=== PATIENT | male | born 1955 | race Caucasian/White ===

== ENCOUNTER 2018-03-10 19:09 | Emergency (ER) | payer OTHER, SELFPAY ==
--- NOTE | 2018-03-10 19:22 | ED_ITS ---
HPI - Chest Pain General Chief Complaint: Chest Pain Stated Complaint: CHEST PAIN Time Seen by Provider: 03/10/18 19:21 Source: patient Mode of arrival: ambulatory Limitations: no limitations History of Present Illness HPI narrative: Patient is a 62-year-old male. Went to walk-in clinic before coming here to the emergency department for evaluation of left-sided chest pain and was directed here for evaluation. Patient states that he has had off and on left-sided chest pain for the past several months. He states that he has that same pain today. He states that it started approximately 5 hr ago. Has been constant for the past 5 hr. He does have some aching in his left arm. He states that this is the symptoms that he has had off and on for the past several months. Has never had a heart issue in the past. Does not take any medications chronically. States that the pain does not get worse with movement or palpation or deep breaths. Is just getting over a course of shingles located on his left flank. He is currently taking acyclovir for this. Has not tried anything for this pain prior to arrival. Related Data Allergies Allergy/AdvReac Type Severity Reaction Status Date / Time Penicillins Allergy Verified 03/10/18 19:32 Sulfa (Sulfonamide Allergy Verified 03/10/18 19:32 Antibiotics) Review of Systems Constitutional Denies fatigue, Denies fever(s), Denies headache(s) and Denies lethargy ENT Ears, Nose, Mouth, and Throat: Denies vertigo, Denies dizziness and Denies headache(s) Cardiovascular Reports chest pain, Reports chest pain at rest, Reports chest pain with activity , Denies syncope, Denies rapid heart rate, Denies edema, Denies lightheadedness , Reports radiating jaw, neck or arm pain, Denies palpitations and Denies dyspnea Respiratory Denies cough, Denies pain with cough, Denies dyspnea and Denies wheezing Gastrointestinal Gastrointestinal: Denies abdominal pain, Denies dyspepsia, Denies diarrhea, Denies nausea and Denies vomiting Genitourinary Denies dysuria Musculoskeletal Denies myalgias and Denies arthralgias Integumentary/Breasts Reports rash (Shingles rash left flank) Neurologic Denies confusion, Denies vertigo, Denies dizziness, Denies syncope and Denies headache(s) Psychiatric Denies confusion Endocrine Denies fatigue and Denies palpitations Hematologic/Lymphatic Denies easy bleeding and Denies easy bruising Allergic/Immunologic Denies wheezing [facility] Medical History Shingles (Acute) Surgical History H/O prostatectomy (Acute) Social History Smoking Status: Former smoker Exam Initial Vital Signs Initial Vital Signs: Vital Signs Temperature 98.8 F 03/10/18 19:23 Pulse Rate 54 L 03/10/18 19:23 Respiratory Rate 16 03/10/18 19:23 Blood Pressure 165/103 H 03/10/18 19:23 Pulse Oximetry 100 03/10/18 19:23 Const General: cooperative, healthy appearing, comfortable, well developed, well groomed and No acute distress Orientation: alert, awake and oriented x3 HENMT Head: normal to inspection and normocephalic Resp Effort & Inspection: normal respiratory effort Auscultation: clear to auscultation bilaterally Cardio Rate: regular rate Rhythm: regular rhythm Heart Sounds: no murmurs Pulses: radial pulses present GI Inspection: non-distended Palpation: soft, No firm and No tender Skin Other: Patient with a rash on his left flank consistent with healing shingles. Neuro General: alert, awake and oriented x3 Cognition: normal cognition Speech: speech normal Gait: normal gait Motor: muscle tone normal throughout Sensory Exam: no sensory deficits noted Extrem General: normal to inspection, capillary refill normal and No edema Psych Appearance: grossly normal and well kempt Course Orders Ordered: ED Orders 03/10/18 19:23 XR chest 1V Stat EKG-12 Lead Stat 03/10/18 19:25 B Type Natriuretic Peptide Stat Complete Blood Count AUTO DIFF Stat Comprehensive Metabolic Panel Stat Lipase Stat Partial Thromboplastin Time Stat Prothrombin Time INR Stat Troponin I Stat 03/10/18 21:57 Troponin I Stat Discontinued Medications Aspirin (Aspirin Chew) 324 mg PO NOW ONE Stop: 03/10/18 19:23 Last Admin: 03/10/18 19:49 Dose: 324 mg Vital Signs - 8 hr 03/10/18 19:23 03/10/18 20:58 03/10/18 21:35 Temperature 98.8 F Pulse Rate 54 L 53 L 51 L Respiratory Rate 16 18 17 Blood Pressure 165/103 H Blood Pressure [Left Arm] 145/89 H 155/95 H Pulse Oximetry 100 92 99 03/10/18 22:10 Temperature Pulse Rate 58 L Respiratory Rate 13 Blood Pressure Blood Pressure [Left Arm] 155/100 H Pulse Oximetry 97 MDM - Chest Pain Lab Data Attestation: I reviewed the patient's lab results. Result diagrams: 03/10/18 19:25 03/10/18 19:25 Lab Results 03/10/18 03/10/18 03/10/18 Range/Units 19:25 19:25 19:25 WBC 9.9 (4.5-11.0) X10^3/uL RBC 5.13 (4.5-5.9) X10^6/uL Hgb 15.6 (13.5-17.5) g/dL Hct 45.4 (41-53) % MCV 88.4 (80-100) fL MCH 30.4 (26-34) PG MCHC 34.3 (30-36) % RDW 14.6 (11.6-14.8) % Plt Count 272 (150-400) X10^3/uL Neut % (Auto) 56.6 (50-75) % Lymph % (Auto) 28.8 (25-40) % [place] % (Auto) 12.1 (3-14) % Eos % (Auto) 1.7 L (2-4) % Baso % (Auto) 0.8 (0-2) % Neut # (Auto) 5600 (5410-7570) /uL PT 12.3 (10.1-12.7) SECONDS INR 1.1 (0.9-1.3) APTT 29 (26.4-36.2) SECONDS Sodium 142 (137-145) mmol/L Potassium 4.0 (3.4-5.1) mmol/L Chloride 103 (98-107) mmol/L Carbon Dioxide 31 (22-32) mmol/L BUN 19 (9-20) mg/dL Creatinine 1.00 (0.66-1.25) mg/dL Estimated GFR > 60.0 (>60) mL/min BUN/Creatinine Ratio 19.0 (6-22) Glucose 88 (80-110) mg/dL Calcium 9.1 (8.4-10.2) mg/dL Total Bilirubin 0.8 (0.2-1.3) mg/dL AST 26 (17-59) IU/L ALT 27 (21-72) IU/L Alkaline Phosphatase 59 (38-126) U/L Troponin I < 0.012 (0.01-0.034) ng/mL B-Natriuretic Peptide < 100.0 (<100) Total Protein 7.0 (6.3-8.2) g/dL Albumin 4.1 (3.5-5.0) g/dL Globulin 2.9 (1.7-4.1) g/dL Albumin/Globulin Ratio 1.4 (1.0-2.8) Lipase 124 (23-300) U/L 03/10/18 Range/Units 21:57 WBC (4.5-11.0) X10^3/uL RBC (4.5-5.9) X10^6/uL Hgb (13.5-17.5) g/dL Hct (41-53) % MCV (80-100) fL MCH (26-34) PG MCHC (30-36) % RDW (11.6-14.8) % Plt Count (150-400) X10^3/uL Neut % (Auto) (50-75) % Lymph % (Auto) (25-40) % [place] % (Auto) (3-14) % Eos % (Auto) (2-4) % Baso % (Auto) (0-2) % Neut # (Auto) (8857-7973) /uL PT (10.1-12.7) SECONDS INR (0.9-1.3) APTT (26.4-36.2) SECONDS Sodium (137-145) mmol/L Potassium (3.4-5.1) mmol/L Chloride (98-107) mmol/L Carbon Dioxide (22-32) mmol/L BUN (9-20) mg/dL Creatinine (0.66-1.25) mg/dL Estimated GFR (>60) mL/min BUN/Creatinine Ratio (6-22) Glucose (80-110) mg/dL Calcium (8.4-10.2) mg/dL Total Bilirubin (0.2-1.3) mg/dL AST (17-59) IU/L ALT (21-72) IU/L Alkaline Phosphatase (38-126) U/L Troponin I < 0.012 (0.01-0.034) ng/mL B-Natriuretic Peptide (<100) Total Protein (6.3-8.2) g/dL Albumin (3.5-5.0) g/dL Globulin (1.7-4.1) g/dL Albumin/Globulin Ratio (1.0-2.8) Lipase (23-300) U/L Imaging Data Chest x-ray: Radiologist's impression: [address] [address] XRay Report Signed Patient: CLEMENTE ARCHIBALD#: [id number] : 4Acct:[id number] Age/Sex: 62 / MDate of Service: 03/10/18 Loc: ED Accession Number: [id number] Procedure: XR chest 1V Ordering Provider: Silverio Dubois D.O. PROCEDURE: XR CHEST 1V INDICATIONS: chest pain TECHNIQUE: One view of the chest was acquired. COMPARISON: None. FINDINGS: Surgical changes and devices: None. Lungs and pleura: On this semiupright portable chest examination, no large pneumothorax or large pleural effusions are seen. No focal infiltrates are seen. Mediastinum: Mediastinal contours appear normal. Heart size is normal. The cardiac contours are within normal limits. The aorta demonstrates calcification and tortuosity. Bones and chest wall: No suspicious bony lesions. Mild dextroconvex scoliotic curvature is seen. Overlying soft tissues appear unremarkable. IMPRESSION: Portable chest within normal limits. Dictated by: Arron Elizondo M.D. on 03/10/2018 at 19:40 Approved by: Arron Elizondo M.D. on 03/10/2018 at 19:41 ECG Data Attestation: I personally reviewed and interpreted this ECG as follows: Prior ECG tracings: not available for review Interpretation: Sinus bradycardia Ventricular rate of 55 Normal axis Normal intervals Normal QRS Normal QTC No ST T wave changes MDM Narrative Medical decision making narrative: Patient was given aspirin here in the emergency department. He EKG shows no signs of ischemic changes. Has had 2- troponins here in the ER. The 2nd 1 greater than 6 hr after the onset of his pain. He was chest pain free towards the end of his visit here. He was slightly hypertensive. We did discuss this. We did discuss the importance of taking his blood pressure at home. We did discuss his options to include being admitted to the hospital for stress test or following up with his primary doctor as an outpatient. The patient opted to follow up with his primary care doctor. I informed him that he did need to do this and it was important that he get the stress test. He was given return precautions. He expressed understanding and agreement with plan. Discharge Plan Departure Patient Disposition: Home Clinical Impression: Atypical chest pain Instructions: DI for Atypical Chest Pain Activity Restrictions/Additional Instructions: Recommend you take your blood pressure at home like we discussed. It is important that you contact your primary care doctor to schedule a stress test as an outpatient. Return to the emergency department for any new symptoms, worsening pain, change in symptoms, or any other concerning symptoms.
[2018-03-10 19:23] VITALS: BP 165/103; PULSE 54; RESP 16; TEMP 37.1; O2SAT 100; BMI 26.5
[2018-03-10 19:33] LABS: Add Manual Diff / Slide Review NO; Basophils Percent Auto 0.8 % (0-2); Eosinophils Percent Auto 1.7 % (2-4); Hematocrit 45.4 % (41-53); Hemoglobin 15.6 g/dL (13.5-17.5); Lymphocytes Percent Auto 28.8 % (25-40); Mean Corpuscular HGB Conc 34.3 % (30-36); Mean Corpuscular Hemoglobin 30.4 PG (26-34); Mean Corpuscular Volume 88.4 fL (80-100); Monocytes Percent Auto 12.1 % (3-14); Neutrophils Absolute Auto 5600 /uL (3000-5900); Neutrophils Percent Auto 56.6 % (50-75); Platelet Count 272 X10^3/uL (150-400); Red Blood Cell Count 5.13 X10^6/uL (4.5-5.9); Red Cell Distribution Width 14.6 % (11.6-14.8); White Blood Cell Count 9.9 X10^3/uL (4.5-11.0)
[2018-03-10 19:45] LABS: Alanine Aminotransferase 27 IU/L (21-72); Albumin 4.1 g/dL (3.5-5.0); Albumin Globulin Ratio 1.4 (1.0-2.8); Alkaline Phosphatase 59 U/L (38-126); Aspartate Aminotransferase 26 IU/L (17-59); Bilirubin Total 0.8 mg/dL (0.2-1.3); Blood Urea Nitrogen 19 mg/dL (9-20); Calcium 9.1 mg/dL (8.4-10.2); Carbon Dioxide 31 mmol/L (22-32); Chloride 103 mmol/L (98-107); Estimated Glomerular Filt Rate > 60.0 mL/min (>60); Globulin 2.9 g/dL (1.7-4.1); Glucose 88 mg/dL (80-110); HEMOLYSIS < 15 (0-50); Lipase 124 U/L (23-300); Sodium 142 mmol/L (137-145)
[2018-03-10 19:47] LABS: INR 1.1 (0.9-1.3); Prothrombin Time 12.3 SECONDS (10.1-12.7)
[2018-03-10 19:49] LABS: PTT Partial Thromboplastin Tim 29 SECONDS (26.4-36.2)
[2018-03-10] MEDS: ASPIRIN 81 MG TAB 324 MG PO (19:49)
[2018-03-10 19:57] LABS: Troponin I < 0.012 ng/mL (0.01-0.034)
[2018-03-10 19:58] LABS: B Type Natriuretic Peptide < 100.0 (<100)
[2018-03-10 20:58] VITALS: BP 145/89; PULSE 53; RESP 18; O2SAT 92
[2018-03-10 21:35] VITALS: BP 155/95; PULSE 51; RESP 17; O2SAT 99
[2018-03-10 22:10] VITALS: BP 155/100; PULSE 58; RESP 13; O2SAT 97
[2018-03-10 22:26] LABS: Troponin I < 0.012 ng/mL (0.01-0.034)
[2018-03-10 22:40] VITALS: BP 153/83; PULSE 21; RESP 17; O2SAT 97
== END 2018-03-10 22:47 | disposition home or self-care (01) ==
PROVIDERS: Emergency Provider Emergency Medicine; PCP Physician Assistant
DX: R07.89 Other chest pain (principal)
CPT/HCPCS: 36415; 36591; 71045; 80053; 83690; 83880; 84484; 85025; 85610; 85730; 93005; 99283; 99285

== ENCOUNTER 2018-04-01 05:05 | Emergency (ER) | payer OTHER, SELFPAY ==
[2018-04-01 05:28] VITALS: BP 159/105; PULSE 72; RESP 20; TEMP 36.7; O2SAT 98; BMI 26.5
--- NOTE | 2018-04-01 06:04 | ED.MALEGU ---
HPI - Male Genitourinary General Chief complaint: Urogenital-Male Stated complaint: serious urinary blockage Time Seen by Provider: 04/01/18 05:07 Source: patient Mode of arrival: ambulatory Limitations: no limitations History of Present Illness HPI Narrative: 63-year-old male presents with a chief complaint of inability to urinate since last night. She has severe suprapubic pain and has nausea but denies any vomiting. He has had no fever or chills. He has an extensive prostate history including a trans urethral resection of the prostate followed by subsequent follow-up surgical interventions for strictures and/or scar tissue. His last intervention was 2013 in [place], [place]. He denies any recent dysuria, frequency or urgency. He has no back pain, weakness, or other systemic symptoms Related Data Allergies Allergy/AdvReac Type Severity Reaction Status Date / Time Penicillins Allergy Verified 03/10/18 19:32 Sulfa (Sulfonamide Allergy Verified 03/10/18 19:32 Antibiotics) Review of Systems Review of Systems All systems reviewed & are unremarkable except as noted in HPI and below Constitutional Denies chills, Denies fever(s), Denies lethargy and Denies weakness Eyes Denies change in vision, Denies eye discharge, Denies irritation and Denies loss of vision ENT Ears, Nose, Mouth, and Throat: Denies change in voice, Denies neck pain and Denies sore throat Cardiovascular Denies chest pain, Denies irregular heart rhythm, Denies lightheadedness, Denies palpitations, Denies dyspnea, Denies dyspnea on exertion and Denies orthopnea Respiratory Denies cough, Denies dyspnea, Denies dyspnea on exertion and Denies wheezing Gastrointestinal Gastrointestinal: Reports abdominal pain (suprapubic), Denies change in bowel habits, Denies diarrhea, Denies nausea and Denies vomiting Genitourinary Denies hematuria, Denies flank pain, Denies urinary incontinence and Denies urinary urgency Comments: urinary retention Musculoskeletal Denies neck pain Integumentary/Breasts Denies pruritus, Denies erythema, Denies rash and Denies wounds Neurologic Denies confusion, Denies loss of vision and Denies weakness Psychiatric Denies anxiety, Denies confusion, Denies depression, Denies homicidal ideation and Denies suicidal ideation Endocrine Denies palpitations Hematologic/Lymphatic Denies easy bruising Allergic/Immunologic Denies wheezing [facility] Medical History BPH (benign prostatic hyperplasia) (Acute) HTN (hypertension) (Acute) Shingles (Acute) Surgical History H/O prostatectomy (Acute) Social History Smoking Status: Former smoker Exam Narrative Exam Narrative: 63-year-old male, obviously quite uncomfortable, clutching his lower abdomen and pacing Initial Vital Signs Initial Vital Signs: Vital Signs Temperature 98.1 F 04/01/18 05:28 Pulse Rate 72 04/01/18 05:28 Respiratory Rate 20 04/01/18 05:28 Blood Pressure 159/105 H 04/01/18 05:28 Pulse Oximetry 98 04/01/18 05:28 Const General: cooperative, well developed and acute distress Nutritional Appearance: well nourished Orientation: alert, awake, oriented x3 and not confused HENMT Head: normocephalic and atraumatic Ears: external ears normal and TM's normal bilaterally Nose: external nose normal and No nasal discharge Face and sinus: sinuses nontender, face symmetric, no sinus tenderness and No dry mucous membranes Mouth: oral mucosae normal and moist mucous membranes Teeth and gingiva: dentition normal Throat: tonsils normal and uvula midline Eyes General: appearance normal, both eyes and all related structures Eyelids: eyelids normal Conjunctivae: conjunctivae normal Sclera: sclerae normal Pupils: PERRL EOM: EOM intact bilaterally Resp Effort & Inspection: normal respiratory effort, able to speak in complete sentences, no respiratory distress and no use of accessory muscles Auscultation: clear to auscultation bilaterally, no rales, no rhonchi and no wheezes Cardio Rate: regular rate Rhythm: regular rhythm Heart Sounds: no click, no gallops, no murmurs and no rubs Pulses: normal peripheral pulses GI Inspection: non-distended Palpation: soft, no hepatosplenomegaly, No guarding, No pulsatile mass and tender Auscultation: normal bowel sounds Back/Spine/Pelvis Back: No CVA tenderness Cervical Spine: cervical ROM normal and No pain with cervical ROM Thoracic/Lumbar Spine: thoracic and lumbar spine normal to inspection Skin General: no rashes or lesions noted, No jaundice and No petechiae Neuro General: alert, oriented x3, gait normal and no focal motor deficits Speech: speech normal Extrem General: full ROM, no clubbing, cyanosis or edema, no pedal edema and no calf tenderness Psych Appearance: well kempt Mental Status: mental status grossly normal Attitude: cooperative Thought Content: normal and suicidality Judgment: judgment good Course Course Narrative: Patient presented with longstanding history prior occurrences of urinary retention. He states he was unable to urinate since last evening. Bladder scan notes greater than 1000 of urine. Nursing attempted a 16 [place] followed by 14 [place], then a 14 q.day without success. I then attempted with a pediatric 8 [place]an catheter and also hit an obstruction in his urethra. At this point a call to [facility] was placed given our lack of access to Urology. They had urology from [facility] in [place] call back whom requested transfer to the [facility] where he would be promptly evaluated by Urology on arrival. They did recommend the placement of a spinal needle in the suprapubic region for a temporizing measure if needed. While on the phone with [facility] the patient was able to urinate a few 100 cc of urine and he felt tremendous relief. At this point we made another attempt to pass a 14 [place]an coude catheter and were unsuccessful. Thankfully the patient has experienced some relief but he still has nearly 1 L in his bladder and will need urgent urologic evaluation for placement of a catheter. The most prompt EMS transport down is 1 hour away, and with his small amount of urination the patient can safely go down to [facility] ED by POV. [facility]IN paperwork filled out. IV left in place, wrapped in coban. Dr. Rosales at [facility] ED is happy to accept and knows we have spoken with urology. Orders Ordered: ED Orders 04/01/18 05:00 Basic Metabolic Panel Stat Complete Blood Count AUTO DIFF Stat Discontinued Medications Hydromorphone HCl (Dilaudid) 0.5 mg IV NOW ONE Stop: 04/01/18 06:03 Vital Signs - 8 hr 04/01/18 05:28 Temperature 98.1 F Pulse Rate 72 Respiratory Rate 20 Blood Pressure 159/105 H Pulse Oximetry 98 MDM - Male Genitourinary Lab Data Result diagrams: 04/01/18 05:00 04/01/18 05:00 Lab Results 04/01/18 04/01/18 Range/Units 05:00 05:00 WBC 7.2 (4.5-11.0) X10^3/uL RBC 5.50 (4.5-5.9) X10^6/uL Hgb 16.5 (13.5-17.5) g/dL Hct 48.2 (41-53) % MCV 87.5 (80-100) fL MCH 30.1 (26-34) PG MCHC 34.4 (30-36) % RDW 14.3 (11.6-14.8) % Plt Count 290 (150-400) X10^3/uL Neut % (Auto) Not Reportable Lymph % (Auto) Not Reportable [place] % (Auto) Not Reportable Eos % (Auto) Not Reportable Baso % (Auto) Not Reportable Total Counted 100 Seg Neutrophils % 63.0 (38-70) % Lymphocytes % (Manual) 25.0 (25-45) % Monocytes % (Manual) 11.0 (2-11) % Eosinophils % (Manual) 1.0 L (2-4) % Neutrophils # (Manual) 4536 (1207-5476) /uL RBC Morphology Normal morphology Sodium 141 (137-145) mmol/L Potassium 3.8 (3.4-5.1) mmol/L Chloride 106 (98-107) mmol/L Carbon Dioxide 21 L (22-32) mmol/L BUN 18 (9-20) mg/dL Creatinine 0.90 (0.66-1.25) mg/dL Estimated GFR > 60.0 (>60) mL/min BUN/Creatinine Ratio 20.0 (6-22) Glucose 119 H (80-110) mg/dL Calcium 9.3 (8.4-10.2) mg/dL Discharge Plan Departure Patient Disposition: [facility] Clinical Impression: Acute urinary retention
--- NOTE | 2018-04-01 06:07 | ED_ITS ---
HPI - Male Genitourinary General Chief complaint: Urogenital-Male Stated complaint: serious urinary blockage Time Seen by Provider: 04/01/18 05:07 Source: patient Mode of arrival: ambulatory Limitations: no limitations History of Present Illness HPI Narrative: 63-year-old male presents with a chief complaint of inability to urinate since last night. She has severe suprapubic pain and has nausea but denies any vomiting. He has had no fever or chills. He has an extensive prostate history including a trans urethral resection of the prostate followed by subsequent follow-up surgical interventions for strictures and/or scar tissue. His last intervention was 2013 in [place]. He denies any recent dysuria, frequency or urgency. He has no back pain, weakness, or other systemic symptoms Related Data Allergies Allergy/AdvReac Type Severity Reaction Status Date / Time Penicillins Allergy Verified 03/10/18 19:32 Sulfa (Sulfonamide Allergy Verified 03/10/18 19:32 Antibiotics) Review of Systems Review of Systems All systems reviewed & are unremarkable except as noted in HPI and below Constitutional Denies chills, Denies fever(s), Denies lethargy and Denies weakness Eyes Denies change in vision, Denies eye discharge, Denies irritation and Denies loss of vision ENT Ears, Nose, Mouth, and Throat: Denies change in voice, Denies neck pain and Denies sore throat Cardiovascular Denies chest pain, Denies irregular heart rhythm, Denies lightheadedness, Denies palpitations, Denies dyspnea, Denies dyspnea on exertion and Denies orthopnea Respiratory Denies cough, Denies dyspnea, Denies dyspnea on exertion and Denies wheezing Gastrointestinal Gastrointestinal: Reports abdominal pain (suprapubic), Denies change in bowel habits, Denies diarrhea, Denies nausea and Denies vomiting Genitourinary Denies hematuria, Denies flank pain, Denies urinary incontinence and Denies urinary urgency Comments: urinary retention Musculoskeletal Denies neck pain Integumentary/Breasts Denies pruritus, Denies erythema, Denies rash and Denies wounds Neurologic Denies confusion, Denies loss of vision and Denies weakness Psychiatric Denies anxiety, Denies confusion, Denies depression, Denies homicidal ideation and Denies suicidal ideation Endocrine Denies palpitations Hematologic/Lymphatic Denies easy bruising Allergic/Immunologic Denies wheezing [facility] Medical History BPH (benign prostatic hyperplasia) (Acute) HTN (hypertension) (Acute) Shingles (Acute) Surgical History H/O prostatectomy (Acute) Social History Smoking Status: Former smoker Exam Narrative Exam Narrative: 63-year-old male, obviously quite uncomfortable, clutching his lower abdomen and pacing Initial Vital Signs Initial Vital Signs: Vital Signs Temperature 98.1 F 04/01/18 05:28 Pulse Rate 72 04/01/18 05:28 Respiratory Rate 20 04/01/18 05:28 Blood Pressure 159/105 H 04/01/18 05:28 Pulse Oximetry 98 04/01/18 05:28 Const General: cooperative, well developed and acute distress Nutritional Appearance: well nourished Orientation: alert, awake, oriented x3 and not confused HENMT Head: normocephalic and atraumatic Ears: external ears normal and TM's normal bilaterally Nose: external nose normal and No nasal discharge Face and sinus: sinuses nontender, face symmetric, no sinus tenderness and No dry mucous membranes Mouth: oral mucosae normal and moist mucous membranes Teeth and gingiva: dentition normal Throat: tonsils normal and uvula midline Eyes General: appearance normal, both eyes and all related structures Eyelids: eyelids normal Conjunctivae: conjunctivae normal Sclera: sclerae normal Pupils: PERRL EOM: EOM intact bilaterally Resp Effort & Inspection: normal respiratory effort, able to speak in complete sentences, no respiratory distress and no use of accessory muscles Auscultation: clear to auscultation bilaterally, no rales, no rhonchi and no wheezes Cardio Rate: regular rate Rhythm: regular rhythm Heart Sounds: no click, no gallops, no murmurs and no rubs Pulses: normal peripheral pulses GI Inspection: non-distended Palpation: soft, no hepatosplenomegaly, No guarding, No pulsatile mass and tender Auscultation: normal bowel sounds Back/Spine/Pelvis Back: No CVA tenderness Cervical Spine: cervical ROM normal and No pain with cervical ROM Thoracic/Lumbar Spine: thoracic and lumbar spine normal to inspection Skin General: no rashes or lesions noted, No jaundice and No petechiae Neuro General: alert, oriented x3, gait normal and no focal motor deficits Speech: speech normal Extrem General: full ROM, no clubbing, cyanosis or edema, no pedal edema and no calf tenderness Psych Appearance: well kempt Mental Status: mental status grossly normal Attitude: cooperative Thought Content: normal and suicidality Judgment: judgment good Course Course Narrative: Patient presented with longstanding history prior occurrences of urinary retention. He states he was unable to urinate since last evening. Bladder scan notes greater than 1000 of urine. Nursing attempted a 16 Romanian followed by 14 Romanian, then a 14 q.day without success. I then attempted with a pediatric 8 Romanian catheter and also hit an obstruction in his urethra. At this point a call to [facility] was placed given our lack of access to Urology. They had urology from [place] in [place] call back whom requested transfer to the [place] [facility] where he would be promptly evaluated by Urology on arrival. They did recommend the placement of a spinal needle in the suprapubic region for a temporizing measure if needed. While on the phone with [place] the patient was able to urinate a few 100 cc of urine and he felt tremendous relief. At this point we made another attempt to pass a 14 Romanian coude catheter and were unsuccessful. Thankfully the patient has experienced some relief but he still has nearly 1 L in his bladder and will need urgent urologic evaluation for placement of a catheter. The most prompt EMS transport down is 1 hour away, and with his small amount of urination the patient can safely go down to [facility] ED by POV. CHIN paperwork filled out. IV left in place, wrapped in coban. Dr. Rosales at [facility] ED is happy to accept and knows we have spoken with urology. Orders Ordered: ED Orders 04/01/18 05:00 Basic Metabolic Panel Stat Complete Blood Count AUTO DIFF Stat Discontinued Medications Hydromorphone HCl (Dilaudid) 0.5 mg IV NOW ONE Stop: 04/01/18 06:03 Vital Signs - 8 hr 04/01/18 05:28 Temperature 98.1 F Pulse Rate 72 Respiratory Rate 20 Blood Pressure 159/105 H Pulse Oximetry 98 MDM - Male Genitourinary Lab Data Result diagrams: 04/01/18 05:00 04/01/18 05:00 Lab Results 04/01/18 04/01/18 Range/Units 05:00 05:00 WBC 7.2 (4.5-11.0) X10^3/uL RBC 5.50 (4.5-5.9) X10^6/uL Hgb 16.5 (13.5-17.5) g/dL Hct 48.2 (41-53) % MCV 87.5 (80-100) fL MCH 30.1 (26-34) PG MCHC 34.4 (30-36) % RDW 14.3 (11.6-14.8) % Plt Count 290 (150-400) X10^3/uL Neut % (Auto) Not Reportable Lymph % (Auto) Not Reportable [place] % (Auto) Not Reportable Eos % (Auto) Not Reportable Baso % (Auto) Not Reportable Total Counted 100 Seg Neutrophils % 63.0 (38-70) % Lymphocytes % (Manual) 25.0 (25-45) % Monocytes % (Manual) 11.0 (2-11) % Eosinophils % (Manual) 1.0 L (2-4) % Neutrophils # (Manual) 4536 (6593-3461) /uL RBC Morphology Normal morphology Sodium 141 (137-145) mmol/L Potassium 3.8 (3.4-5.1) mmol/L Chloride 106 (98-107) mmol/L Carbon Dioxide 21 L (22-32) mmol/L BUN 18 (9-20) mg/dL Creatinine 0.90 (0.66-1.25) mg/dL Estimated GFR > 60.0 (>60) mL/min BUN/Creatinine Ratio 20.0 (6-22) Glucose 119 H (80-110) mg/dL Calcium 9.3 (8.4-10.2) mg/dL Discharge Plan Departure [facility] Clinical Impression: Acute urinary retention
[2018-04-01 06:12] LABS: Hematocrit 48.2 % (41-53); Hemoglobin 16.5 g/dL (13.5-17.5); Mean Corpuscular HGB Conc 34.4 % (30-36); Mean Corpuscular Hemoglobin 30.1 PG (26-34); Mean Corpuscular Volume 87.5 fL (80-100); Platelet Count 290 X10^3/uL (150-400); Red Cell Distribution Width 14.3 % (11.6-14.8); White Blood Cell Count 7.2 X10^3/uL (4.5-11.0)
[2018-04-01 06:16] LABS: Blood Urea Nitrogen 18 mg/dL (9-20); Calcium 9.3 mg/dL (8.4-10.2); Carbon Dioxide 21 mmol/L (22-32); Chloride 106 mmol/L (98-107); Estimated Glomerular Filt Rate > 60.0 mL/min (>60); Glucose 119 mg/dL (80-110); HEMOLYSIS < 15 (0-50); Potassium 3.8 mmol/L (3.4-5.1); Sodium 141 mmol/L (137-145)
[2018-04-01 06:19] LABS: Add Manual Diff / Slide Review YES
[2018-04-01 06:30] LABS: Neutrophils Absolute Manual 4536 /uL (3000-5900); RBC Morphology Normal Morphology; Total Cells Counted 100
--- NOTE | 2018-04-01 07:00 | PC.NURSE ---
pt reports he had last void at 8pm last night. this morning he was too uncomfortable and came into the er. he has a hx of prostate removal and terp and has had to have catheter placment before.
--- NOTE | 2018-04-01 07:04 | PC.NURSE ---
three attempts to place [place] failed. this nurse tried a 14fr and 16fr coude with no success. catheter feels like it hits a wall and can not aadvance. not even a drop of urine in tubing. provider BERNARDA then attempted with a 10fr peds catheter hoping he could advance it. no success. pt then called for nurse excited because he was able to dribble void into a urinal. he voided 250 in a urinal. another attempt was tried after his void to place a catheter with no success. there is still a solid feeling obstruction preventing catheter from advancing. no further attempts made. Post void scan showed 588ml. provider and pt came up with a plan to have his friend come get him and transort him to prov. IV left in place and wrapped with coban.
--- NOTE | 2018-04-01 07:15 | PC.NURSE ---
report given to Letty in the ER at [facility].
[2018-04-01 07:19] VITALS: BP 143/89; PULSE 63; O2SAT 96
--- NOTE | 2018-04-01 07:45 | PC.NURSE ---
transfer to [facility] for urology consult. pt verbal understanding plan of care, pain free at this time, left forearm with iv hl, intact ambulate with steady gait.
== END 2018-04-01 07:45 | disposition short-term general hospital (02) ==
PROVIDERS: Emergency Provider Emergency Medicine; PCP Physician Assistant
DX: R33.9 Retention of urine, unspecified (principal)
CPT/HCPCS: 36591; 51798; 80048; 85025; 96374; 99283; 99284

== ENCOUNTER 2018-05-27 09:59 | Inpatient (IN) | payer OTHER, SELFPAY ==
[2018-05-27] VITALS (25 sets, daily range): BP systolic 117–157; BP diastolic 52–98; PULSE 65–92; RESP 12–20; TEMP 36.4–38.6; O2SAT 88–98; BMI 27.8
--- NOTE | 2018-05-27 | PATH_ITS ---
[facility] Accession Number: [id number] . 01 Material submitted: . PERFORATED SIGMOID . 01 Clinical history: . DIVERTICULITIS . 02 Diagnosis: Resected Sigmoid Colon: Extensive diverticulosis with associated acute diverticulitis with a small pericolic abscess. Negative for malignancy and significant atypia. MRV/05/30/2018 . 02 Electronically signed: . Lloyd Farah MD, Pathologist NPI- [id number] . 01 Gross description: . Received in formalin, labeled perforated sigmoid diverticulitis, is an unoriented segment of colon (length-11.5 cm, resection margin #1 diameter-2.5 cm, resection margin #2 diameter-3.8 cm) with attached adipose tissue (up to 6.5 cm in depth). The resection margins are received stapled. The serosa is pale heard-pink smooth and shiny. The mucosa is pale heard and focally flat with diffuse diverticuli. No nodules, masses, lesions or perforations are identified. Multiple possible lymph nodes (0.1 cm-0.5 cm) are identified. The resection margins are inked black. Section code: (A1) resection margin #1, longitudinal, hospital sales representative; (A2) resection margin #2, longitudinal hospital sales representative; (A3-A7) colon segment, hospital sales representative serial sections submitted from resection margin #1 to #2; (A8) multiple intact lymph nodes. ([id number]) / . 02 Pathologist provided ICD-10: K57.20 . 02 CPT . 428040 [facility]: [facility] [address] [place] [address] [address] [facility], [place], [place] [id number] MD Malachi Goldberg MD Phone: [phone] Performed at: 02 [facility] [id number] [place] [id number] MD Lorraine Freeman MD Phone: [phone]
--- NOTE | 2018-05-27 10:26 | ED.ABDPAIN ---
HPI - Abdominal Pain General Chief Complaint: Abdominal Pain Stated Complaint: ABDOMINAL PAIN Time Seen by Provider: 05/27/18 10:21 Source: patient and old records reviewed Limitations: no limitations History of Present Illness HPI narrative: This is a 63-year-old male who comes to the emergency department with abdominal pain. Patient states it is on the right side but also kind of extends towards the left. Patient states it started this morning about 5 or 6:00 a.m. in the morning. It woke him up from sleep it has been initially intermittent waxing and waning in intensity but has become more constant and severe. Patient states it does not radiate to the testicles. He does not have any pain in his back. It is not changing location he has not had any diaphoresis or sweating. No fevers. He has felt nauseated at the maximum intensity of pain but had no vomiting. Had a normal bowel movement today without any black or blood. He also urinated at the same time this was at about an hour prior to arrival. Patient states that he did have difficulty with urination got transferred to [place] and had a catheter placed couple weeks ago. He was self catheterization arising until about 2 or 3 weeks ago. He has been able to urinate regularly was diagnosed with a urethral stricture. Patient states he has osteoarthritis but denies any other medical issues. He has not take any medications regularly. He states he had prostate surgery in the past. Related Data Home Medications Medication Instructions Recorded Confirmed Glucosamine Sulf-Chondroitin 1 tab PO DAILY 05/27/18 05/27/18 ascorbic acid (vitamin C) [Vitamin 2,000 mg PO DAILY 05/27/18 05/27/18 C] flaxseed oil 1 cap PO DAILY 05/27/18 05/27/18 magnesium 1 tab PO DAILY 05/27/18 05/27/18 multivitamin 1 tab PO DAILY 05/27/18 05/27/18 Allergies Allergy/AdvReac Type Severity Reaction Status Date / Time Penicillins Allergy Verified 05/27/18 11:22 Sulfa (Sulfonamide Allergy Verified 05/27/18 11:22 Antibiotics) Review of Systems Review of Systems All systems reviewed & are unremarkable except as noted in HPI and below Constitutional Denies anorexia, Denies excessive sweating, Denies fever(s) and Denies night sweats Cardiovascular Denies chest pain and Denies dyspnea Respiratory Denies dyspnea Gastrointestinal Gastrointestinal: Reports abdominal pain, Denies melena, Denies hematochezia, Denies change in bowel habits, Denies constipation, Denies diarrhea, Reports nausea and Denies vomiting Genitourinary Reports as per HPI, Denies hematuria, Reports difficulty urinating (was self cathing, normal for several weeks), Denies genital pain, Denies flank pain, Denies scrotal swelling, Denies testicular pain, Denies urinary frequency, Denies urinary incontinence and Denies urinary urgency Musculoskeletal Denies back pain Endocrine Denies excessive sweating [facility] Medical History BPH (benign prostatic hyperplasia) (Acute) HTN (hypertension) (Acute) Shingles (Acute) Surgical History H/O prostatectomy (Acute) Social History household members: none Smoking Status: Former smoker Exam Narrative Exam Narrative: GENERAL: Alert and oriented x three, well nourished, well appearing male in severe pain. Patient is moaning when I walk into the room but is able to stop it answer questions fairly easily. HEENT: Head normocephalic, atraumatic, EOMI, pupils reactive, face symmetric, moist mucous membranes NECK: Supple, full range of motion CARDIOVASCULAR: Regular rate and rhythm without murmurs, rubs or gallops. RESPIRATORY: Breath sounds equal bilaterally, no wheezes rales or rhonchi. ABDOMEN: Soft, positive for generalized tenderness but greatest at the right lower quadrant. Normoactive bowel sounds all 4 quadrants. No guarding or rebound, rigidity, no mass : No CVA tenderness bilaterally. EXTREMITIES: Normal range of motion, no clubbing or edema. Neurovascularly intact NEUROLOGICAL: Cranial nerves II through XII grossly intact. Moving all extremities SKIN: Warm, dry, no petechiae, no rashes or lesions. Initial Vital Signs Initial Vital Signs: Vital Signs Temperature 97.9 F 05/27/18 10:12 Pulse Rate 68 05/27/18 10:12 Respiratory Rate 20 05/27/18 10:12 Blood Pressure 136/98 H 05/27/18 10:12 Pulse Oximetry 97 05/27/18 10:12 Course Orders Ordered: ED Orders 05/27/18 10:30 Complete Blood Count AUTO DIFF Stat Comprehensive Metabolic Panel Stat Lipase Stat Type and Screen Stat 05/27/18 10:55 CT angio chest abdomen pelvis Stat 05/27/18 16:40 Wound Culture and Gram Stain Routine Fentanyl (Sublimaze) 50 mcg IV Q5MIN PRN PRN Reason: Pain, Moderate (4-6) Hydromorphone HCl (Dilaudid) 1 mg IV Q1HR PRN PRN Reason: Pain, Moderate (4-6) Hydromorphone HCl (Dilaudid) 0.5 mg IV Q5MIN PRN PRN Reason: Pain, Moderate (4-6) Last Admin: 05/27/18 18:28 Dose: 0.5 mg Admin: 05/27/18 18:19 Dose: 0.5 mg Sodium Chloride (Normal Saline 0.9%) 1,000 mls @ 250 mls/hr IV CONT DERRICK Last Infusion: 05/27/18 15:30 Dose: 0 mls/hr Infusion: 05/27/18 12:43 Dose: 250 mls/hr Admin: 05/27/18 12:18 Dose: 250 mls/hr Lactated Ringer's (Lactated Ringers) 1,000 mls @ 42 mls/hr IV CONT DERRICK Last Admin: 05/27/18 16:43 Dose: 42 mls/hr Infusion: 05/27/18 16:43 Dose: 42 mls/hr Admin: 05/27/18 16:06 Dose: 42 mls/hr Ketorolac Tromethamine (Toradol) 15 mg IV NOW PRN PRN Reason: Pain, Moderate (4-6) Meperidine HCl (Demerol) 25 mg IV Q5MIN PRN PRN Reason: Pain or shivering Ondansetron HCl (Zofran) 4 mg IV Q6HR PRN PRN Reason: Nausea And Vomiting Ondansetron HCl (Zofran) 4 mg IV NOW PRN PRN Reason: Nausea And Vomiting Discontinued Medications Sodium Chloride 1,000 ml/ (Bacitracin 50,000 unit) 0 ml IRR NOW ONE Stop: 05/27/18 16:53 Last Admin: 05/27/18 16:53 Dose: 3 irrig.soln Hydromorphone HCl (Dilaudid) 1 mg IV NOW ONE Stop: 05/27/18 11:15 Last Admin: 05/27/18 11:17 Dose: 1 mg Sodium Chloride (Normal Saline 0.9%) 1,000 mls @ 1,000 mls/hr IV BOLUS ONE Stop: 05/27/18 11:24 Last Infusion: 05/27/18 12:11 Dose: 0 mls/hr Admin: 05/27/18 11:03 Dose: 1,000 mls/hr Metronidazole (Flagyl) 500 mg in 100 mls @ 100 mls/hr IV NOW ONE Stop: 05/27/18 12:42 Last Infusion: 05/27/18 12:43 Dose: 100 mls/hr Admin: 05/27/18 11:59 Dose: 100 mls/hr Levofloxacin (Levaquin) 750 mg in 150 mls @ 100 mls/hr IV NOW ONE Stop: 05/27/18 13:12 Last Infusion: 05/27/18 12:42 Dose: 100 mls/hr Admin: 05/27/18 11:59 Dose: 100 mls/hr Ketorolac Tromethamine (Toradol) 30 mg IV NOW ONE Stop: 05/27/18 10:26 Last Admin: 05/27/18 11:03 Dose: 30 mg Ondansetron HCl (Zofran) 4 mg IV NOW ONE Stop: 05/27/18 10:26 Last Admin: 05/27/18 10:45 Dose: 4 mg Sodium Chloride (Normal Saline 0.9%) 250 ml IV NOW ONE Stop: 05/27/18 12:15 Last Admin: 05/27/18 12:19 Dose: Vital Signs - 8 hr 05/27/18 11:11 05/27/18 11:29 05/27/18 12:01 Temperature Pulse Rate 76 77 85 Respiratory Rate 20 20 18 Blood Pressure Blood Pressure [Right Arm] 129/59 L 139/52 L 154/82 H Pulse Oximetry 88 L 97 05/27/18 13:06 05/27/18 15:14 05/27/18 15:41 Temperature 98.5 F 98.1 F 101.5 F H Pulse Rate 91 H 90 92 H Respiratory Rate 20 19 16 Blood Pressure 157/79 H 131/72 139/72 Blood Pressure [Right Arm] Pulse Oximetry 95 95 95 05/27/18 17:55 05/27/18 18:00 05/27/18 18:05 Temperature 99.3 F Pulse Rate 82 78 86 Respiratory Rate 20 16 20 Blood Pressure 129/71 123/65 127/66 Blood Pressure [Right Arm] Pulse Oximetry 91 94 96 05/27/18 18:10 05/27/18 18:20 05/27/18 18:26 Temperature 99.2 F Pulse Rate 78 75 Respiratory Rate 12 Blood Pressure 125/64 118/83 Blood Pressure [Right Arm] Pulse Oximetry 94 93 05/27/18 18:36 05/27/18 18:47 Temperature Pulse Rate 73 Respiratory Rate 16 Blood Pressure 117/66 Blood Pressure [Right Arm] Pulse Oximetry 90 L 93 MDM - Abdominal Pain Lab Data Attestation: I reviewed the patient's lab results. Result diagrams: 05/27/18 10:30 05/27/18 10:30 Lab Results 05/27/18 05/27/18 05/27/18 Range/Units 10:30 10:30 10:30 WBC 13.7 H (4.5-11.0) X10^3/uL RBC 5.18 (4.5-5.9) X10^6/uL Hgb 15.4 (13.5-17.5) g/dL Hct 45.8 (41-53) % MCV 88.3 (80-100) fL MCH 29.8 (26-34) PG MCHC 33.7 (30-36) % RDW 13.8 (11.6-14.8) % Plt Count 255 (150-400) X10^3/uL Neut % (Auto) 78.1 H (50-75) % Lymph % (Auto) 13.7 L (25-40) % [place] % (Auto) 6.8 (3-14) % Eos % (Auto) 0.9 L (2-4) % Baso % (Auto) 0.5 (0-2) % Neut # (Auto) 75314 H (0888-7305) /uL Sodium 140 (137-145) mmol/L Potassium 3.8 (3.4-5.1) mmol/L Chloride 101 (98-107) mmol/L Carbon Dioxide 29 (22-32) mmol/L BUN 16 (9-20) mg/dL Creatinine 0.90 (0.66-1.25) mg/dL Estimated GFR > 60.0 (>60) mL/min BUN/Creatinine Ratio 17.8 (6-22) Glucose 111 H (80-110) mg/dL Calcium 9.0 (8.4-10.2) mg/dL Total Bilirubin 0.7 (0.2-1.3) mg/dL AST 27 (17-59) IU/L ALT 31 (21-72) IU/L Alkaline Phosphatase 62 (38-126) U/L Total Protein 6.8 (6.3-8.2) g/dL Albumin 3.9 (3.5-5.0) g/dL Globulin 2.9 (1.7-4.1) g/dL Albumin/Globulin Ratio 1.3 (1.0-2.8) Lipase 121 (23-300) U/L Blood Type B Negative Antibody Screen Negative Point of care testing: Urine Dip Bedside Urine Glucose Negative Bedside Urine Bilirubin - Negative Bedside Urine Ketone - Negative Urine Specific [place] 1.005 Bedside Urine Occult Blood - Negative Bedside Urine pH 8.5 Bedside Urine Protein - Negative Bedside Urine Urobilinogen - Negative Bedside Urine Nitrite - Negative Bedside Urine Leukocytes - Negative Esterase Imaging Data CTA : Radiologist's impression: [place] [address] CT Scan Report Signed Patient: Lora Cross#: [id number] : 4Acct:[id number] Age/Sex: 63 / MDate of Service: 05/27/18 Loc: ED Accession Number: [id number] Procedure: CT angio chest abdomen pelvis Ordering Provider: Emely Hernandez D.O. PROCEDURE: CT ANGIO CHEST ABDOMEN PELVIS INDICATIONS: abdominal pain, RLQ but radiates all around TECHNIQUE: Precontrast 5 mm thick sections acquired from the lung apices to the iliac crests. After the administration of intravenous contrast, 2.5 mm thick sections again acquired from the lung apices to the iliac crests. Maximum intensity projection (MIP) oblique sagittal and coronal reformats were then acquired. For radiation dose reduction, the following was used: automated exposure control. COMPARISON: [facility], CT, CT KUB, 02/05/2017, 9:27. FINDINGS: Image quality: Excellent. AORTA: Atherosclerotic changes are present. No dissection. CHEST: Lungs and pleura: Patchy areas of opacity are noted within the left lower lobe. No pleural effusions or pneumothorax. Central and peripheral airways are patent and normal in caliber. Mediastinum: Heart size is normal. No pericardial effusion. No mediastinal or hilar adenopathy by size criteria. Central pulmonary arteries are normal in size. Esophagus is dilated and fluid-filled. No hiatal hernias. Bones and chest wall: No axillary adenopathy by size criteria. Thyroid gland is unremarkable. No suspicious bony lesions. No vertebral body compression fractures. ABDOMEN: Vasculature: Celiac trunk and mesenteric arteries are patent. Renal arteries are also patent. Solid organs: Liver is enlarged with steatosis. Gallbladder is unremarkable. Biliary system is non dilated. Pancreas enhances normally. Spleen is normal in size and enhancement. No adrenal nodules. Both kidneys are normal in size and enhancement, without hydronephrosis. There is a 2 mm nonobstructing left midpole renal calcification. Peritoneum and bowel: No free fluid or air. Bowel loops demonstrate significant diverticula within the descending and sigmoid colon. There is marked sigmoid colonic thickening with surrounding pericolonic inflammatory change. There is a cluster of free air foci adjacent to the proximal sigmoid colon in the mesenteric fat. There is mild scattered free air identified within the nondependent portions of the abdomen and pelvis. No abscess is identified. Nodes and vessels: No retroperitoneal or mesenteric adenopathy by size criteria. Inferior vena cava is normal in morphology. Miscellaneous: Fat containing ventral hernia is present. PELVIS: Genitourinary: Bladder wall thickness is normal. Soft tissue density is noted along the posterior inferior bladder. The prostate gland is enlarged and heterogeneous in appearance. Punctate calcification is noted within the posterior mid right bladder lumen. Miscellaneous: No inguinal hernias or adenopathy. No ventral hernias. Bones: Punctate sclerosis is present within the right iliac bone likely bone island. No vertebral body compression fractures. IMPRESSION: 1. Sigmoid diverticulitis with area of perforation and free air as above. No abscess is identified. 2. Heterogeneous and enlarged appearance of the prostate gland with soft tissue appearing to be within the posterior inferior bladder. While this could represent prostate hypertrophy, recommend correlation with PSA levels, as prostate cancer cannot be excluded. It is relatively unchanged compared to 2017. 3. Small patchy area of opacity identified within the left base. This could represent atelectasis. 4. Nonobstructing left renal calculus. 5. Punctate calcification within the bladder lumen. 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 The above findings were discussed with Dr. Emely Hernandez on 05/27/18 at 11:40 AM. Dictated by: Marylu Manuel M.D. on 05/27/2018 at 11:09 Approved by: Marylu Manuel M.D. on 05/27/2018 at 11:47 MDM Narrative Medical decision making narrative: Patient's CTA shows a perforated diverticulum, patient's pain was much better controlled after pain medications. His lab work shows slight elevation in white count. He was started on Flagyl and Levaquin, Dr. Enriquez from general surgery was consulted and accepts for admission. Discharge Plan Departure Patient Disposition: Admitted As Inpatient Clinical Impression: Diverticulitis, Perforated diverticulum Discharge Date/Time: 05/27/18 12:38 Interventions: ED Discharge Assessment Last Done: 05/27/18 12:36 Admit Date/Time: 05/27/18 11:51 Admit Provider: Francisco Enriquez
--- NOTE | 2018-05-27 10:31 | ED_ITS ---
HPI - Abdominal Pain General Chief Complaint: Abdominal Pain Stated Complaint: ABDOMINAL PAIN Time Seen by Provider: 05/27/18 10:21 Source: patient and old records reviewed Limitations: no limitations History of Present Illness HPI narrative: This is a 63-year-old male who comes to the emergency department with abdominal pain. Patient states it is on the right side but also kind of extends towards the left. Patient states it started this morning about 5 or 6: 00 a.m. in the morning. It woke him up from sleep it has been initially intermittent waxing and waning in intensity but has become more constant and severe. Patient states it does not radiate to the testicles. He does not have any pain in his back. It is not changing location he has not had any diaphoresis or sweating. No fevers. He has felt nauseated at the maximum intensity of pain but had no vomiting. Had a normal bowel movement today without any black or blood. He also urinated at the same time this was at about an hour prior to arrival. Patient states that he did have difficulty with urination got transferred to [place] and had a catheter placed couple weeks ago. He was self catheterization arising until about 2 or 3 weeks ago. He has been able to urinate regularly was diagnosed with a urethral stricture. Patient states he has osteoarthritis but denies any other medical issues. He has not take any medications regularly. He states he had prostate surgery in the past. Related Data Home Medications Medication Instructions Recorded Confirmed Glucosamine Sulf-Chondroitin 1 tab PO DAILY 05/27/18 05/27/18 ascorbic acid (vitamin C) [Vitamin 2,000 mg PO DAILY 05/27/18 05/27/18 C] flaxseed oil 1 cap PO DAILY 05/27/18 05/27/18 magnesium 1 tab PO DAILY 05/27/18 05/27/18 multivitamin 1 tab PO DAILY 05/27/18 05/27/18 Allergies Allergy/AdvReac Type Severity Reaction Status Date / Time Penicillins Allergy Verified 05/27/18 11:22 Sulfa (Sulfonamide Allergy Verified 05/27/18 11:22 Antibiotics) Review of Systems Review of Systems All systems reviewed & are unremarkable except as noted in HPI and below Constitutional Denies anorexia, Denies excessive sweating, Denies fever(s) and Denies night sweats Cardiovascular Denies chest pain and Denies dyspnea Respiratory Denies dyspnea Gastrointestinal Gastrointestinal: Reports abdominal pain, Denies melena, Denies hematochezia, Denies change in bowel habits, Denies constipation, Denies diarrhea, Reports nausea and Denies vomiting Genitourinary Reports as per HPI, Denies hematuria, Reports difficulty urinating (was self cathing, normal for several weeks), Denies genital pain, Denies flank pain, Denies scrotal swelling, Denies testicular pain, Denies urinary frequency, Denies urinary incontinence and Denies urinary urgency Musculoskeletal Denies back pain Endocrine Denies excessive sweating [facility] Medical History BPH (benign prostatic hyperplasia) (Acute) HTN (hypertension) (Acute) Shingles (Acute) Surgical History H/O prostatectomy (Acute) Social History household members: none Smoking Status: Former smoker Exam Narrative Exam Narrative: GENERAL: Alert and oriented x three, well nourished, well appearing male in severe pain. Patient is moaning when I walk into the room but is able to stop it answer questions fairly easily. HEENT: Head normocephalic, atraumatic, EOMI, pupils reactive, face symmetric, moist mucous membranes NECK: Supple, full range of motion CARDIOVASCULAR: Regular rate and rhythm without murmurs, rubs or gallops. RESPIRATORY: Breath sounds equal bilaterally, no wheezes rales or rhonchi. ABDOMEN: Soft, positive for generalized tenderness but greatest at the right lower quadrant. Normoactive bowel sounds all 4 quadrants. No guarding or rebound, rigidity, no mass : No CVA tenderness bilaterally. EXTREMITIES: Normal range of motion, no clubbing or edema. Neurovascularly intact NEUROLOGICAL: Cranial nerves II through XII grossly intact. Moving all extremities SKIN: Warm, dry, no petechiae, no rashes or lesions. Initial Vital Signs Initial Vital Signs: Vital Signs Temperature 97.9 F 05/27/18 10:12 Pulse Rate 68 05/27/18 10:12 Respiratory Rate 20 05/27/18 10:12 Blood Pressure 136/98 H 05/27/18 10:12 Pulse Oximetry 97 05/27/18 10:12 Course Orders Ordered: ED Orders 05/27/18 10:30 Complete Blood Count AUTO DIFF Stat Comprehensive Metabolic Panel Stat Lipase Stat Type and Screen Stat 05/27/18 10:55 CT angio chest abdomen pelvis Stat 05/27/18 16:40 Wound Culture and Gram Stain Routine Fentanyl (Sublimaze) 50 mcg IV Q5MIN PRN PRN Reason: Pain, Moderate (4-6) Hydromorphone HCl (Dilaudid) 1 mg IV Q1HR PRN PRN Reason: Pain, Moderate (4-6) Hydromorphone HCl (Dilaudid) 0.5 mg IV Q5MIN PRN PRN Reason: Pain, Moderate (4-6) Last Admin: 05/27/18 18:28 Dose: 0.5 mg Admin: 05/27/18 18:19 Dose: 0.5 mg Sodium Chloride (Normal Saline 0.9%) 1,000 mls @ 250 mls/hr IV CONT DERRICK Last Infusion: 05/27/18 15:30 Dose: 0 mls/hr Infusion: 05/27/18 12:43 Dose: 250 mls/hr Admin: 05/27/18 12:18 Dose: 250 mls/hr Lactated Ringer's (Lactated Ringers) 1,000 mls @ 42 mls/hr IV CONT DERRICK Last Admin: 05/27/18 16:43 Dose: 42 mls/hr Infusion: 05/27/18 16:43 Dose: 42 mls/hr Admin: 05/27/18 16:06 Dose: 42 mls/hr Ketorolac Tromethamine (Toradol) 15 mg IV NOW PRN PRN Reason: Pain, Moderate (4-6) Meperidine HCl (Demerol) 25 mg IV Q5MIN PRN PRN Reason: Pain or shivering Ondansetron HCl (Zofran) 4 mg IV Q6HR PRN PRN Reason: Nausea And Vomiting Ondansetron HCl (Zofran) 4 mg IV NOW PRN PRN Reason: Nausea And Vomiting Discontinued Medications Sodium Chloride 1,000 ml/ (Bacitracin 50,000 unit) 0 ml IRR NOW ONE Stop: 05/27/18 16:53 Last Admin: 05/27/18 16:53 Dose: 3 irrig.soln Hydromorphone HCl (Dilaudid) 1 mg IV NOW ONE Stop: 05/27/18 11:15 Last Admin: 05/27/18 11:17 Dose: 1 mg Sodium Chloride (Normal Saline 0.9%) 1,000 mls @ 1,000 mls/hr IV BOLUS ONE Stop: 05/27/18 11:24 Last Infusion: 05/27/18 12:11 Dose: 0 mls/hr Admin: 05/27/18 11:03 Dose: 1,000 mls/hr Metronidazole (Flagyl) 500 mg in 100 mls @ 100 mls/hr IV NOW ONE Stop: 05/27/18 12:42 Last Infusion: 05/27/18 12:43 Dose: 100 mls/hr Admin: 05/27/18 11:59 Dose: 100 mls/hr Levofloxacin (Levaquin) 750 mg in 150 mls @ 100 mls/hr IV NOW ONE Stop: 05/27/18 13:12 Last Infusion: 05/27/18 12:42 Dose: 100 mls/hr Admin: 05/27/18 11:59 Dose: 100 mls/hr Ketorolac Tromethamine (Toradol) 30 mg IV NOW ONE Stop: 05/27/18 10:26 Last Admin: 05/27/18 11:03 Dose: 30 mg Ondansetron HCl (Zofran) 4 mg IV NOW ONE Stop: 05/27/18 10:26 Last Admin: 05/27/18 10:45 Dose: 4 mg Sodium Chloride (Normal Saline 0.9%) 250 ml IV NOW ONE Stop: 05/27/18 12:15 Last Admin: 05/27/18 12:19 Dose: Vital Signs - 8 hr 05/27/18 11:11 05/27/18 11:29 05/27/18 12:01 Temperature Pulse Rate 76 77 85 Respiratory Rate 20 20 18 Blood Pressure Blood Pressure [Right Arm] 129/59 L 139/52 L 154/82 H Pulse Oximetry 88 L 97 05/27/18 13:06 05/27/18 15:14 05/27/18 15:41 Temperature 98.5 F 98.1 F 101.5 F H Pulse Rate 91 H 90 92 H Respiratory Rate 20 19 16 Blood Pressure 157/79 H 131/72 139/72 Blood Pressure [Right Arm] Pulse Oximetry 95 95 95 05/27/18 17:55 05/27/18 18:00 05/27/18 18:05 Temperature 99.3 F Pulse Rate 82 78 86 Respiratory Rate 20 16 20 Blood Pressure 129/71 123/65 127/66 Blood Pressure [Right Arm] Pulse Oximetry 91 94 96 05/27/18 18:10 05/27/18 18:20 05/27/18 18:26 Temperature 99.2 F Pulse Rate 78 75 Respiratory Rate 12 Blood Pressure 125/64 118/83 Blood Pressure [Right Arm] Pulse Oximetry 94 93 05/27/18 18:36 05/27/18 18:47 Temperature Pulse Rate 73 Respiratory Rate 16 Blood Pressure 117/66 Blood Pressure [Right Arm] Pulse Oximetry 90 L 93 MDM - Abdominal Pain Lab Data Attestation: I reviewed the patient's lab results. Result diagrams: 05/27/18 10:30 05/27/18 10:30 Lab Results 05/27/18 05/27/18 05/27/18 Range/Units 10:30 10:30 10:30 WBC 13.7 H (4.5-11.0) X10^3/uL RBC 5.18 (4.5-5.9) X10^6/uL Hgb 15.4 (13.5-17.5) g/dL Hct 45.8 (41-53) % MCV 88.3 (80-100) fL MCH 29.8 (26-34) PG MCHC 33.7 (30-36) % RDW 13.8 (11.6-14.8) % Plt Count 255 (150-400) X10^3/uL Neut % (Auto) 78.1 H (50-75) % Lymph % (Auto) 13.7 L (25-40) % [place] % (Auto) 6.8 (3-14) % Eos % (Auto) 0.9 L (2-4) % Baso % (Auto) 0.5 (0-2) % Neut # (Auto) 45374 H (1664-2885) /uL Sodium 140 (137-145) mmol/L Potassium 3.8 (3.4-5.1) mmol/L Chloride 101 (98-107) mmol/L Carbon Dioxide 29 (22-32) mmol/L BUN 16 (9-20) mg/dL Creatinine 0.90 (0.66-1.25) mg/dL Estimated GFR > 60.0 (>60) mL/min BUN/Creatinine Ratio 17.8 (6-22) Glucose 111 H (80-110) mg/dL Calcium 9.0 (8.4-10.2) mg/dL Total Bilirubin 0.7 (0.2-1.3) mg/dL AST 27 (17-59) IU/L ALT 31 (21-72) IU/L Alkaline Phosphatase 62 (38-126) U/L Total Protein 6.8 (6.3-8.2) g/dL Albumin 3.9 (3.5-5.0) g/dL Globulin 2.9 (1.7-4.1) g/dL Albumin/Globulin Ratio 1.3 (1.0-2.8) Lipase 121 (23-300) U/L Blood Type B Negative Antibody Screen Negative Point of care testing: Urine Dip Bedside Urine Glucose Negative Bedside Urine Bilirubin - Negative Bedside Urine Ketone - Negative Urine Specific [place] 1.005 Bedside Urine Occult Blood - Negative Bedside Urine pH 8.5 Bedside Urine Protein - Negative Bedside Urine Urobilinogen - Negative Bedside Urine Nitrite - Negative Bedside Urine Leukocytes - Negative Esterase Imaging Data CTA : Radiologist's impression: [place] [address] CT Scan Report Signed Patient: Lora Cross#: [id number] : 4Acct:[id number] Age/Sex: 63 / MDate of Service: 05/27/18 Loc: ED Accession Number: [id number] Procedure: CT angio chest abdomen pelvis Ordering Provider: Emely Hernandez D.O. PROCEDURE: CT ANGIO CHEST ABDOMEN PELVIS INDICATIONS: abdominal pain, RLQ but radiates all around TECHNIQUE: Precontrast 5 mm thick sections acquired from the lung apices to the iliac crests. After the administration of intravenous contrast, 2.5 mm thick sections again acquired from the lung apices to the iliac crests. Maximum intensity projection (MIP) oblique sagittal and coronal reformats were then acquired. For radiation dose reduction, the following was used: automated exposure control. COMPARISON: [facility], CT, CT KUB, 02/05/2017, 9:27. FINDINGS: Image quality: Excellent. AORTA: Atherosclerotic changes are present. No dissection. CHEST: Lungs and pleura: Patchy areas of opacity are noted within the left lower lobe. No pleural effusions or pneumothorax. Central and peripheral airways are patent and normal in caliber. Mediastinum: Heart size is normal. No pericardial effusion. No mediastinal or hilar adenopathy by size criteria. Central pulmonary arteries are normal in size. Esophagus is dilated and fluid-filled. No hiatal hernias. Bones and chest wall: No axillary adenopathy by size criteria. Thyroid gland is unremarkable. No suspicious bony lesions. No vertebral body compression fractures. ABDOMEN: Vasculature: Celiac trunk and mesenteric arteries are patent. Renal arteries are also patent. Solid organs: Liver is enlarged with steatosis. Gallbladder is unremarkable. Biliary system is non dilated. Pancreas enhances normally. Spleen is normal in size and enhancement. No adrenal nodules. Both kidneys are normal in size and enhancement, without hydronephrosis. There is a 2 mm nonobstructing left midpole renal calcification. Peritoneum and bowel: No free fluid or air. Bowel loops demonstrate significant diverticula within the descending and sigmoid colon. There is marked sigmoid colonic thickening with surrounding pericolonic inflammatory change. There is a cluster of free air foci adjacent to the proximal sigmoid colon in the mesenteric fat. There is mild scattered free air identified within the nondependent portions of the abdomen and pelvis. No abscess is identified. Nodes and vessels: No retroperitoneal or mesenteric adenopathy by size criteria. Inferior vena cava is normal in morphology. Miscellaneous: Fat containing ventral hernia is present. PELVIS: Genitourinary: Bladder wall thickness is normal. Soft tissue density is noted along the posterior inferior bladder. The prostate gland is enlarged and heterogeneous in appearance. Punctate calcification is noted within the posterior mid right bladder lumen. Miscellaneous: No inguinal hernias or adenopathy. No ventral hernias. Bones: Punctate sclerosis is present within the right iliac bone likely bone island. No vertebral body compression fractures. IMPRESSION: 1. Sigmoid diverticulitis with area of perforation and free air as above. No abscess is identified. 2. Heterogeneous and enlarged appearance of the prostate gland with soft tissue appearing to be within the posterior inferior bladder. While this could represent prostate hypertrophy, recommend correlation with PSA levels, as prostate cancer cannot be excluded. It is relatively unchanged compared to 2017. 3. Small patchy area of opacity identified within the left base. This could represent atelectasis. 4. Nonobstructing left renal calculus. 5. Punctate calcification within the bladder lumen. This could be telemarketing sales representative of a recently passed stone. The above findings were discussed with Dr. Emely Hernandez on 05/27/18 at 11:40 AM. Dictated by: Marylu Manuel M.D. on 05/27/2018 at 11:09 Approved by: Marylu Manuel M.D. on 05/27/2018 at 11:47 MDM Narrative Medical decision making narrative: Patient's CTA shows a perforated diverticulum , patient's pain was much better controlled after pain medications. His lab work shows slight elevation in white count. He was started on Flagyl and Levaquin, Dr. Enriquez from general surgery was consulted and accepts for admission. Discharge Plan Departure Patient Disposition: Admitted As Inpatient Clinical Impression: Diverticulitis, Perforated diverticulum Discharge Date/Time: 05/27/18 12:38 Interventions: ED Discharge Assessment Last Done: 05/27/18 12:36 Admit Date/Time: 05/27/18 11:51 Admit Provider: Francisco Enriquez
[2018-05-27] MEDS: ONDANSETRON 4 MG/2 ML INJ IV (10:45)
[2018-05-27 10:46] LABS: Add Manual Diff / Slide Review NO; Basophils Percent Auto 0.5 % (0-2); Eosinophils Percent Auto 0.9 % (2-4); Hematocrit 45.8 % (41-53); Hemoglobin 15.4 g/dL (13.5-17.5); Lymphocytes Percent Auto 13.7 % (25-40); Mean Corpuscular HGB Conc 33.7 % (30-36); Mean Corpuscular Hemoglobin 29.8 PG (26-34); Mean Corpuscular Volume 88.3 fL (80-100); Monocytes Percent Auto 6.8 % (3-14); Neutrophils Absolute Auto 10700 /uL (3000-5900); Neutrophils Percent Auto 78.1 % (50-75); Platelet Count 255 X10^3/uL (150-400); Red Blood Cell Count 5.18 X10^6/uL (4.5-5.9); Red Cell Distribution Width 13.8 % (11.6-14.8); White Blood Cell Count 13.7 X10^3/uL (4.5-11.0)
--- NOTE | 2018-05-27 10:55 | DI.CT.S_ITS ---
PROCEDURE: CT ANGIO CHEST ABDOMEN PELVIS INDICATIONS: abdominal pain, RLQ but radiates all around TECHNIQUE: Precontrast 5 mm thick sections acquired from the lung apices to the iliac crests. After the administration of intravenous contrast, 2.5 mm thick sections again acquired from the lung apices to the iliac crests. Maximum intensity projection (MIP) oblique sagittal and coronal reformats were then acquired. For radiation dose reduction, the following was used: automated exposure control. COMPARISON: [facility], CT, CT KUB, 02/05/2017, 9:27. FINDINGS: Image quality: Excellent. AORTA: Atherosclerotic changes are present. No dissection. CHEST: Lungs and pleura: Patchy areas of opacity are noted within the left lower lobe. No pleural effusions or pneumothorax. Central and peripheral airways are patent and normal in caliber. Mediastinum: Heart size is normal. No pericardial effusion. No mediastinal or hilar adenopathy by size criteria. Central pulmonary arteries are normal in size. Esophagus is dilated and fluid-filled. No hiatal hernias. Bones and chest wall: No axillary adenopathy by size criteria. Thyroid gland is unremarkable. No suspicious bony lesions. No vertebral body compression fractures. ABDOMEN: Vasculature: Celiac trunk and mesenteric arteries are patent. Renal arteries are also patent. Solid organs: Liver is enlarged with steatosis. Gallbladder is unremarkable. Biliary system is non dilated. Pancreas enhances normally. Spleen is normal in size and enhancement. No adrenal nodules. Both kidneys are normal in size and enhancement, without hydronephrosis. There is a 2 mm nonobstructing left midpole renal calcification. Peritoneum and bowel: No free fluid or air. Bowel loops demonstrate significant diverticula within the descending and sigmoid colon. There is marked sigmoid colonic thickening with surrounding pericolonic inflammatory change. There is a cluster of free air foci adjacent to the proximal sigmoid colon in the mesenteric fat. There is mild scattered free air identified within the nondependent portions of the abdomen and pelvis. No abscess is identified. Nodes and vessels: No retroperitoneal or mesenteric adenopathy by size criteria. Inferior vena cava is normal in morphology. Miscellaneous: Fat containing ventral hernia is present. PELVIS: Genitourinary: Bladder wall thickness is normal. Soft tissue density is noted along the posterior inferior bladder. The prostate gland is enlarged and heterogeneous in appearance. Punctate calcification is noted within the posterior mid right bladder lumen. Miscellaneous: No inguinal hernias or adenopathy. No ventral hernias. Bones: Punctate sclerosis is present within the right iliac bone likely bone island. No vertebral body compression fractures. IMPRESSION: 1. Sigmoid diverticulitis with area of perforation and free air as above. No abscess is identified. 2. Heterogeneous and enlarged appearance of the prostate gland with soft tissue appearing to be within the posterior inferior bladder. While this could represent prostate hypertrophy, recommend correlation with PSA levels, as prostate cancer cannot be excluded. It is relatively unchanged compared to 2017. 3. Small patchy area of opacity identified within the left base. This could represent atelectasis. 4. Nonobstructing left renal calculus. 5. Punctate calcification within the bladder lumen. This could be high school admissions representative of a recently passed stone. The above findings were discussed with Dr. Emely Hernandez on 05/27/18 at 11:40 AM. Dictated by: Marylu Manuel M.D. on 05/27/2018 at 11:09 Approved by: Marylu Manuel M.D. on 05/27/2018 at 11:47
[2018-05-27 10:59] LABS: Alanine Aminotransferase 31 IU/L (21-72); Albumin 3.9 g/dL (3.5-5.0); Albumin Globulin Ratio 1.3 (1.0-2.8); Alkaline Phosphatase 62 U/L (38-126); Aspartate Aminotransferase 27 IU/L (17-59); BUN Creatinine Ratio 17.8 (6-22); Bilirubin Total 0.7 mg/dL (0.2-1.3); Blood Urea Nitrogen 16 mg/dL (9-20); Carbon Dioxide 29 mmol/L (22-32); Chloride 101 mmol/L (98-107); Estimated Glomerular Filt Rate > 60.0 mL/min (>60); Globulin 2.9 g/dL (1.7-4.1); Glucose 111 mg/dL (80-110); HEMOLYSIS < 15 (0-50); Lipase 121 U/L (23-300); Potassium 3.8 mmol/L (3.4-5.1); Sodium 140 mmol/L (137-145); Total Protein 6.8 g/dL (6.3-8.2)
[2018-05-27] MEDS: KETOROLAC 60 MG/2 ML VIAL 30 MG IV (11:03)
[2018-05-27] MEDS: SODIUM CHLORIDE 0.9% 1,000 ML 1000 ML IV (11:03)
--- NOTE | 2018-05-27 11:09 | PC.NURSE ---
pt reporting intermittent self cath, every 3 or 4 days, able to urinate.
--- NOTE | 2018-05-27 11:11 | PC.NURSE ---
restless and groaning, toradol without relief.
[2018-05-27] MEDS: HYDROMORPHONE 1 MG INJ IV (11:17)
--- NOTE | 2018-05-27 11:21 | PC.NURSE ---
cool to touch, but dry, pink.
[2018-05-27] MEDS: metroNIDAZOLE 500 MG/100 ML PIGGYBACK 100 MG IV (11:59)
[2018-05-27] MEDS: levoFLOXacin 750 MG/150 ML PIGGYBACK 100 MG IV (11:59)
--- NOTE | 2018-05-27 12:01 | PC.NURSE ---
last solid meal at 815 today,has voided and bm this morning.
--- NOTE | 2018-05-27 12:15 | PC.NURSE ---
Day shift: Pt not on this unit at this time.
[2018-05-27] MEDS: SODIUM CHLORIDE 0.9% 1,000 ML 250 ML IV (12:18)
--- NOTE | 2018-05-27 13:00 | PC.NURSE ---
Day shift: Pt on unit at approx 1300. Oriented to room and call light.
--- NOTE | 2018-05-27 15:19 | HP_ITS ---
DATE OF SERVICE: 05/27/2018 Patient is 63 years old, comes to the emergency room after developing sudden onset of generalized and lower abdominal pain. This morning, the pain actually woke him out of a deep sleep, and he's not had similar episodes in the past. He came to the emergency room where he had a CTA done actually looking for the possibility of a ruptured abdominal aortic aneurysm. This was not seen, but what is seen is severe sigmoid diverticulitis with free air and evidence of diverticulitis complicated by colonic perforation. Patient's received IV antibiotics in the form of Flagyl and Levaquin and is being prepared for surgery. I've explained to the patient that this perforation with free air and generalized peritonitis requires removing that segment of sigmoid colon and then creating a temporary colostomy. He understands and agrees to the procedure. His white count is 13.7. Other labs remain unremarkable. Hemoglobin 15.4. PAST MEDICAL HISTORY: He's had a prostatectomy. He does self-catheterizations about every third day. He's also had a history of a urethral stricture. Denies diabetes, heart disease, or hypertension. ALLERGIES: IS ALLERGIC TO PENICILLIN AND SULFA. HOME MEDICATIONS: Vitamin C, flaxseed oil, chondroitin. REVIEW OF SYSTEMS: System review is negative or chest pain, unusual shortness of breath. GI is as in HPI. as mentioned in the past history. Neurologic: No strokes. No seizures. PHYSICAL EXAMINATION: VITAL SIGNS: Temperature 98.5, blood pressure 157/80, heart rate in the 90s. HEENT: Ears, nose, and throat are normal. NECK: No adenopathy. CHEST: Lungs are clear. HEART: Regular rhythm. No murmur. ABDOMEN: He's moderately distended and has severe, all 4-quadrant tenderness with guarding. Rebound tenderness in the lower abdomen. Both right and left lower quadrants are quite tender, indicative of generalized peritonitis and pelvic peritonitis. ASSESSMENT: Perforated sigmoid diverticulitis. PLAN: Laparotomy, sigmoid resection, colostomy Abrahan procedure. Maximino Cross - Sarah/ doc#: [id number]/job#: [id number] dd: 05/27/2018 14:16:00 dt: 05/27/2018 15:03:00 DICTATING MD/COPIES TO: Francisco Enriquez MD COPIES MNE: MIGUEL
[2018-05-27] MEDS: LACTATED RINGERS 1,000 ML 42 ML IV ×2 (16:06→16:43)
--- NOTE | 2018-05-27 16:17 | PC.NURSE ---
Addendum entered by Lorraine Vazquez R.N. 05/27/18 19:49: Pt arrived to floor at 1850- kimball patent, pt sleepy but arouses to voice. Pt RETAIL SALES CLERK set up. Pt fluids started. stoma oblong, some bloody drainage to lower part. minimal bloody drainage to pouch. Pt educated about RETAIL SALES CLERK but needs reminding to use pain pump. Pt given some ice chips and tolerating well. called two friends and updated them per PT request. added to his list. frequent checks performed. will continue to monitor. Original Note: 1500- assumed care of pt. bedside report completed. 1530- surgery team here to take pt down. watch removed and put in room. belongings left in room. underwear removed. tele removed and left in room.
[2018-05-27] MEDS: SODIUM CHLORIDE IRRIG SOLUTION 1,000 ML, BACITRACIN 50,000 UNIT IRR (16:53)
--- NOTE | 2018-05-27 16:57 | SUR.OPER ---
Supine on padded OR bed, head on pillow, arms secured on padded arm boards at <90 degrees abduction, legs uncrossed, safety belt at thigh, tape over blanket over lower legs.
--- NOTE | 2018-05-27 18:15 | SUR.PHASEI ---
Dr. Hooks shown JENNIFER drain, full, no new orders.
[2018-05-27] MEDS: HYDROMORPHONE 2 MG INJ 0.5 MG IV ×2 (18:19→18:28)
--- NOTE | 2018-05-27 18:33 | SUR.PHASEI ---
Pt reported sharp, rt side chest pain with deep breath. Anterior lobes clear. VS stable. Dr. Alonso notified, pt status discussed. no new orders.
--- NOTE | 2018-05-27 18:37 | SUR.PHASEI ---
Pt reported pain improving. Tolerated a sip of water.
--- NOTE | 2018-05-27 18:47 | SUR.PHASEI ---
Report called to Caryn
--- NOTE | 2018-05-27 19:11 | SUR.PHASEI ---
Pt transferred to the floor, with 2l o2. VS stable. O2 sat 93% 2lnc. ABD drsg CDI. JENNIFER patent, draining sang fluid. Colostomy bag empty, stoma dark pink. small amt of bloody drainage to stoma. Moe patent. IV saline locked. Report given to Noris.
[2018-05-27] MEDS: DEXTROSE 5%-0.45% NS 1,000 ML 100 ML IV (19:27)
[2018-05-27 20:32] LABS: Add Manual Diff / Slide Review NO; Basophils Percent Auto 0.1 % (0-2); Hematocrit 41.2 % (41-53); Hemoglobin 13.6 g/dL (13.5-17.5); Mean Corpuscular HGB Conc 33.1 % (30-36); Mean Corpuscular Hemoglobin 29.5 PG (26-34); Monocytes Percent Auto 4.3 % (3-14); Neutrophils Absolute Auto 12700 /uL (3000-5900); Neutrophils Percent Auto 93.6 % (50-75); Platelet Count 219 X10^3/uL (150-400); Red Blood Cell Count 4.63 X10^6/uL (4.5-5.9); Red Cell Distribution Width 14.1 % (11.6-14.8); White Blood Cell Count 13.6 X10^3/uL (4.5-11.0)
[2018-05-27 20:47] LABS: Blood Urea Nitrogen 14 mg/dL (9-20); Calcium 7.9 mg/dL (8.4-10.2); Carbon Dioxide 25 mmol/L (22-32); Chloride 103 mmol/L (98-107); Estimated Glomerular Filt Rate > 60.0 mL/min (>60); Glucose 165 mg/dL (80-110); HEMOLYSIS < 15 (0-50); Potassium 3.9 mmol/L (3.4-5.1); Sodium 136 mmol/L (137-145)
[2018-05-27] MEDS: HYDROMORPHONE PCA 6 MG/30 ML PCA.VIAL IV (22:29)
--- NOTE | 2018-05-27 22:37 | PC.NURSE ---
Pt arrived to floor at 1900 from PACU- pt very sleepy but arouses to voice. oriented x4. bed alarm on. pt repositioned. will continue to monitor.
[2018-05-28] VITALS (9 sets, daily range): BP systolic 121–151; BP diastolic 67–88; PULSE 61–69; RESP 16–18; TEMP 36.3–36.9; O2SAT 91–96; BMI 28.7
--- NOTE | 2018-05-28 03:29 | OP_ITS ---
DATE OF SERVICE: 05/27/2018 PREOP DIAGNOSIS: Perforated sigmoid diverticulitis with peritonitis. POSTOP DIAGNOSIS: Perforated sigmoid diverticulitis with peritonitis, with severe generalized peritonitis in an abdomen just filled with pus. OPERATION: Exploratory laparotomy, sigmoid resection, creation of a descending colostomy (also known as a Abrahan procedure). SURGEON: Francisco Enriquez MD ANESTHESIA: General endotracheal. DESCRIPTION OF PROCEDURE: The patient was properly identified during surgical pause. Prepped and draped in a sterile fashion under general endotracheal anesthesia. A midline incision was made, up to the right of the umbilicus. The abdomen explored. Upon opening the peritoneal cavity, a copious amount of pus, purulent fluid, exuded. This was cultured for aerobes and anaerobes. The source was a perforated sigmoid diverticulitis. The sigmoid colon was mobilized along the left white line of Toldt, the rectosigmoid junction divided with a GIANFRANCO stapler, sealing the rectum. The descending colon/sigmoid junction was divided with a GIANFRANCO stapler, then the mesocolon was divided between clamps, ligating the vessels with 2-0 Vicryl. There was excellent hemostasis. Upon removing the perforated segment of sigmoid colon, which contained numerous diverticula and inflammatory changes, I irrigated the abdominal cavity with 4 L of bacitracin/saline and aspirated it dry. There was no further purulence or bleeding. I inspected the pedicles. There was no bleeding. I excised a table mountain of skin, left lower quadrant, and made a cruciate incision in the rectus fascia, and brought out the descending colon through that incision to be later matured as a descending colostomy. I placed a 10-mm Chacorta drain in the pelvis through right lower quadrant stab wound, sutured the drain to the skin with fine nylon. Midline fascia closed with #1 Vicryl. The subcu irrigated with bacitracin/saline, and closed with fine Vicryl. Skin stapled. Next, the colostomy was matured using interrupted 3-0 Vicryl sutures. The colostomy was healthy in appearance and the patient tolerated his procedure very well. America Maximino - Sarah/melly doc#: [id number]/job#: [id number] dd: 05/27/2018 18:04:00 dt: 05/28/2018 03:17:00 DICTATING MD/COPIES TO: Francisco Enriquez MD COPIES MNE: MIGUEL
[2018-05-28] MEDS: HYDROMORPHONE PCA 6 MG/30 ML PCA.VIAL IV ×3 (05:36→21:59)
[2018-05-28] MEDS: DEXTROSE 5%-0.45% NS 1,000 ML 100 ML IV ×2 (05:40→16:49)
--- NOTE | 2018-05-28 06:46 | PC.NURSE ---
Pt is very pleasant AxOx3, on 2L NC during the night with continuous pulse ox on and did well. Placed on room air this AM saturating at 97%. Vitals stable. Patient ate some ice chips overnight and then some vanilla pudding this morning and an ice pop. No nausea, tolerated well. Colostomy with no output yet, very small amount of blood drainage in bag. Stoma is beefy red. JENNIFER drain with 30mL sanguinous blood. Moe with 350mL clear yellow urine. Bilateral SCDs on throughout the night. D5-1/2NS@100mL/hr as ordered. Jyoti to abdomen in place, gauze underneath the secondary dressing has some bloody drainage. Information on colostomys and diverticulitis given to patient. He has a lot of questions about new situation and is eager to learn. Appears a bit sad and stated he doesn't have any family around to help, only co-workers. Emotional support given. Patient will need some help with body image as well. Overall seems to be dealing with it as best as he can at this point.
[2018-05-28] MEDS: ENOXAPARIN 40 MG/0.4 ML SYRINGE SUBCUT (08:15)
--- NOTE | 2018-05-28 12:40 | CM.DANOTE ---
DCP/Assessment: Reviewed chart. Patient admitted to [facility] abdominal pain. Patient is a 63yr old male. Primary payor is 1)[employer]. PCP is Mike/Nahum. Met with patient explained CM/SW role. Patient alert and oriented at time of visit. Patient underwent temporary colostomy with Dr. Enriquez on 05-27-18. Patient reports that he resides on his boat in [place]. Pateint primarily I with all ADL's. Patient indicates that he will not be returning to his boat at time of d/c rather he will be going to a friend's residence in [place]. Patient's friend out of town and offered his residence for patient to recover. Patient does have friends in area that can assist as needed. Anticipate that patient will benefit from PT/OT evaluations when appropriate. Patient also will most likely need to be seen by Lisa Cordero/wound care for generalized teaching and supply recommendations for temp colostomy. Per patient current plan is reversal in 2 months. Notified patient that CM team would follow closely. Patient agreeable. P: Anticipate home. Will possibly need HH for colostomy care/supplies and teaching. DARIA Grant Discharge Planning/Care Management CM Discharge Assessment Start: 05/28/18 12:34 Freq: Status: Active Protocol: Document 05/28/18 12:34 KJS (Rec: 05/28/18 12:40 KJS [id number]) Discharge Planning Assessment Assigned International Logistics Manager DARIA Grant Contact Information Gretchen Currie (sister) and [phone] Advance Directives? No History Provided By Patient Has Patient been admitted in last 30 No days? Prior Living Arrangements Apartment/Condo Household Members none Type of transporation used prior to Drives own vehicle admit Independent with ADL's Yes Is patient alert and oriented? Yes Caregiver for Another No Comment Pending hospitalization. Barriers to Discharge No Discharge Plan Home Transportation Arrangement Friends Additional Comment Unclear at time of d/c. Most likely will need HH for colostomy teaching/supplies. Whiteboard Updated in Patient Room with Yes name and ext. # of International Logistics Manager Review Status In Process Please Provide Date Initial DC 05/28/18 Assessment Was Performed Next Review Type Continued Stay Review
--- NOTE | 2018-05-28 13:17 | PM.PN.1 ---
Subjective Date Patient Seen: 05/28/18 Time Patient Seen: 13:17 Interval history: Patient states that pain is controlled with the BACK TENDER FOURDRINIER. No nausea or vomiting. Tolerating a few bites of liquids. Has multiple questions regarding the nature of his operative findings, disease process, colostomy, and recovery. Denies fever or chills. No chest pain or shortness of breath. Exam Vital Signs (past 8 hours): - 05/28/18 07:00 05/28/18 09:07 05/28/18 10:32 Temperature 97.6 F Pulse Rate 63 Respiratory Rate 16 Blood Pressure 121/68 Pulse Oximetry 91 94 92 05/28/18 11:00 Temperature 97.3 F L Pulse Rate 61 Respiratory Rate 16 Blood Pressure 129/75 Pulse Oximetry 93 Fraction of Inspired Oxygen 21 Oxygen Delivery Method Room Air Oxygen Flow Rate 0 Narrative Exam Narrative: Well-nourished well-developed male lying comfortably in bed in no acute distress. Alert oriented x3. Sclera nonicteric. Pupils are mildly pinpoint due to opioid requirements. Chest clear to auscultation bilaterally with regular rate rhythm. No crackles or wheezes. No murmurs. Abdomen is quiet but minimally distended. Soft. Appropriately tender. No guarding or rebound. Dressing is clean, dry, and intact. Ostomy is pink and viable with no output in the appliance as yet. Moe catheter remains in place draining clear urine. Extremities show no clubbing, cyanosis, or edema Objective Labs Result Diagrams: 05/27/18 20:27 05/27/18 20:27 Labs: Laboratory Results - last 24 hr 05/27/18 05/27/18 20:27 20:27 WBC 13.6 H RBC 4.63 Hgb 13.6 Hct 41.2 MCV 89.0 MCH 29.5 MCHC 33.1 RDW 14.1 Plt Count 219 Neut % (Auto) 93.6 H Lymph % (Auto) 2.0 L Harnett % (Auto) 4.3 Eos % (Auto) 0.0 L Baso % (Auto) 0.1 Neut # (Auto) 64110 H Sodium 136 L Potassium 3.9 Chloride 103 Carbon Dioxide 25 BUN 14 Creatinine 0.70 Estimated GFR > 60.0 BUN/Creatinine Ratio 20.0 Glucose 165 H Calcium 7.9 L Assessment & Plan Plan: Assessment/Plan Narrative: 63-year-old male postoperative day 1 from emergency laparotomy with partial colectomy and colostomy formation due to perforated diverticulitis who is otherwise stable. Continue intravenous antibiotics. Remove Moe as he begins to ambulate more aggressively. Out of bed today with assistance. Continue liquid diet for now but do not advance until he has colostomy output. Consult enterostomal therapy for education and appliance management. I answered all of his questions to the best of my ability. He was satisfied with the answers at this time. We discussed tentative anticipated recovery and healing times. Orders were written. Quality VTE Deep Vein Thrombosis/Pulmonary Embolism Present on Admission: No
--- NOTE | 2018-05-28 13:20 | P.PN_ITS ---
Subjective Date Patient Seen: 05/28/18 Time Patient Seen: 13:17 Interval history: Patient states that pain is controlled with the CURTAIN HEMMER AUTOMATIC. No nausea or vomiting. Tolerating a few bites of liquids. Has multiple questions regarding the nature of his operative findings, disease process, colostomy, and recovery. Denies fever or chills. No chest pain or shortness of breath. Exam Vital Signs (past 8 hours): - 05/28/18 07:00 05/28/18 09:07 05/28/18 10:32 Temperature 97.6 F Pulse Rate 63 Respiratory Rate 16 Blood Pressure 121/68 Pulse Oximetry 91 94 92 05/28/18 11:00 Temperature 97.3 F L Pulse Rate 61 Respiratory Rate 16 Blood Pressure 129/75 Pulse Oximetry 93 Fraction of Inspired Oxygen 21 Oxygen Delivery Method Room Air Oxygen Flow Rate 0 Narrative Exam Narrative: Well-nourished well-developed male lying comfortably in bed in no acute distress. Alert oriented x3. Sclera nonicteric. Pupils are mildly pinpoint due to opioid requirements. Chest clear to auscultation bilaterally with regular rate rhythm. No crackles or wheezes. No murmurs. Abdomen is quiet but minimally distended. Soft. Appropriately tender. No guarding or rebound. Dressing is clean, dry, and intact. Ostomy is pink and viable with no output in the appliance as yet. Moe catheter remains in place draining clear urine. Extremities show no clubbing, cyanosis, or edema Objective Labs Result Diagrams: 05/27/18 20:27 05/27/18 20:27 Labs: Laboratory Results - last 24 hr 05/27/18 05/27/18 20:27 20:27 WBC 13.6 H RBC 4.63 Hgb 13.6 Hct 41.2 MCV 89.0 MCH 29.5 MCHC 33.1 RDW 14.1 Plt Count 219 Neut % (Auto) 93.6 H Lymph % (Auto) 2.0 L [facility]lor % (Auto) 4.3 Eos % (Auto) 0.0 L Baso % (Auto) 0.1 Neut # (Auto) 52687 H Sodium 136 L Potassium 3.9 Chloride 103 Carbon Dioxide 25 BUN 14 Creatinine 0.70 Estimated GFR > 60.0 BUN/Creatinine Ratio 20.0 Glucose 165 H Calcium 7.9 L Assessment & Plan Plan: Assessment/Plan Narrative: 63-year-old male postoperative day 1 from emergency laparotomy with partial colectomy and colostomy formation due to perforated diverticulitis who is otherwise stable. Continue intravenous antibiotics. Remove Moe as he begins to ambulate more aggressively. Out of bed today with assistance. Continue liquid diet for now but do not advance until he has colostomy output. Consult enterostomal therapy for education and appliance management. I answered all of his questions to the best of my ability. He was satisfied with the answers at this time. We discussed tentative anticipated recovery and healing times. Orders were written. Quality VTE Deep Vein Thrombosis/Pulmonary Embolism Present on Admission: No
[2018-05-28] MEDS: CIPROFLOXACIN 400 MG/200 ML PIGGYBACK 200 MG IV (14:53)
[2018-05-28] MEDS: metroNIDAZOLE 500 MG/100 ML PIGGYBACK 100 MG IV ×2 (16:50→22:01)
--- NOTE | 2018-05-28 17:26 | PC.NURSE ---
evening shift- assumed care of pt from outgoing shift. pt eager to get up and sit in chair. pt has music on and listening to over bluetooth speaker. pt has some friends come and visit him. pt did well getting up stability ledbetter but had high pain levels with movement. project assistant changed to continuous/project assistant as ordered. pt seems to be doing better with this. pt belched a ton with movement, stated he felt ok. felt like his stomach had been decompressed a bit.l madison dressing intact. secondary dressing to abdomen is c.d.i. reinforced, first dressing 9touching skin0 has petroleum gauze with a 4x4 gauze on top- 4x4 has some dried blood drainage. no smell. pt did take a look at his ostomy. and stated wow, well i guess that there now eh?, pt seems to be doing well with adjusting. discussed splinting with pt and coughing and deep breathing exercised, pt compliant. pt has had phone calls. discussed dinner and eating with pt and he stated he didn't feel light solid food yet, and was happy with dinner tray and soup. pt given call enriquez, instructed not to get up without assistance and pt compliant and verbalized understanding. pt cooperative and compliant. will continue to monitor pt for safety.
[2018-05-29] VITALS (10 sets, daily range): BP systolic 142–155; BP diastolic 69–109; PULSE 67–81; RESP 16–18; TEMP 36.6–37.1; O2SAT 91–98
[2018-05-29] MEDS: CIPROFLOXACIN 400 MG/200 ML PIGGYBACK 200 MG IV ×2 (02:35→14:23)
[2018-05-29] MEDS: DEXTROSE 5%-0.45% NS 1,000 ML 100 ML IV ×3 (02:36→21:53)
[2018-05-29] MEDS: metroNIDAZOLE 500 MG/100 ML PIGGYBACK 100 MG IV ×4 (04:48→21:54)
[2018-05-29] MEDS: HYDROMORPHONE PCA 6 MG/30 ML PCA.VIAL IV ×3 (04:59→21:56)
--- NOTE | 2018-05-29 08:20 | PC.NURSE ---
Patient reports increased sharp pain through right upper chest, stating feels like a bolt going through my chest when I take a deep breath. Patient unable to take a deep breath, 02 saturation 91-92% on RA. Dr. Ansari notified and CT angio of chest ordered STAT. Will continue to follow.
[2018-05-29] MEDS: ENOXAPARIN 40 MG/0.4 ML SYRINGE SUBCUT (08:56)
--- NOTE | 2018-05-29 09:00 | DI.CT.S_ITS ---
PROCEDURE: CT ANGIO CHEST INDICATIONS: Right upper chest pain TECHNIQUE: After the administration of intravenous contrast, 2 mm thick sections acquired from the pulmonary apices to the posterior costophrenic angles. 3-dimensional maximum intensity projection (MIP) coronal and sagittal reformats were then acquired through the thorax. For radiation dose reduction, the following was used: automated exposure control, adjustment of mA and/or kV according to patient size. COMPARISON: [facility], CT, CT ANGIO CHEST ABDOMEN PELVIS, 05/27/2018, 10:36. [facility], CR, XR CHEST 1V, 03/10/2018, 19:28. FINDINGS: Image quality: Excellent. Pulmonary arteries: Pulmonary arteries are normal in size, and demonstrate no intraluminal filling defects to suggest central pulmonary embolism. Lungs and pleura: A small pneumothorax is present on the right side involving both the right base and right apex medially. There are small pleural effusions and bibasilar atelectasis. Central and peripheral airways are patent. Mediastinum: There is moderate pneumomediastinum with air collections dissecting into the lower neck. A cause for pneumomediastinum is not definitively identified. Heart size is normal, without pericardial effusion. No mediastinal or hilar adenopathy. Thoracic aorta is normal in caliber and enhancement. Esophagus is normal in caliber, without hiatal hernia. Bones and chest wall: No suspicious bony lesions. Ribs and thoracic spine appear intact throughout. Thyroid gland is normal. No axillary or supraclavicular adenopathy. Abdomen: There is pneumoperitoneum. Visualized upper abdominal solid organs appear normal in the early arterial phase of enhancement. IMPRESSION: 1. No pulmonary embolism. 2. Small bilateral pleural effusions with bibasilar atelectasis. 3. Small right pneumothorax. No evidence for developing tension pneumothorax at this time. 4. Pneumomediastinum. A cause for pneumomediastinum is not definitively identified on this CT. Potential causes include ruptured esophagus, ruptured trachea and traumatic central line placement. Clinical correlation suggested. 5. Pneumoperitoneum likely related to recent laparotomy. Recommend clinical correlation. The result was discussed with Dr. Ansari prior to dictation. Dictated by: Trent Briones M.D. on 05/29/2018 at 9:42 Approved by: Trent Briones M.D. on 05/29/2018 at 10:02
--- NOTE | 2018-05-29 09:06 | PM.PN.1 ---
Subjective Date Patient Seen: 05/29/18 Time Patient Seen: 09:06 Interval history: Patient complaining of acute onset of stabbing pain in the right upper chest. States it feels as if a bolt is being stabbed from the anterior chest wall through to his back. He has difficulty taking a deep breath without pain. No cough or hemoptysis. Abdominal pain is relatively minimal and otherwise well controlled. He has a history of chest pain for which he was seen in the emergency department approximately a month ago and ruled out for cardiac event. However, he states that this is distinctly different. No nausea or vomiting. Exam Vital Signs (past 8 hours): - 05/29/18 02:00 05/29/18 06:00 05/29/18 07:12 Temperature 98.2 F 98.4 F Pulse Rate 68 71 Respiratory Rate 18 18 Blood Pressure 155/88 H 154/79 H Pulse Oximetry 92 92 98 05/29/18 08:23 Temperature Pulse Rate Respiratory Rate Blood Pressure Pulse Oximetry 91 Fraction of Inspired Oxygen 21 Oxygen Delivery Method Room Air Oxygen Flow Rate 0 Narrative Exam Narrative: Patient appears acutely in ill but in no significant distress. Alert oriented x3. He is unable to take a full inspiration without splinting on the right side. He has been afebrile and has no tachycardia. However his room air saturation has diminished to 92% Chest is clear to auscultation but he does have diminished breath sounds bilateral bases. Regular rate and rhythm. Abdomen is soft and minimally distended. Stoma is pink and viable. Incision is clean, dry, and intact. Chacorta-Carreno drain is collecting serosanguineous fluid only. He is appropriately tender without guarding or rebound. Moe catheter remains in place draining clear urine Extremities show no clubbing, cyanosis, or edema Objective Labs Result Diagrams: 05/27/18 20:27 05/27/18 20:27 Labs: No new laboratory or radiographic studies for review Assessment & Plan Plan: Assessment/Plan Narrative: 63-year-old male 2 days status post Abrahan procedure for perforated diverticulitis who has no evidence of sepsis but I am concerned about his new onset acute shortness of breath with relative hypoxia on room air. He is at risk for pulmonary embolism. Therefore CTA of the chest has been ordered stat. We will continue his current care otherwise. Discontinue the Moe if the CTA is unremarkable. Will base further interventions on CT a results although he has been on Lovenox and sequential compression devices since surgery. If CTA is negative then ambulate aggressively. I discussed this with him today. All questions were answered to his satisfaction, and he voiced understanding. Orders were written. Quality VTE Deep Vein Thrombosis/Pulmonary Embolism Present on Admission: No
[2018-05-29] MEDS: LORazepam 2 MG/ML SYRINGE 1 MG IV (17:15)
--- NOTE | 2018-05-29 17:58 | PC.NURSE ---
Wound Ostomy Nurse Note Mr. Cross awake. States that his chest was hurting but just had some ativan. He is very pleasant. He is aware of his surgical procedure. His stoma is oval, measuring 3inches wide and 1 1/2 long. The stoma is edematous, deep red, moist and nearly at skin level. The sutures are intact. There was about 25cc of serosanguneous drainage. I change his appliance. I placed him back in a 70mm flat moldable Convatec wafer with an adaptor and a transparent non-filter pouch. I also used some stoma adhesive paste because the 70mm wager is to big in the length around the stoma and I wanted to protect the saad-stomal skin. His mid-line andra are intact, with some bruising. His JENNIFER drain on his right abd. is draining serosanguenous drainage. He has a kimball cath that is draining straw colored urine. I left some reading materials for him to review and we will continue to review these together in the next few days. They are the [employer] New Ostomy Guide, Convate appliance Guide and the [employer] Living with a ostomy. Mr. Cross said that the appliance is like plumbing and I agreed. I told him I would review how to take care of his stoma in the next several days. He currently lives on a sailboat at [facility] by himself but has the opportunity to live in a house of a friend on vacation for the next two weeks. I will return tomorrow to continue teaching and assess his stoma.
--- NOTE | 2018-05-29 22:25 | PC.NURSE ---
1700- Patient assisted to walk by MANUFACTURING SYSTEMS ENGINEER. During the walk patient c/o increased right chest pain and SOB. Patient assisted back to bed. Saturation on 2l cannula was 95% but work of breathing appeared increased. A small amount of crepitus was noted at the clavical near the base of the neck. Dr. Oden was notified and orders rec. No further difficulty this shift.
[2018-05-30] VITALS (10 sets, daily range): BP systolic 137–160; BP diastolic 85–94; PULSE 60–73; RESP 16–18; TEMP 36.3–37.2; O2SAT 63–95
--- NOTE | 2018-05-30 | DI.RAD.S_ITS ---
PROCEDURE: XR CHEST 1V INDICATIONS: right pneumothorax TECHNIQUE: One view of the chest was acquired. COMPARISON: [facility], CR, XR CHEST 1V, 05/29/2018, 9:57. FINDINGS: Surgical changes and devices: None. Lungs and pleura: The mild perihilar and bibasilar opacities noted. Small right apical pneumothorax is unchanged from prior exam of 05/29/18. Mediastinum: Previously noted pneumomediastinum has a similar appearance when compared with prior exam. Mediastinal contours appear otherwise normal. Heart size is normal. Similar volume of pneumoperitoneum with free air beneath the right hemidiaphragm again noted. Bones and chest wall: Osseous structures are unchanged from prior exam. There is decreased subcutaneous emphysema within the neck. IMPRESSION: #1. Similar small right apical pneumothorax, pneumomediastinum, and pneumoperitoneum when compared with prior exam of 05/29/18. #2. Mild perihilar and bibasilar pulmonary consolidations likely represent atelectasis, with pneumonia thought less likely. Dictated by: August Meyers M.D. on 05/30/2018 at 9:11 Approved by: August Meyers M.D. on 05/30/2018 at 9:40
[2018-05-30] MEDS: metroNIDAZOLE 500 MG/100 ML PIGGYBACK 100 MG IV ×4 (03:23→21:32)
[2018-05-30] MEDS: CIPROFLOXACIN 400 MG/200 ML PIGGYBACK 200 MG IV ×2 (03:25→14:21)
--- NOTE | 2018-05-30 05:27 | PC.NURSE ---
Pt is A and O x 4, denies pain. Pt used approx 1.0 mg MEDICAL ENGINEER Dilaudid this shift. Pt able to sleep. LS clear, coarseness noted L upper lobe. Reg S1, S2. 0 BTs noted, voiding copious amounts of clear yellow urine. Incision is C/D/I and ostomy has no output. Denies nausea.
[2018-05-30] MEDS: HYDROMORPHONE PCA 6 MG/30 ML PCA.VIAL IV ×3 (05:49→21:34)
[2018-05-30 07:19] LABS: Add Manual Diff / Slide Review NO; Basophils Percent Auto 0.4 % (0-2); Eosinophils Percent Auto 1.6 % (2-4); Hematocrit 38.3 % (41-53); Hemoglobin 12.8 g/dL (13.5-17.5); Lymphocytes Percent Auto 11.5 % (25-40); Mean Corpuscular HGB Conc 33.5 % (30-36); Mean Corpuscular Hemoglobin 29.6 PG (26-34); Mean Corpuscular Volume 88.2 fL (80-100); Monocytes Percent Auto 9.8 % (3-14); Neutrophils Absolute Auto 6200 /uL (3000-5900); Neutrophils Percent Auto 76.7 % (50-75); Platelet Count 227 X10^3/uL (150-400); Red Blood Cell Count 4.34 X10^6/uL (4.5-5.9); Red Cell Distribution Width 13.6 % (11.6-14.8); White Blood Cell Count 8.1 X10^3/uL (4.5-11.0)
[2018-05-30 07:27] LABS: BUN Creatinine Ratio 12.5 (6-22); Blood Urea Nitrogen 10 mg/dL (9-20); Carbon Dioxide 29 mmol/L (22-32); Chloride 103 mmol/L (98-107); Estimated Glomerular Filt Rate > 60.0 mL/min (>60); Glucose 109 mg/dL (80-110); HEMOLYSIS < 15 (0-50); Potassium 3.5 mmol/L (3.4-5.1); Sodium 138 mmol/L (137-145)
[2018-05-30] MEDS: DEXTROSE 5%-0.45% NS 1,000 ML 100 ML IV (09:44)
[2018-05-30] MEDS: ENOXAPARIN 40 MG/0.4 ML SYRINGE SUBCUT (09:45)
--- NOTE | 2018-05-30 13:36 | PC.NURSE ---
Addendum entered by Emilee Tejeda R.N. 05/30/18 14:14: MS - pt up oob w/fww, color expert assist and friend at side, ambul slowly out into hallway and around the no end loop, ret to chair. Original Note: AM NOTE - awake, pain controlled with audio visual collections coordinator, 0.2/10/6mg with 0.1mg/hr contin, 2l 94%, removed this am and maintained ra 94%, abd soft, active bt and colostomy has small qty serosang in bag with air, stapled incision open air w/surrounding bruising, no drainage, JENNIFER rlq compressed w/serosang in bulb, kimball w/clear urine and in this am and pt may leave kimball in at this time as pt refusing dc of kimball, states hx urinary retention and has to use a coudet tip at home, bs dim, brought in IS and pt demonstrated use to 1000, enc oob to chair, pt prefers wait until later.
--- NOTE | 2018-05-30 17:31 | PC.NURSE ---
Wound Ostomy Nurse Consult Note Maximino sleeping but easily aroused. He states he is feeling much better today, but is hungry. His stoma is deep red, moist. There is some gas in the pouch as well as some old serosanguenous drainage. The appliance is intact. I left the ostomy model with him and will review pouching and stoma care on Saturday.
--- NOTE | 2018-05-30 18:18 | P.PN_ITS ---
Subjective Date Patient Seen: 05/30/18 Time Patient Seen: 08:15 Interval history: Patient was seen early this morning. He is sleeping less evening. He was concerned about ever going back to work and wanted to be considered for some sort of note that would prevent is very stressful job from overwhelming him. This is especially true allergy as an ostomy. Just started having air come out as ostomy bag this morning. Marked improvement in his pain. He chronically self caths and would like his Moe the stay in. Apparently he had a prolonged. A bladder distension and isn't functioning normally by his history. Exam Vital Signs (past 8 hours): - 05/30/18 11:14 05/30/18 12:15 05/30/18 15:00 Temperature 97.4 F L Pulse Rate 62 Respiratory Rate 16 Blood Pressure 137/90 Pulse Oximetry 94 94 95 05/30/18 16:00 Temperature 98.6 F Pulse Rate 61 Respiratory Rate 16 Blood Pressure 139/91 H Pulse Oximetry 95 Fraction of Inspired Oxygen 21 Oxygen Delivery Method Room Air Oxygen Flow Rate 0 Narrative Exam Narrative: Operative no apparent distress. Good respiratory effort. Clear anteriorly and laterally. Heart regular rate and rhythm without murmur gallop. Abdomen is mildly distended but soft. His ostomy is viable. There is a bag full of air. No stool output yet. Incision is intact. Drainage noted. Objective Labs Result Diagrams: 05/30/18 06:34 05/30/18 06:34 Labs: Laboratory Results - last 24 hr 05/30/18 05/30/18 06:34 06:34 WBC 8.1 RBC 4.34 L Hgb 12.8 L Hct 38.3 L MCV 88.2 MCH 29.6 MCHC 33.5 RDW 13.6 Plt Count 227 Neut % (Auto) 76.7 H Lymph % (Auto) 11.5 L [place] % (Auto) 9.8 Eos % (Auto) 1.6 L Baso % (Auto) 0.4 Neut # (Auto) 6200 H Sodium 138 Potassium 3.5 Chloride 103 Carbon Dioxide 29 BUN 10 Creatinine 0.80 Estimated GFR > 60.0 BUN/Creatinine Ratio 12.5 Glucose 109 Calcium 8.0 L Assessment & Plan Post-op Postoperative Procedures Operation Date: 05/27/18 18:30 Actual Procedures Side Surgeon p Colon Resection with clostomy placement Francisco Enriquez MD Postoperative status narrative: Post end-colostomy colon resection and Abrahan' s procedure for perforated diverticulitis. He is doing pretty well. Ostomy is began to function with a air at least. Postoperative plan narrative: Will leave Moe in place since the patient has to straight cath himself anyhow. He has very high urine outputs so he is probably mobilizing 3rd space. White blood cell count is okay. Continue broad- spectrum antibiotics. Continue DVT prophylaxis Time Spent With Patient less than 15 minutes Quality VTE Deep Vein Thrombosis/Pulmonary Embolism Present on Admission: No
[2018-05-31] VITALS (8 sets, daily range): BP systolic 132–146; BP diastolic 75–90; PULSE 59–68; RESP 13–17; TEMP 36.6–36.8; O2SAT 92–96
[2018-05-31] MEDS: DEXTROSE 5%-0.45% NS 1,000 ML 80 ML IV (01:01)
[2018-05-31] MEDS: CIPROFLOXACIN 400 MG/200 ML PIGGYBACK 200 MG IV ×2 (01:02→14:08)
--- NOTE | 2018-05-31 02:01 | PC.NURSE ---
Cow Tester Note: 0030: Awake, resting in bed. IV in place in lt AC with D5 1/2NS infusing at 80cc/hr. Abdominal incision open to air with andra intact and JENNIFER drain intact and compressed. Stoma bag intact with no sign of leakage; stoma is beefy red and bag has small amt serosanguinous drainage. Pt declines SCDs.
[2018-05-31] MEDS: metroNIDAZOLE 500 MG/100 ML PIGGYBACK 100 MG IV ×4 (04:10→22:55)
[2018-05-31] MEDS: HYDROMORPHONE PCA 6 MG/30 ML PCA.VIAL IV ×3 (06:38→21:01)
[2018-05-31] MEDS: ENOXAPARIN 40 MG/0.4 ML SYRINGE SUBCUT (09:50)
--- NOTE | 2018-05-31 11:24 | PC.NURSE ---
AM NOTE - drowsy, awakened later am, states did not sleep well due to noise during night, abd discomfort 4-5 on scale 0/10, pt demonstrated use demand correctional security officer, also 0.1mg/hr continuous, bt are hyperactive r quadrants, small qty serosang in colostomy bag w/air, later am pt assisted oob x 1 person and ambul w/fww north wing loop and ret to chair.
[2018-05-31] MEDS: DOCUSATE 100 MG CAPSULE 200 MG PO (12:18)
[2018-05-31] MEDS: SIMETHICONE 80 MG TABLET PO ×3 (12:18→20:59)
--- NOTE | 2018-05-31 14:17 | PN_ITS ---
DATE OF SERVICE: 05/31/2018 SUBJECTIVE: Patient is 4 days postop exploratory laparotomy Abrahan procedure for perforated sigmoid diverticulitis with severe generalized peritonitis. Subjectively, he's feeling well. He's passing flatus through his stoma. No nausea, vomiting. Patient has been ambulating well and has minimal discomfort. OBJECTIVE: He is afebrile. His vital signs are stable. Abdomen is soft. His incision is healing nicely with no sign of infection. His stoma is pink, and there is plenty of flatus in his colostomy bag. IMPRESSION AND PLAN: Patient is recovering nicely from diffuse peritonitis secondary to his perforated sigmoid diverticulitis and Abrahan procedure. PLAN: Start full-liquid diet. Ordered some stool softeners, some oral analgesics using just ibuprofen. He's still getting his PERSONAL LINES ACCOUNT EXECUTIVE, which we'll probably stop tomorrow, and we stopped his IV fluids. We'll probably remove his Moe catheter tomorrow after he completes this significant diuresis which has been going on the last day or so. He put out 4 L of urine yesterday, in the last 24 hours, mobilizing his fluids of resuscitation. Patient at home has to do self-catheterization, so I've been in no hurry to get his Moe catheter out. Maximino Cross - Sarah/shea doc#: [id number]/job#: [id number] dd: 05/31/2018 11:45:00 dt: 05/31/2018 14:12:00 DICTATING /COPIES TO: Francisco Enriquez MD COPIES MNE: MIGUEL
--- NOTE | 2018-05-31 14:34 | CM.DPC ---
DCP Cont: This APPLICATION ARCHITECT MANAGER requested that SHYLA Andre complete a chart review for this APPLICATION ARCHITECT MANAGER; pt has been here since 05.27.18; any DC needs this APPLICATION ARCHITECT MANAGER has overlooked ? According to Malachi's review and clinical judgment, no SW needs at this time. Awaiting bowel return and pt likely will be stable to return home to his boat or friend's house. Supportive friend at bedside today, pt eager to DC home when medically cleared. CM team following in case any DC needs or concerns arise. JW
[2018-05-31] MEDS: SODIUM CHLORIDE 0.9% 500 ML 21 ML IV (16:42)
[2018-06-01] VITALS (8 sets, daily range): BP systolic 134–153; BP diastolic 79–91; PULSE 58–68; RESP 16–19; TEMP 36.6–37.2; O2SAT 92–96
--- NOTE | 2018-06-01 01:47 | PC.NURSE ---
Pastrycook'S Assistant Note: 0030: Awake, resting in bed. IV in place in lt AC. Vital signs stable. Abdominal incision open to air, and andra are intact, with JENNIFER intact and compressed. Stoma is beefy red, and colostomy bag is intact, with small amt serous drainage. Pt using LIGHT RAIL SIGNAL TECHNICIAN for pain control.
[2018-06-01] MEDS: CIPROFLOXACIN 400 MG/200 ML PIGGYBACK 200 MG IV ×2 (02:33→13:42)
[2018-06-01] MEDS: metroNIDAZOLE 500 MG/100 ML PIGGYBACK 100 MG IV ×4 (04:18→21:53)
[2018-06-01] MEDS: HYDROMORPHONE PCA 6 MG/30 ML PCA.VIAL IV (05:45)
[2018-06-01] MEDS: DOCUSATE 100 MG CAPSULE 200 MG PO (10:20)
[2018-06-01] MEDS: SIMETHICONE 80 MG TABLET PO ×4 (10:20→21:53)
[2018-06-01] MEDS: ENOXAPARIN 40 MG/0.4 ML SYRINGE SUBCUT (10:20)
[2018-06-01] MEDS: OXYCODONE/ACETAMINOPHEN 5/325 TABLET 1 TAB PO ×3 (10:24→21:53)
--- NOTE | 2018-06-01 13:11 | PN_ITS ---
DATE OF SERVICE: 06/01/2018 Patient's now about 5 days post segmental sigmoid resection for perforated sigmoid diverticulitis. He had a Abrahan procedure. Subjectively, he feels minimal discomfort. He is ambulating. He's afebrile. He is passing flatus through his stoma. No stool yet. Tolerating a full liquid diet with no nausea, vomiting. Objectively, his incision is healing well. He's afebrile. No sign of infection. Final cultures have shown bacteroides anaerobes. No aerobes were grown, surprisingly, but he had received preop antibiotics, so maybe not. I'm going to continue Cipro and Flagyl for his diffuse peritonitis. He does not appear to be infected at this time. I will advance his diet to soft diet today. Patient's doing quite well. He is on Lovenox for DVT prophylaxis. Maximino Cross - Sarah/ doc#: [id number]/job#: [id number] dd: 06/01/2018 10:10:00 dt: 06/01/2018 13:04:00 DICTATING /COPIES TO: Francisco Enriquez MD COPIES MNE: MIGUEL
--- NOTE | 2018-06-01 13:24 | PC.NURSE ---
AM NOTE - pt is alert and assisted up to chair for breakfast, denies nausea, the colostomy is producing this serous fluid and there is visible a very small qty stool around stoma and air, bt are active, the madison is compressed with serosang in bulb, the stapled incision open to air with surrounding bruising and no drainage or redness noted, after breakfast discussed pain mgt and after speaking to , plan to dc mass communications instructor, given a percocet for pain 3-4 on scale 0/10, later after lunch the pt did ambulate around the [facility] and ret to chair, did use mass communications instructor x1 dose prior to it's dc.
[2018-06-02] VITALS (8 sets, daily range): BP systolic 142–165; BP diastolic 73–98; PULSE 60–75; RESP 16–21; TEMP 36.5–36.9; O2SAT 92–96
[2018-06-02] MEDS: CIPROFLOXACIN 400 MG/200 ML PIGGYBACK 200 MG IV ×2 (02:26→14:50)
[2018-06-02] MEDS: metroNIDAZOLE 500 MG/100 ML PIGGYBACK 100 MG IV ×4 (03:42→21:55)
[2018-06-02] MEDS: DOCUSATE 100 MG CAPSULE 200 MG PO (09:25)
[2018-06-02] MEDS: SIMETHICONE 80 MG TABLET PO ×4 (09:25→21:54)
[2018-06-02] MEDS: ENOXAPARIN 40 MG/0.4 ML SYRINGE SUBCUT (09:25)
--- NOTE | 2018-06-02 12:40 | PC.NURSE ---
Maximino is tolerating his general diet today. He has amb. in halls and showered this AM. VSS. His stoma is red and moist. Some flatus in ostomy bag, but no stool yet today. Moe draining leg. amt. zackery UOP. Maximino denies pain. Awaiting visit by Ostomy nurse specialist.
--- NOTE | 2018-06-02 15:34 | PC.NURSE ---
JENNIFER drain removed RLQ per Dr. Enriquez. Dry 2x2 drsg. applied.
--- NOTE | 2018-06-02 15:55 | PN_ITS ---
DATE OF SERVICE: 06/02/2018 Patient is now 5 days post Abrahan procedure for perforated sigmoid diverticulitis with generalized peritonitis. Subjectively, he feels well. Minimal discomfort. Eating solid diet. Stool is now coming through his colostomy. PHYSICAL EXAM: He's afebrile. His incision is healing beautifully with no sign of infection. Chacorta Carreno drain only put out 50 cc of straw-colored serosanguineous fluid in the last 24 hours. IMPRESSION: Patient's recovering nicely. He continues to be on Cipro and Flagyl. We grew bacteroides in his peritoneal cultures. No other organisms were grown. PLAN: Remove the JENNIFER drain today. Continue several more days of IV antibiotic therapy. He's being visited by the enterostomal for education for home care. Maximino Cross - Sarah/ doc#: [id number]/job#: [id number] dd: 06/02/2018 14:59:00 dt: 06/02/2018 15:49:00 DICTATING /COPIES TO: Francisco Enriquez MD COPIES MNE: MIGUEL
--- NOTE | 2018-06-02 18:11 | PC.NURSE ---
Wound Ostomy Nurse Consult Note Maximino awake in bed. He looks much better today and states he has be eating a regular diet and enjoying eating. I told him I spoke with Jonna his hydro station operator today. He states that he will be able to stay at a friends home until day by himself, as his friend is away on a holiday. He mentioned that he has other friends here in [place] that have offered for him to stay with them after . He also has his girlfriend coming down from [facility] this evening and he said he may also want to go stay with here, but understands that he would not be able to receive healthcare in [place]. I changed his pouching system this afternoon, explaining what I was doing and he was asking appropriate questions. His stoma is beefy red, moist just above skin level and I feel that at the 6-9:00 position the stoma may actually be below the skin level. His stoma is oval. I placed him in a [employer] 70mm oval moldable wafer and clear, non-filtered pouch. I used stoma paste to protect the exposed skin around the stoma. The stoma sutures are intact. I will most likely transition him into a 57mm wafer. He is producing formed stool and gas. His mid-line andra are intact and the skin is without redness or swelling but has bruising. There is no drainage from the incision line. His JENNIFER drain has been removed. His kimball is draining clear yellow urine. I showed him how to measure the stoma on the model and he molded and applied a pouch. He asked me about intimacy and I told him he should not have any problems and that I will bring material regarding this subject but also directed him the [employer] new ostomy guide that has an article. He said he would review this. He also had questions about swimming as he has a trip planned for August in the [place] and I discussed and reviewed with him about saad-stomal hernia prevention. I will return tomorrow to continue teaching. My plan is to have Maximino change his own appliance before he leaves. We did discuss discharge with Home Health Nursing and he feels that this may be helpful. I will continue to explore this with him tomorrow and the next few days.
[2018-06-03] VITALS (10 sets, daily range): BP systolic 126–148; BP diastolic 71–89; PULSE 56–69; RESP 16–20; TEMP 36.7–37; O2SAT 93–97
[2018-06-03] MEDS: CIPROFLOXACIN 400 MG/200 ML PIGGYBACK 200 MG IV ×2 (02:12→17:30)
[2018-06-03] MEDS: metroNIDAZOLE 500 MG/100 ML PIGGYBACK 100 MG IV ×4 (03:26→22:11)
--- NOTE | 2018-06-03 06:31 | PC.NURSE ---
Shift: [place] pt crying in room, this RN entered to find pt crying in bed. Pt stated that his recent health troubles including most recent surgery, previous urinary blockage, and previous episode of shingles has taken its toll. Spoke to pt at length about how he was feeling, what if anything could be done, and asked pt if he felt suicidal over recent issues because he had stated he was worried about whether he was long for this world. Pt reported that he does not feel suicidal, that he has many things to live for, and that he was actively working on himself as a person due to previous life choices involving devotion to work over family, etc. Pt reported feeling relief after conversation and appreciated that this RN took the time to talk to him.
[2018-06-03] MEDS: DOCUSATE 100 MG CAPSULE 200 MG PO (08:52)
[2018-06-03] MEDS: SIMETHICONE 80 MG TABLET PO ×4 (08:53→21:02)
[2018-06-03] MEDS: ENOXAPARIN 40 MG/0.4 ML SYRINGE SUBCUT (08:53)
--- NOTE | 2018-06-03 12:04 | PC.NURSE ---
Wound Ostomy Consult Note Maximino was asleep in bed, yet easily aroused. He continues to look stronger yet he states he had difficulty sleeping because of pain last night. He continues to tolerate are regular diet and is tolerating liquids. He states that his pouch was very full last night and this morning and he felt a bit turned off by all to stool. He insist he can smell the stool and he was wondering is the pouch is not order resistant. I explained to him again that the pouches are order resistant and the only time one would smell stool if it is on the pouch or his clothing and or skin as well as when he is emptying the pouch. His friend came in during teaching and he asked that she stay. He will be house sitting for her in the next few weeks. Maximino's girlfriend from [facility] (not [place]) is here and she arrived to his room after I had finished my teaching for the day. Maximino plans on going up to [facility] to stay with his girlfriend. I feel confident that he will not need home health nursing. He is learning ostomy concepts well and has practiced on the stoma model several times. He also has been straight cathing himself. DARIA Alvarez arrived and we discussed discharge planning with Maximino and feel he has a very well establish support system and I will be following up with him after discharge. Today we reviewed one piece pouching systems and cutting to fit which he did correctly on the model. We reviewed the crusting technique and I reviewed with him barrier rings, paste and powder. We reviewed diet and hydration. I did not change his pouching system. Tomorrow I will return and I will have Maximino change is pouching system with me as a guide. Upon discharge I will have supplies and order samples and will eventually set him up with a [employer] for product.
--- NOTE | 2018-06-03 12:40 | CM.DPC ---
DCP/continued: Reviewed chart. Spoke with Lisa Cordero with wound care. DARIA and Lisa met with patient and friend at bedside re: d/c plan. Per Lisa, patient okay to be taught at hospital how to care for new ostomy. She does not feel that patient will need HH. Patient in full agreement. Lisa will provide patient with initial supplies and place order for additional supplies. In addition, patient will have follow up outpatient appointment with Lisa at wound care center. No additional d/c needs identified at this time. Anticipate home when medically stable. DARIA Grant Discharge Planning/Care Management CM Discharge Assessment Start: 05/28/18 12:34 Freq: Status: Active Protocol: Document 05/28/18 12:34 KJS (Rec: 05/28/18 12:40 KJS [id number]) Discharge Planning Assessment Assigned Clearance Coordinator DARIA Grant Contact Information Gretchen Currie (sister) [phone] and [phone] Advance Directives? No History Provided By Patient Has Patient been admitted in last 30 No days? Prior Living Arrangements Apartment/Condo Household Members none Type of transporation used prior to Drives own vehicle admit Independent with ADL's Yes Is patient alert and oriented? Yes Caregiver for Another No Comment Pending hospitalization. Barriers to Discharge No Discharge Plan Home Transportation Arrangement Friends Additional Comment Unclear at time of d/c. Most likely will need HH for colostomy teaching/supplies. Whiteboard Updated in Patient Room with Yes name and ext. # of Clearance Coordinator Review Status In Process Please Provide Date Initial DC 05/28/18 Assessment Was Performed Next Review Type Continued Stay Review
--- NOTE | 2018-06-03 17:14 | PC.NURSE ---
Mitra shift note: Patient awake, alert, sitting in chair. Changed colostomy bag to RLQ, stoma appears pink. IV to left forearm discontinued per policy. This RN attempted restart at 1545, x 2 attempts, unable to place IV. Second RN to attempt. Unable to infused Antibiotics until established IV site.
--- NOTE | 2018-06-03 21:19 | PM.PN.1 ---
Subjective Date Patient Seen: 06/03/18 Time Patient Seen: 21:19 Interval history: Denies pain. Currently visiting with his significant other. He is in good spirits. Reports normal ostomy output. He has been working with the enterostomal therapist to learn care. Moe catheter remains in place, but the patient normally straight caths himself periodically at home. No subjective fever or chills. No chest pain or shortness of breath. Exam Vital Signs (past 8 hours): - 06/03/18 14:24 06/03/18 15:35 06/03/18 16:00 Temperature 98.1 F Pulse Rate 62 Respiratory Rate 16 Blood Pressure 133/89 Pulse Oximetry 97 96 95 06/03/18 20:53 Temperature 98.0 F Pulse Rate 64 Respiratory Rate 20 Blood Pressure 127/71 Pulse Oximetry 93 Fraction of Inspired Oxygen 21 Oxygen Delivery Method Room Air Oxygen Flow Rate 0 Narrative Exam Narrative: Well-nourished well-developed male in no acute distress. Alert oriented x3. No crackles or wheezes Abdomen soft, nondistended, nontender Incision is clean, dry, and intact Ostomy is pink and viable with normal stool and gas in the appliance Objective Labs Result Diagrams: 05/30/18 06:34 05/30/18 06:34 Assessment & Plan Plan: Assessment/Plan Narrative: 63-year-old male doing well after Abrahan procedure for perforated diverticulitis. We will discontinue the Moe and allow him to resume his usual straight catheterization regimen. Continue regular diet. Continue ciprofloxacin and Flagyl. I will plan another 3 days at home of oral antibiotics. Tentatively plan discharge tomorrow. Otherwise ambulate as tolerated. All questions were answered to his satisfaction, and he voiced understanding. Orders written. Quality VTE Deep Vein Thrombosis/Pulmonary Embolism Present on Admission: No
[2018-06-04 00:55] VITALS: O2SAT 95
[2018-06-04] MEDS: CIPROFLOXACIN 400 MG/200 ML PIGGYBACK 200 MG IV (02:45)
[2018-06-04 04:00] VITALS: BP 131/79; PULSE 66; RESP 17; TEMP 36.4; O2SAT 94
[2018-06-04] MEDS: metroNIDAZOLE 500 MG/100 ML PIGGYBACK 100 MG IV ×2 (05:45→09:58)
[2018-06-04 08:00] VITALS: BP 139/62; PULSE 67; RESP 17; TEMP 36.6; O2SAT 94
[2018-06-04] MEDS: ENOXAPARIN 40 MG/0.4 ML SYRINGE SUBCUT (09:58)
[2018-06-04] MEDS: SIMETHICONE 80 MG TABLET PO (09:58)
[2018-06-04 10:56] VITALS: O2SAT 96
[2018-06-04 11:00] VITALS: BP 121/80; PULSE 68; RESP 16; TEMP 36.6; O2SAT 95
--- NOTE | 2018-06-04 13:25 | PM.DS.1 ---
History of Present Illness Date Patient Seen: 06/04/18 Time Patient Seen: 13:25 Chief complaint: ABDOMINAL PAIN Narrative: 63-year-old male presented emergency department with significant progressive diffuse abdominal pain. Examination and evaluation were consistent with free air and perforated diverticulitis. He was taken to the operating room for emergent laparotomy. Postoperatively he was admitted to the regular surgical floor where he has since recovered. Discharge Providers Date of admission: 05/27/18 11:51 Primary care physician: Eduardo Loving Consults: 05/27/18 19:10 Consult to Discharge Planning Routine Comment: 05/28/18 12:55 Consult to Wound Care Routine Comment: Lisa Cordero RN for new colostomy care/education Consulting Provider: [facility] 05/29/18 09:51 Consult to Respiratory Therapy Evaluate & Treat Comment: right pneumothorax Physician Instructions: Evaluate and treat Discharge provider: Davon Ansari MD Discharge Date: 06/04/18 Summary Discharge Diagnosis: Perforated sigmoid diverticulitis with abscess growing Bacteroides species on culture Emergent laparotomy with sigmoid colectomy and formation of descending end colostomy Drainage of pelvic abscess History of prostatectomy for prostate cancer Urethral stricture status post prostatectomy Urinary retention requiring self catheterization, chronic Right spontaneous pneumothorax of unclear etiology extending into pneumomediastinum, spontaneously resolved this admission Hospital Course: Patient was taken emergently to the operating room for the above procedures after presenting to the emergency department with diffuse abdominal pain and nausea. He tolerated the procedure well. Postoperatively he was returned to the regular surgical floor where he remained afebrile and hemodynamically stable. He did have some acute right-sided chest pain by postoperative day 1 suspicious for pulmonary embolism. However CTA of the chest revealed no pulmonary embolism. He did have evidence of a spontaneous right pneumothorax with extension into the mediastinum. This subsequently resolved spontaneously without further intervention. Postoperative his pain was well-controlled with REGISTERED NURSE POST PARTUM then converted oral analgesics. He was ambulating unassisted by the time of discharge. Wound is healing nicely without infection or other issues. Chacorta-Carreno drain was removed from the pelvis as he continued to improve and showed no evidence of sepsis. Colostomy remained viable. He had spontaneous return of bowel function per colostomy by the time of discharge. He has worked with the enterostomal therapist for self-care. He is comfortable with such at discharge. Moe catheter was removed several days after surgery and he returned to his usual straight catheterization regimen without issue. Urine output otherwise remained adequate. By the time of discharge he is tolerating a regular diet without issue. No nausea or vomiting. He has been restarted all of his usual home medications. We will continue a course of antibiotics consisting of ciprofloxacin and Flagyl. Jyoti were removed prior to discharge which he tolerated well. He will follow up in the surgery clinic next week. However, he has been instructed to call or return sooner if he has any issues with fever, chills, inability to tolerate a diet, nausea, vomiting, progressive abdominal distention, progressive pain, lack of ostomy output, or any other issues such as wound drainage. All questions were answered to his satisfaction, and he voiced understanding. Status at Discharge Cognitive/behavioral status at discharge: Alert, oriented x3 Functional status at discharge: independent ambulation Overall status at discharge: patient is progressing back to baseline Time Spent with Patient Less than 30 minutes Exam Vital Signs (past 8 hours): - 06/04/18 08:00 06/04/18 10:56 06/04/18 11:00 Temperature 97.9 F 98 F Pulse Rate 67 68 Respiratory Rate 17 16 Blood Pressure 139/62 121/80 Pulse Oximetry 94 96 95 Fraction of Inspired Oxygen 21 Oxygen Delivery Method Room Air Oxygen Flow Rate 0 Narrative Exam Narrative: Well-nourished well-developed male in no acute distress lying comfortably in bed. Alert oriented x3. His significant other is at the bedside during my entire visit today. Sclera nonicteric Chest clear to auscultation bilaterally with regular rate and rhythm. No murmurs, gallops, rubs Abdomen is soft and nondistended. He is minimally tender to palpation adjacent to the incision. He certainly has no guarding or rebound tenderness. Wound is clean, dry, and intact without erythema or ecchymosis. No hematoma or seroma. No wound drainage. Ostomy is pink and viable with normal stool and gas in the appliance. Extremities show no clubbing, cyanosis, or edema Objective Labs Result Diagrams: 05/30/18 06:34 05/30/18 06:34 Labs: No new laboratory or radiographic studies review. No new culture data. Findings are as above. He has been treated accordingly. Discharge Plan Discharge Plan Patient Disposition: Home Discharge Med Rec/Prescriptions Prescriptions: New sennosides [Senokot] 8.6 mg tablet 8.6 mg PO BEDTIME Qty: 10 RF: 1 docusate sodium [Colace] 100 mg capsule 100 mg PO BID Qty: 14 RF: 1 ciprofloxacin HCl 750 mg tablet 750 mg PO BID Qty: 6 RF: 0 metronidazole 500 mg tablet 500 mg PO TID Qty: 9 RF: 0 omeprazole 40 mg capsule,delayed release(DR/EC) 40 mg PO DAILY Qty: 30 RF: 0 oxycodone 5 mg tablet 5 mg PO Q4-6H PRN (Reason: pain) Qty: 30 RF: 0 Continue ascorbic acid (vitamin C) [Vitamin C] 1,000 mg Tablet 2,000 mg PO DAILY RF: 0 Glucosamine Sulf-Chondroitin 1 tab PO DAILY RF: 0 flaxseed oil 1 cap PO DAILY RF: 0 magnesium 1 tab PO DAILY RF: 0 multivitamin 1 tab PO DAILY RF: 0 Follow up/Referrals: Daovn Ansari MD [Physician] - 06/11/18 12:00 am (Please call office for exact appointment date and time if not already scheduled) Eduardo Loving [Primary Care Provider] - Provider Discharge Instructions Diet: Diet as Tolerated Activity: No driving while taking opioid pain medication No heavy lifting more than 20 lb for 3 more weeks May walk as much as desired May ride in vehicle May climb stairs Cold/Heat Therapy: May apply ice pack to incision as needed for comfort Other treatments: Colostomy appliance care as instructed per Lisa Cordero RN Skin/Wound/Dressing Care Report to your healthcare provider any signs of infection, such as:: chills, fever, increased pain, unusual drainage and unusual redness Dressing: Cover wound once daily and as needed with dry gauze dressing Other wound treatment: May shower Do not soak incision in bathtub or pool until further notice Visit Report/Discharge Packet Visit Report Forms: Stroke Signs & Symptoms Discharge Data Primary Care Provider: Eduardo Loving Attending Provider: Francisco Enriquez Admit Date/Time: 05/27/18 11:51 Quality VTE Deep Vein Thrombosis/Pulmonary Embolism Present on Admission: No
[2018-06-04 16:00] VITALS: O2SAT 98
--- NOTE | 2018-06-04 16:04 | PC.NURSE ---
Wound Ostomy Nurse Note Maximino awake and eager to be discharged from the hospital. He got out of bed and sat in the chair. I got everything ready for him to remove and change his pouching system. He states that last night he had a blow out, that they wafer was lifting from the 9:00 position. I see that the tape collar was not attached yet the pectin was. He removed the wafer cleaned his saad-stomal skin with assistance. We measured his stoma, measures 1 3/4 oval by 7/8. Maximino with guidance was able to use stoma past, mold the wafer and place it. He also use lubricating deodorant in the pouch. We used a ostomy wafer belt to help secure the pouching system. I gave Maximino several wafers and pouches as well as accessories. I will send sample products that will fit his body contour better than what we have here at the hospital. I will follow up with Maximino at [facility]. The stoma if beefy read. The os is pointing down and there is a little bit of a crease at the 9 and 3:00 position. He may eventually need to use a more flexable convex pouching system.
--- NOTE | 2018-06-04 16:59 | PC.NURSE ---
Mitra shift note: Patient discharged home per MD order. Patient verbalized understanding of discharge instructions, discussed importance of F/U with Dr. Ansari in 1 week, medications to be taken at home, and home care instructions. Patient in stable condition, discharged home via private vehicle accompanied by significant other.
== END 2018-06-04 16:00 | disposition home or self-care (01) | DRG 330 ==
LOC: ED 10:30 → AC 11:54
PROVIDERS: Surgery; Admitting Provider Surgery; Emergency Provider Emergency Medicine; PCP Physician Assistant; Visit Provider Surgery
PROC: 0DTN0ZZ Resection of Sigmoid Colon, Open Approach (ICD-10-PCS; CPT 44140; principal; 2018-05-27 18:30)
DX: K57.20 Diverticulitis of large intestine with perforation and abscess without bleeding (principal); J93.9 Pneumothorax, unspecified; J98.2 Interstitial emphysema; N99.114 Postprocedural urethral stricture, male, unspecified; Z85.46 Personal history of malignant neoplasm of prostate
CPT/HCPCS: 36415; 36591; 44143; 71045; 71275; 74174; 80048; 80053; 81003; 83690; 85025; 86850; 86900; 86901; 87070; 87075; 87205; 94760; 96361; 96365; 96368; 96375; 99221; 99284; 99291; 99292; J0330; J0744; J1100; J1170; J1650; J1885; J1956; J2060; J2405; J2704; J3010; Q9967

== ENCOUNTER → 2018-08-19 14:58 | Outpatient (CLI) | payer OTHER, MEDICAID, SELFPAY ==
[2018-06-26 09:26] VITALS: BMI 27.8
== END ==
PROVIDERS: PCP Physician Assistant; Visit Provider Family Medicine
DX: L92.8 Other granulomatous disorders of the skin and subcutaneous tissue (principal)
CPT/HCPCS: 17250

== ENCOUNTER → 2018-09-09 09:16 | Outpatient (CLI) | payer OTHER, MEDICAID, SELFPAY ==
[2018-06-26 09:26] VITALS: BMI 27.8
== END ==
PROVIDERS: PCP Physician Assistant; Visit Provider Family Medicine
DX: L92.8 Other granulomatous disorders of the skin and subcutaneous tissue (principal); Z43.3 Encounter for attention to colostomy
CPT/HCPCS: 17250

== ENCOUNTER 2018-09-18 08:55 | Day surgery (SDC) | payer OTHER, MEDICAID, SELFPAY ==
[2018-06-26 09:26] VITALS: BMI 27.8
[2018-09-18] VITALS (7 sets, daily range): BP systolic 101–124; BP diastolic 65–81; PULSE 55–71; RESP 8–21; TEMP 36.3–37.2; O2SAT 95–97; BMI 26.7
[2018-09-18] MEDS: MORPHINE 10 MG/ML INJ 2 MG IV (10:09)
[2018-09-18] MEDS: SODIUM CHLORIDE 0.9% 1,000 ML 84 ML IV (10:11)
--- NOTE | 2018-09-18 10:23 | SUR.PREOP ---
notified pt c/o chest pain this am. VVO for ekg, labs and morphine. EKG and labs done, morphine given. Pt reported chest pain resolved.
--- NOTE | 2018-09-18 10:32 | PM.PREOP ---
Pre-operative Note Interval Note History & Physical reviewed/Exam performed by Physician: Yes Changes to H&P: Yes H&P completed within 30 days and has changed as indicated here:: Patient came in with chest pain. He has been in the ER with this before. He has never really had a cardiac stress test. An IV was started, an EKG done, presently awaiting troponin results, and he was given 2 mg of morphine which relieved his pain. If the troponin is normal we will proceed. EKG showed some nonspecific T-wave changes ASA Class (for procedural sedation): I
[2018-09-18 10:37] LABS: Creatine Kinase 119 U/L (55-170)
[2018-09-18 10:48] LABS: Troponin I < 0.012 ng/mL (0.01-0.034)
[2018-09-18 10:52] LABS: CKMB % Relative Index 2.5 % (1.5-5.0); Creatine Kinase MB 2.99 ng/mL (<2.37)
[2018-09-18] MEDS: MIDAZOLAM 5 MG/5 ML VIAL IV (11:07)
[2018-09-18] MEDS: fentaNYL 250 MCG/5 ML INJ IV (11:09)
--- NOTE | 2018-09-18 11:23 | SUR.OPER ---
Sedation medication portion of chart stopped mid case. See Mar for med amounts
--- NOTE | 2018-09-18 11:24 | PM.OP.ENDO ---
Operative Date/Time/Diagnoses Date of procedure: 09/18/18 Time of procedure: 11:24 Pre-op diagnosis: Screening exam Post-op diagnosis: same ( colitis of the distal segment. Residual diverticulosis.) Procedure & Clinicians Study performed: Colonoscopy Same procedure as scheduled: Yes Indications: Screening in anticipation of colostomy closure Surgeon: Colby Oden Procedure Notes SCOAP/Timeout: Performed Procedure in detail: Patient is placed in left lateral decubitus position underwent IV sedation directed by the surgeon consisting of fentanyl and Versed. Digital exam was remarkable for very tight sphincter. The scope was inserted advanced through the rectum into the Abrahan stump area. I could visualize the andra at 25 cm from the anal verge. The scope was removed. Other than inflammation from disuse the appearance was normal. There were no strictures. Attention was then turned to the ostomy. The patient was placed supine. The ostomy he was palpated with a finger and then cannulated with the scope. The scope was advanced to the cecum. The cecum was identified by the ileocecal valve the appendiceal opening. Patient was noted to have diverticulosis in the distal 30 cm from the ostomy. Otherwise exam was unremarkable. There was no evidence of colitis or polyps or other abnormality. The scope was slowly brought out. No lesions were seen. The scope was removed the patient tolerated the procedure well.
--- NOTE | 2018-09-18 12:07 | SUR.PHASEII ---
Assisted patient with change of colostomy base and bag. Surrounding skin intact. Stoma beefy red.
== END 2018-09-18 12:40 | disposition home or self-care (01) ==
PROVIDERS: PCP Nurse Practitioner Family; Visit Provider Specialist
PROC: 0DJD8ZZ Inspection of Lower Intestinal Tract, Via Natural or Artificial Opening Endoscopic (ICD-10-PCS; CPT 45378; principal; 2018-09-18 09:45)
DX: Z87.19 Personal history of other diseases of the digestive system (principal); Z43.3 Encounter for attention to colostomy; I10 Essential (primary) hypertension; G47.30 Sleep apnea, unspecified; K57.30 Diverticulosis of large intestine without perforation or abscess without bleeding; R07.9 Chest pain, unspecified
CPT/HCPCS: 45378; 36415; 82550; 82553; 84484; 93005; J2250; J2270; J3010

== ENCOUNTER → 2018-10-07 12:49 | Outpatient (CLI) | payer OTHER, MEDICAID, SELFPAY ==
[2018-06-26 09:26] VITALS: BMI 27.8
--- NOTE | 2018-10-07 14:08 | PM.TREADMILL ---
Cardiac Stress Test Report Referral & Results Date Patient Seen: 10/07/18 Requesting provider: Zaira Duran Indication: Preop Rest ECG: Unremarkable Procedure Note: Today following both written and verbal informed consent patient was exercised according to a standard Kody protocol. Patient went about 5 minutes total well into stage II and his heart rate had hardly increased over baseline. He had a target heart rate of 133 therefore at that point the standard Kody treadmill was terminated and this was switched to a Lexiscan treadmill. This had been scheduled as a Cardiolite so perfusion imaging was already available. Therefore the treadmill slow to 1 mi an hour with no elevation patient received the Lexiscan material through the previously started and Hep-Lock IV. He then received the Cardiolite isotope immediately. He continued on the treadmill for an additional 3 minutes. He did experience some dyspnea. Heart rate actually increased higher with the Lexiscan that did with his exercise to the point where it was discontinued. No ECG changes and patient seemed to have a normal response to all infuse materials. Only thing of note is his lack of chronotropic response to exercise Impression: Blunted heart rate response to exercise Please see perfusion imaging report for details regarding possible ischemia Please note: Actual ECG tracings can be found in the PACS system.
--- NOTE | 2018-10-08 14:58 | DI.NM.S_ITS ---
DATE OF SERVICE: 10/07/2018 PROCEDURE PERFORMED: Exercise treadmill, converted to pharmacological vasodilator stress and rest myocardial perfusion imaging with gating to assess ejection fraction and regional wall motion. REFERRING PROVIDER: SHAYY Balderrama. INDICATIONS: The patient requires preoperative evaluation and has chest pain. CARDIAC STRESS: The patient was initially stressed on the treadmill but was unable to achieve an adequate heart rate response achieving a maximum heart rate of only 92 bpm after 5 minutes of exercise and therefore was converted to a pharmacologic study and injected with 0.4 mg of regadenoson per protocol. The patient had a normal hemodynamic response with this and had no chest discomfort reported. His resting ECG is normal and there are no obvious ST-segment shifts, although there is considerable motion artifact. There were no obvious arrhythmias. Per protocol, 25.7 mCi a technetium-99 Myoview was injected and the patient was imaged 15 minutes later using a gated SPECT protocol. He returned the following day and was reinjected with an additional 24.8 mCi of technetium-99 Myoview and was imaged 30 minutes later, again using a quantitative gated SPECT protocol. FINDINGS: 1. Raw Data: There is fair myocardial tracer uptake with considerable motion noted on the post stress images which introduce artifact. The resting images appear to be more stable. The lung/heart ratio is normal at 0.36 with a normal TID ratio of 1.03. 2. Quantitative Gated SPECT: Post stress ejection fraction is estimated at 72% without any focal wall motion abnormality. Resting ejection fraction is estimated at 66% with a normal resting end-diastolic volume of 118 mL. 3. Myocardial Perfusion Imaging: Post stress supine images shows a fairly normal perfusion imaging pattern, although with a very mild defect in the inferior wall that completely resolves on the prone imaging suggesting this reflects attenuation artifact. The resting images shown identical perfusion pattern without any clear areas of improvement. CONCLUSIONS: 1. Probable normal myocardial perfusion study. 2. Mild fixed inferior defect that completely resolves on prone imaging, consistent with attenuation artifact. There is no compelling evidence for myocardial ischemia or previous myocardial infarction. 3. Normal left ventricular systolic function without any focal wall motion abnormalities. 4. No angina or ECG evidence of ischemia with exercise, although a blunted heart rate. There is no ECG evidence of ischemia with exercise or pharmacologic stress. Maximino Cross - AKSHAT/sil/ doc#: [id number]/job#: [id number] dd: 10/08/2018 12:44:00 dt: 10/08/2018 14:46:00 DICTATING MD/COPIES TO: Manish Andre MD; Zaira Duran NP COPIES MNE: SVETLANA SKINNER
== END ==
PROVIDERS: PCP Nurse Practitioner Family; Visit Provider Nurse Practitioner Family
DX: Z01.818 Encounter for other preprocedural examination (principal); R07.9 Chest pain, unspecified
CPT/HCPCS: 78452; 93016; 93017; 93018; A9502; J2785

== ENCOUNTER → 2018-10-15 11:14 | Outpatient (CLI) | payer OTHER, MEDICAID, SELFPAY ==
[2018-06-26 09:26] VITALS: BMI 27.8
[2018-10-15 12:09] LABS: Add Manual Diff / Slide Review NO; Basophils Absolute Auto 100 /uL (0-100); Eosinophils Absolute Auto 200 /uL (0-450); Eosinophils Percent Auto 2.9 % (2-4); Hematocrit 44.7 % (41-53); Hemoglobin 15.6 g/dL (13.5-17.5); Lymphocytes Absolute Auto 1400 /uL (1100-4500); Lymphocytes Percent Auto 23.4 % (25-40); Mean Corpuscular HGB Conc 34.9 % (30-36); Mean Corpuscular Hemoglobin 29.4 PG (26-34); Mean Corpuscular Volume 84.2 fL (80-100); Monocytes Absolute Auto 500 /uL (0-900); Monocytes Percent Auto 9.4 % (3-14); Neutrophils Absolute Auto 3700 /uL (1500-7000); Neutrophils Percent Auto 63.3 % (50-75); Platelet Count 270 X10^3/uL (150-400); Red Cell Distribution Width 13.9 % (11.6-14.8); White Blood Cell Count 5.8 X10^3/uL (4.5-11.0)
[2018-10-15 12:24] LABS: Alanine Aminotransferase 17 IU/L (21-72); Albumin 4.1 g/dL (3.5-5.0); Albumin Globulin Ratio 1.5 (1.0-2.8); Alkaline Phosphatase 62 U/L (38-126); Aspartate Aminotransferase 20 IU/L (17-59); BUN Creatinine Ratio 16.7 (6-22); Bilirubin Total 0.5 mg/dL (0.2-1.3); Blood Urea Nitrogen 15 mg/dL (9-20); Calcium 9.1 mg/dL (8.4-10.2); Carbon Dioxide 26 mmol/L (22-32); Chloride 102 mmol/L (98-107); Estimated Glomerular Filt Rate > 60.0 mL/min (>60); Globulin 2.8 g/dL (1.7-4.1); Glucose 112 mg/dL (80-110); HEMOLYSIS < 15 (0-50); Potassium 3.5 mmol/L (3.4-5.1); Sodium 138 mmol/L (137-145); Total Protein 6.9 g/dL (6.3-8.2)
== END ==
PROVIDERS: PCP Nurse Practitioner Family; Visit Provider Specialist
DX: Z01.818 Encounter for other preprocedural examination (principal)
CPT/HCPCS: 36415; 80053; 85025; 93005

== ENCOUNTER 2018-10-23 09:37 | Inpatient (IN) | payer OTHER, MEDICAID, SELFPAY ==
[2018-06-26 09:26] VITALS: BMI 27.8
--- NOTE | 2018-10-17 11:03 | DIET.PN ---
Met with pt for pre-surgery education per [facility] protocol. Reports 25# unintentional wt loss prior to colostomy; regained some wt back and maintaining. Scheduled for colostomy takedown next week. Provided ed on pre and post-surgery nutrition needs; carbo loading prior to surgery - given 1 container of Ensure Pre-s
--- NOTE | 2018-10-17 11:07 | DIET.PN ---
Met for pre-surgery education. Reports unintentional 25# wt loss prior to colostomy. Plans to return next week for colostomy takedown. States he was told he'll be in hospital for 5-10 days because they will need to leave his wound open for a while before closing. Education provided: reviewed booklet- enhancing recovery after surgery. Encouraged to drink Ensure Clear during 2 day clear liquids for bowel prep; instructed on carb loading before surgery and given 1 container of Ensure Pre Surgery Clear drink.
[2018-10-21 07:23] VITALS: BMI 28.0
[2018-10-23] VITALS (21 sets, daily range): BP systolic 103–157; BP diastolic 62–98; PULSE 47–72; RESP 10–20; TEMP 36.3–37.4; O2SAT 91–100; BMI 26.7
[2018-10-23] MEDS: LACTATED RINGERS 1,000 ML 42 ML IV (10:21)
--- NOTE | 2018-10-23 11:39 | PM.PREOP ---
Pre-operative Note Interval Note History & Physical reviewed/Exam performed by Physician: Yes Changes to H&P: No
[2018-10-23] MEDS: NEOMYCIN PR (11:58)
[2018-10-23] MEDS: SODIUM CHLORIDE PR (11:58)
[2018-10-23] MEDS: ERYTHROMYCIN PR (11:58)
--- NOTE | 2018-10-23 12:10 | SUR.PREOP ---
Enema given per rectum as directed by Dr. Oden. 180mls given, pt c/o rectal pain, Dr. Oden notified, no additional enema fluid needed per MD. Pt placed in trendelenberg per Dr. Oden. Tolerated the procedure well
[2018-10-23] MEDS: levoFLOXacin 750 MG/150 ML PIGGYBACK 100 MG IV (12:16)
[2018-10-23] MEDS: metroNIDAZOLE 500 MG/100 ML PIGGYBACK 100 MG IV (12:50)
--- NOTE | 2018-10-23 14:00 | SUR.OPER ---
Patient transported to OR 2. After epidural placement and anesthesia induction, attempted to place urinary catheter unsuccessfully. Dr. Oden attempted catheter placement and performed cystoscopy. Decision was made to wake patient up, to see if he could successfully self-catheterize, as he does this at home. Patient was unsuccessful. Dr. Oden will arrange for a urology consult, and reschedule surgery.
--- NOTE | 2018-10-23 14:33 | SUR.PHASEI ---
1433: Pt into PACU holding. Waiting for urologist to arrive to return to OR.
--- NOTE | 2018-10-23 14:36 | PM.OP.1 ---
Operative Date/Time/Diagnoses Date of procedure: 10/23/18 Time of procedure: 14:00 Pre-op diagnosis: Colostomy after it perforated diverticulitis Post-op diagnosis: same (Procedure not performed due to lack of Moe catheter access see details below) Procedure & Clinicians Procedure: Colostomy closure not attempted abandoned preoperatively due to a lack of a Moe catheter Same procedure as scheduled: No Indications: Colostomy for closure Anesthesia Type: General Operative Notes Findings: Urethral stricture Closure Type: not applicable Specimen(s): none sent Estimated Blood Loss (mL): 0 Blood products transfused: none Procedure in detail: The patient was placed supine on the operating room table after having a thoracic epidural catheter placed for postoperative pain management. He then underwent general endotracheal anesthesia. we attempted to place a Moe catheter unsuccessfully. Various catheters multiple sizes coude and non coude types were tried. Nursing and myself attempted catheter placement. We finally decided to allow the patient to wake up extubate him and see if he could place a catheter. We did so and he could not. We called the urologist, Dr. Charlton who was kind enough to come to the hospital in order to place a catheter. Because this will be a prolonged process and require separate procedure we plan to place the catheter today and proceed with his operation tomorrow. Patient is aware and agreeable. Complications: none Condition: stable Disposition: PACU
--- NOTE | 2018-10-23 15:59 | SUR.HOLD ---
1434: pt into holding while awaiting urologist. Plan to return to OR.
--- NOTE | 2018-10-23 16:29 | SUR.PHASEI ---
1500: pt having a small amount of bloody drainage dripping from the end of his penis. Fluffs were placed around the tip to catch any other drips.
--- NOTE | 2018-10-23 17:43 | SUR.OPER ---
Lithotomy on padded OR bed, head on pillow, arms secured on padded arm boards at <90 degrees abduction. Legs secured in padded yellow fins stirrups.
[2018-10-23] MEDS: BUPIVACAINE 0.5% W/ EPI (PF) VIAL 30 ML INJ (18:40)
--- NOTE | 2018-10-23 19:03 | SUR.OPER ---
SUPRAPUBIC CATH 12FR X 25CM PLACED, COOK REF [id number], LOT [id number] EXPIRES 01/11/19
--- NOTE | 2018-10-23 19:52 | PC.NURSE ---
1934 - Patient brought over from PACU in bed by nursing staff. Alert and oriented with pleasant affect. Suprapubic catheter in place draining clear yellow urine, dressing C/D/I. Epidural catheter capped, dressing C/D/I. Oriented to room and call light, call light within reach.
[2018-10-23] MEDS: LACTATED RINGERS 1,000 ML 100 ML IV (20:04)
[2018-10-23] MEDS: NEOMYCIN 500 MG TABLET 1000 MG PO (21:31)
[2018-10-23] MEDS: MAGNESIUM CITRATE 300 ML SOLUTION 150 ML PO (21:31)
[2018-10-23] MEDS: ERYTHROMYCIN BASE 500 MG TABLET 1000 MG PO (21:31)
[2018-10-23] MEDS: ENOXAPARIN 40 MG/0.4 ML SYRINGE SUBCUT (21:31)
[2018-10-24] VITALS (23 sets, daily range): BP systolic 93–144; BP diastolic 48–86; PULSE 53–90; RESP 9–20; TEMP 36–37.3; O2SAT 90–99; BMI 26.7
[2018-10-24] MEDS: LACTATED RINGERS 1,000 ML 100 ML IV (05:03)
--- NOTE | 2018-10-24 07:54 | CONS_ITS ---
DATE OF SERVICE: 10/23/2018 REQUESTING PHYSICIAN: Colby Oden MD REASON FOR REQUEST: Inability to place preoperative Moe catheter. HISTORY: Maximino is a 63-year-old white male who presented today for planned laparoscopic takedown of colostomy. Preoperative attempt to place Moe catheter was unsuccessful by staff. The patient was awakened, and apparently staff learned at that time that he has a significant previous genitourinary history. In fact, he himself tried to pass a catheter and was unsuccessful and resulted in much bleeding. Thus, the call for consultation. He is status post laser photo vaporization of the prostate in [place] in August of 2011. He commented that he was told it was a very large gland and in fact he was informed that it was incompletely resected. He returned to the [facility] and was living in [place], [place], and underwent a re-do TURP in the fall. He then seemingly did fine and developed urinary retention in February of 2018. He presented to [facility] emergency department, and attempts at catheter placement were unsuccessful. He then presented to [facility] emergency department and ultimately saw Dr. Ram. Maximino reports having undergone some type of intervention. His quoted terminology is, I underwent a Roto-Rooter. He is uncertain whether this is related to scar tissue or prostatic obstruction. He was instructed thereafter to perform clean intermittent catheterization. He has not followed up in months. He admits to catheterizing weekly up until about 2 months ago, at which point he entirely discontinued clean intermittent catheterization. He acknowledges that he has a very weak and feeble urinary stream but seems to have very little bother or concern. ALLERGIES: INCLUDE PENICILLIN, SULFA, AND STATINS. PAST MEDICAL HISTORY: Otherwise reflected in the admission note of Dr. Colby Oden PAST SURGICAL HISTORY: Otherwise reflected in the admission note of Dr. Colby Oden FAMILY HISTORY: Otherwise reflected in the admission note of Dr. Colby Oden REVIEW OF SYSTEMS: Otherwise reflected in the admission note of Dr. Colby Oden PHYSICAL EXAM: HEAD AND NECK: Unremarkable. CHEST: Equal, clear, unlabored bilaterally. HEART: Rate is regular. ABDOMEN: Soft, scaphoid. Healing low midline incision and viable colostomy in the left lower quadrant. GENITOURINARY: External genitalia demonstrate uncircumcised phallus with blood on the inner prepuce and glans. Scrotum: no lesions. Testes descended bilaterally. Perineum clear. RECTAL: Not performed. EXTREMITIES: No pallor, edema, clubbing, cyanosis. IMPRESSION: Inability to establish lower urinary tract drainage in preparation for extended intraabdominal operation under general anesthetic in a 63-year-old male with extensive previous genitourinary interventions. PLAN: Discussion and informed consent obtained this evening for: 1. Possible dilation. 2. Cystoscopy and possible incision or resection of scar tissue. 3. Placement of lower urinary tract drainage catheter. Maximino Cross - QUENTIN/sil/shea doc#: [id number]/job#: [id number] dd: 10/23/2018 19:03:00 dt: 10/24/2018 07:43:00 DICTATING /COPIES TO: Darcy Charlton MD COPIES MNE: ALLA
--- NOTE | 2018-10-24 10:08 | PC.NURSE ---
Addendum entered by Nila Jara R.N. 10/24/18 12:28: Patient to surgery at 1152. Levaquin sent with pt. Original Note: Dr. Oden in to give pt pre surgical ensure to drink now. IVF infusing. supra pubic cath intact and draining. drsg dry and intact. epidural cath secured with tape and opsite.
--- NOTE | 2018-10-24 12:00 | PM.PREOP ---
Pre-operative Note Interval Note History & Physical reviewed/Exam performed by Physician: Yes Changes to H&P: Yes H&P completed within 30 days and has changed as indicated here:: Now has a suprapubic tube. had additional bowel prep since our operation was delayed 1 day.
[2018-10-24] MEDS: levoFLOXacin 750 MG/150 ML PIGGYBACK 100 MG IV (12:57)
[2018-10-24] MEDS: metroNIDAZOLE 500 MG/100 ML PIGGYBACK 100 MG IV (13:30)
--- NOTE | 2018-10-24 13:48 | SUR.OPER ---
Lithotomy on padded OR bed. [place] Pad Positioner under torso. Head on pillow, left arm padded and tucked at side, right arm secured on padded armboard. Legs secured in padded yellow fins stirrups.
[2018-10-24] MEDS: BUPIVACAINE 0.5% (PF) VIAL 30 ML INJ (14:05)
[2018-10-24] MEDS: LACTATED RINGERS 1,000 ML 42 ML IV (15:00)
--- NOTE | 2018-10-24 15:30 | OP_ITS ---
DATE OF SERVICE: 10/23/2018 PREOPERATIVE DIAGNOSES: 1. 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 2. History of bladder outlet obstruction due to postprocedural stricture and scar formation. 3. Inability to advance Moe catheter preoperative for laparoscopic takedown of colostomy. POSTOPERATIVE DIAGNOSES: 1. 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 2. History of bladder outlet obstruction due to postprocedural stricture and scar formation. 3. Inability to advance Moe catheter preoperative for laparoscopic takedown of colostomy. 4. Takedown of false passage of [id number] bulbar urethra at about 2- o'clock position. PROCEDURES PERFORMED: 1. Cystoscopy with multiple attempts at bladder access versus [place] and guide wires. 2. Placement, suprapubic cystostomy. SURGEON: Darcy Charlton MD ANESTHESIOLOGIST: Aron Fierro MD ANESTHESIA: General plus 0.5% Marcaine with epinephrine. OPERATIVE SUMMARY: The patient was positioned. Spinal was administered with general anesthetic. He was then repositioned in semi-lithotomy. The lower abdomen, genitalia, and groin were prepped and draped in sterile fashion. A 17- Gambian taylor endoscope was then passed to the lower urinary tract with the findings as described above. Then, 0.025 and 0.035 Glidewires were attempted without success, and finally an angled sensi-tip wire was utilized; however, attempts were unsuccessful to advance more proximally, and because of either closure or an acute anterior angulation going in the retrograde direction, I could not visualize a passageway more than approximately 1 or 1.5 cm to my length. At that point, intraoperative judgement was to abort further retrograde attempts. The lower abdomen was then prepped and draped in sterile fashion. Local anesthetic was used to infiltrate the midline just above the pubic symphysis. Incision in the skin was created and a small cutdown through the anterior abdominal wall. A 12-Gambian pigtail suprapubic catheter was then advanced under careful direction with trocar in place. Positioning was confirmed with withdrawal of urine via Luer-Ihsan syringe. Final adjustments were made for positioning. The coil was established with the nylon adjustment line. The catheter was sutured to the skin with 0-silk. Antibiotic ointment was applied to the site, dry sterile gauze, and Micropore tape. It was further secured to the skin with a catheter hold. The catheter was attached to gravity drainage. Patient was then repositioned supine, awakened, transferred to a gurney, transferred to recovery in stable condition. Maximino Cross - Deirdre/shea doc#: [id number]/job#: [id number] dd: 10/23/2018 18:56:00 dt: 10/24/2018 07:32:00 DICTATING MD/COPIES TO: Darcy Charlton MD ; Colby dOen MD COPIES MNE: ALLA NANCE
--- NOTE | 2018-10-24 16:17 | CM.IDA ---
Initial DCP Assessment Note: Pt is a 63 yo male, staying w/family in [place]. Pt admitted for a colostomy closure. PCP: Lila Duran Payer: [employer]. Reviewed chart. Initial attempt at surgery postponed d/t not having a kimball cath after failed attempt. Urology consult requested and completed by Dr Darcy Charlton. Pt w/ long standing h/o urological issues. Scheduled closure was performed today. According to review, pt will likely return home w/friends and no barriers to safe return home w/close outpt f/u per orders. This GANG RIDER will follow closely in case any DC needs or questions arise. Pt typically lives on his boat which he docks in an [facility]. DARIA Nails Discharge Planning/Care Management CM Discharge Assessment Start: 10/24/18 16:15 Freq: Status: Active Protocol: Document 10/24/18 16:16 DANGELO (Rec: 10/24/18 16:17 DANGELO [id number]) Discharge Planning Assessment Assigned Motor Builder Winder Daria Billy DPOA/Assigned Designee Name sister Fernandez Contact Information [phone] Advance Directives? Yes History Provided By Patient Medical Record Prior Living Arrangements House Household Members friends/family none Type of transporation used prior to Drives own vehicle admit Independent with ADL's Yes Is patient alert and oriented? Yes Barriers to Discharge No Discharge Plan Home Transportation Arrangement Friends Referrals Initiated None needed Review Status In Process
--- NOTE | 2018-10-24 16:57 | SUR.OPER ---
Abdomen irrigated with 3,[address] Oden
--- NOTE | 2018-10-24 17:28 | SUR.PHASEI ---
pt c/o aching chest pain, 12/01, vs stable. Dr. Fierro notified and evaluated patient. No new orders at this time.
[2018-10-24] MEDS: MORPHINE 10 MG/ML INJ 4 MG IV (17:39)
--- NOTE | 2018-10-24 17:48 | SUR.PHASEI ---
Epidural at 8ml/hr per Dr Fierro
--- NOTE | 2018-10-24 17:54 | SUR.PHASEI ---
Report called to Alona
--- NOTE | 2018-10-24 18:10 | SUR.PHASEI ---
Pt transferred to the ICU with tele monitor. Report to Karen. VS stable. Drsaydee cdi. Urinary catheter patent. IV saline locked. Epidural infusing without difficulty. Pt reported numbness and pain to his arms prior to leaving PACU, Dr. Fierro notified, no new orders. Port Surveyor equal to bue. Pt moving ori arms and legs independently.
--- NOTE | 2018-10-24 18:16 | P.OP_ITS ---
Operative Date/Time/Diagnoses Date of procedure: 10/24/18 Time of procedure: 17:30 Pre-op diagnosis: Colostomy after treatment of perforated diverticulitis brought in for closure Post-op diagnosis: same Procedure & Clinicians Procedure: Laparoscopic colostomy closure with end-to-end anastomosis and mobilization of the splenic flexure laparoscopically Same procedure as scheduled: Yes Indications: Patient desired closure of his colostomy Surgeon: Colby Oden Repairer Screen Crusher: [place] Parkinsonr Anesthesia Type: General Operative Notes Findings: Excellent blood supply to both ends of the colon. Anastomosis tested with air under water and no evidence of leak. palpably patent. Closure Type: primary Specimen(s): none sent Prosthetic devices, grafts, tissues, transplants, or devices: None Estimated Blood Loss (mL): 25 Blood products transfused: none Procedure in detail: The patient was placed supine on the operating room table and underwent general endotracheal anesthesia. was put in low lithotomy and prepped and draped in the usual fashion. His suprapubic tube was excluded from the area in his ostomy was oversewn to prevent leakage of material. Small incision was made above the umbilicus and carried down under direct vision in the peritoneal cavity. Stay sutures of 0 Vicryl were placed in the fascia. 12 mm port was inserted and the abdomen is is insufflated. There was almost no adhesions to the anterior abdominal wall the few there were were taken down with sharp dissection. two additional ports were placed. One was just below the umbilicus and 1 was in the right medial abdomen. we 1st began in the pelvis mobilizing small bowel from it. there was 1 loop of bowel that appeared to be adherent to the staple line from the colon. Was taken down off sharply and there was no evidence of small-bowel injury. I was concerned slightly about a colonic injury but decided that would be taking care of at the time of the anastomosis. we then mobilized the descending colon by cutting its attachments to the lateral abdominal wall. we used Harmonic scalpel to do this. The omentum was lifted and detached from the transverse colon from midline to the splenic flexure. The flexure was mobilized and appeared that we had adequate mobility to bring the end of the colon down into the pelvis. We then made an incision in the skin around the edge of the ostomy and free the ostomy up from the subcu fat and the fascial edge of the muscle. It was completely released and returned to the peritoneal cavity. we tested the length of the bowel and could see that it easily went into the pelvis. The concern was if the distal and would come up. a proctoscope was inserted and in attempting to advance the scope it became clear there was an air leak from the end of the colon and therefore it made no sense to persist as that and had to be dealt with in an open fashion. in any event the colon was felt to be too long to actually feet in EEA up into the the end of this colon segment which was rather long. Therefore we initially attempted to mobilize the distal segment up through the ostomy site but it was not quite long enough and therefore small incision was made the lower abdomen through the old midline scar. Was carried into the peritoneal cavity. we easily had the distal limb of the colon and the proximal. And Riz[place]ana was placed into the wound and the distal limb was identified and cleared of fat. We chose a point on the proximal colon that had healthy viable tissue and cleared the edge of fat. Interrupted silk sutures 3 0 were placed along the back wall of both the distal segment and the proximal. Staple line was cut out of the distal segment a bowel clamp was placed on the proximal segment and the segment of colon was resected down to where we plan to do the anastomosis. both ends bled well. three 0 Vicryl was then used in a running Aixa fashion to form an inner layer and a the anastomosis and then the anterior wall with serum muster cyst silks were placed. the anastomosis was patent. A proctoscope was inserted and air was insufflated with the bowel clamped. There was good distention and no air leak. air went immediately across the anastomosis without difficulty. the proctoscope was removed the bowel clamp was removed the pelvis was irrigated and suctioned free of fluid. The gutters were suctioned free of fluid after irrigating. There did not appear to be any significant bleeding. the fascia at the ostomy was closed with interrupted ylnayr-sa-[id number] 0 PDS. The midline fascia was closed with a double- stranded 0 PDS an occasional 0 Vicryl stitch interrupted sutures. the wounds were irrigated. Four 0 Vicryl was used to partially close the subcu in the midline. adnra were used to close the skin except at the ostomy site. three 0 Vicryl interrupted sutures were placed but not tied. They were left on tied but will be tied in about 4 days. The patient was awakened extubated and taken recovery area in good condition. Complications: none Condition: stable Disposition: PACU
--- NOTE | 2018-10-24 18:18 | PC.NURSE ---
Addendum entered by Yamila Vaughan R.N. 10/24/18 20:15: 1940 - Dr. Oden updated on situation. EKG completed. New orders received for morphine PRN. Given per orders. Repositioned patient to have right shoulder up and patient stated pain immediately began moving to right shoulder. Repositioned patient to comfortable position. Provided warm blankets to shoulders. Addendum entered by Yamila Vaughan R.N. 10/24/18 19:32: 1930 - Patient reporting increased pain to left shoulder. States it feels like muscle or bone pain. States it is an 8/10. Stat EKG ordered and Dr. Oden paged. Original Note: 1809 - Patient returned to room from PACU. Brought into room in bed by nursing staff. Alert and oriented with pleasant affect. Denies pain to abdomen, but states he has pain to his shoulders. PACU nurse Sukhjinder states that Dr. Oden and the anesthesiologist are aware of this. Dressing to abdomen C/D/I. Suprapubic catheter remains in place draining clear, yellow urine. Epidural in place running per orders. Oriented to room and call light, call light within reach.
[2018-10-24] MEDS: ROPIVACAINE 0.2% 8 MG IV (19:27)
[2018-10-24] MEDS: MORPHINE 4 MG/ML INJ IV ×2 (19:40→23:54)
[2018-10-24] MEDS: ACETAMINOPHEN 325 MG TABLET 650 MG PO (20:07)
[2018-10-24] MEDS: GABAPENTIN 300 MG CAPSULE PO (20:07)
[2018-10-24] MEDS: ENOXAPARIN 40 MG/0.4 ML SYRINGE SUBCUT (20:56)
[2018-10-24] MEDS: LACTATED RINGERS 1,000 ML 125 ML IV (20:56)
[2018-10-25] VITALS (10 sets, daily range): BP systolic 125–148; BP diastolic 65–85; PULSE 68–74; RESP 14–18; TEMP 37–37.6; O2SAT 92–97
[2018-10-25] MEDS: LACTATED RINGERS 1,000 ML 125 ML IV ×2 (04:57→12:58)
[2018-10-25] MEDS: ROPIVACAINE 0.2% 8 MG IV ×3 (04:57→21:36)
[2018-10-25 05:05] LABS: Add Manual Diff / Slide Review NO; Basophils Absolute Auto 0 /uL (0-100); Basophils Percent Auto 0.1 % (0-2); Eosinophils Absolute Auto 0 /uL (0-450); Hematocrit 42.3 % (41-53); Hemoglobin 14.3 g/dL (13.5-17.5); Lymphocytes Absolute Auto 600 /uL (1100-4500); Lymphocytes Percent Auto 5.7 % (25-40); Mean Corpuscular HGB Conc 33.8 % (30-36); Mean Corpuscular Hemoglobin 28.9 PG (26-34); Mean Corpuscular Volume 85.5 fL (80-100); Monocytes Absolute Auto 600 /uL (0-900); Monocytes Percent Auto 5.5 % (3-14); Neutrophils Absolute Auto 9600 /uL (1500-7000); Neutrophils Percent Auto 88.7 % (50-75); Platelet Count 209 X10^3/uL (150-400); Red Blood Cell Count 4.94 X10^6/uL (4.5-5.9); Red Cell Distribution Width 13.8 % (11.6-14.8); White Blood Cell Count 10.8 X10^3/uL (4.5-11.0)
[2018-10-25 05:12] LABS: Alanine Aminotransferase 24 IU/L (21-72); Albumin 3.2 g/dL (3.5-5.0); Albumin Globulin Ratio 1.1 (1.0-2.8); Alkaline Phosphatase 56 U/L (38-126); Aspartate Aminotransferase 17 IU/L (17-59); BUN Creatinine Ratio 12.2 (6-22); Bilirubin Total 0.4 mg/dL (0.2-1.3); Blood Urea Nitrogen 11 mg/dL (9-20); Calcium 8.2 mg/dL (8.4-10.2); Carbon Dioxide 24 mmol/L (22-32); Chloride 104 mmol/L (98-107); Estimated Glomerular Filt Rate > 60.0 mL/min (>60); Globulin 2.8 g/dL (1.7-4.1); Glucose 148 mg/dL (80-110); HEMOLYSIS < 15 (0-50); Magnesium 1.7 mg/dL (1.6-2.3); Sodium 137 mmol/L (137-145)
[2018-10-25] MEDS: MORPHINE 4 MG/ML INJ IV ×2 (08:25→15:27)
[2018-10-25] MEDS: GABAPENTIN 300 MG CAPSULE PO ×2 (11:46→20:40)
--- NOTE | 2018-10-25 13:56 | P.PN_ITS ---
Subjective Date Patient Seen: 10/25/18 Time Patient Seen: 13:51 Interval history: Patient is been having a lot of musculoskeletal pain across his chest. He had chest pain preoperatively and underwent cardiac testing. Otherwise he also is having some discomfort along his diaphragm and down both sides. This is fairly mild to him. Exam Vital Signs (past 8 hours): - 10/25/18 07:15 10/25/18 07:30 10/25/18 11:00 Temperature 99.7 F H 98.7 F Pulse Rate 69 68 Respiratory Rate 16 14 Blood Pressure 138/77 146/83 H Pulse Oximetry 92 95 97 Oxygen Delivery Method Nasal Cannula Oxygen Flow Rate 1 Narrative Exam Narrative: Operative no apparent distress. Lungs are clear to auscultation with good air movement. Heart regular rate and rhythm without murmur gallop. Abdomen is protuberant and soft. The open wound is healthy. I changed the dressing. Objective Labs Result Diagrams: 10/25/18 04:36 10/25/18 04:36 Labs: Laboratory Results - last 24 hr 10/25/18 10/25/18 04:36 04:36 WBC 10.8 RBC 4.94 Hgb 14.3 Hct 42.3 MCV 85.5 MCH 28.9 MCHC 33.8 RDW 13.8 Plt Count 209 Neut % (Auto) 88.7 H Lymph % (Auto) 5.7 L Victoria % (Auto) 5.5 Eos % (Auto) 0.0 L Baso % (Auto) 0.1 Neut # (Auto) 9600 H Lymph # (Auto) 600 L Victoria # (Auto) 600 Eos # (Auto) 0 Baso # (Auto) 0 Sodium 137 Potassium 4.0 Chloride 104 Carbon Dioxide 24 BUN 11 Creatinine 0.90 Estimated GFR > 60.0 BUN/Creatinine Ratio 12.2 Glucose 148 H Calcium 8.2 L Magnesium 1.7 Total Bilirubin 0.4 AST 17 ALT 24 Alkaline Phosphatase 56 Total Protein 6.0 L Albumin 3.2 L Globulin 2.8 Albumin/Globulin Ratio 1.1 Assessment & Plan Post-op Postoperative Procedures Operation Date: 10/23/18 10:15 Actual Procedures Side Surgeon p Cystoscopy Flexible Colby Oden MD p Laparoscopically Assisted Colostomy Closure - Aborted Colby Oden MD Operation Date: 10/23/18 16:15 Actual Procedures Side Surgeon p Cystoscopy Rigid, FLEXIBLE CYSTOSCOPY Darcy Charlton MD s Cystoscopy w/ Suprapubic Cath Placement Darcy Charlton MD Operation Date: 10/24/18 12:30 Actual Procedures Side Surgeon p Laparoscopy colostomy closure; closure of hepatic flexure Colby Oden MD Postoperative day: 1 Postoperative status narrative: Doing well. . Postoperative plan narrative: Continue morphine for his musculoskeletal pain in addition to his thoracic epidural catheter for his abdominal incisional pain I think it is a bit anxious and I have encouraged the nurses to use the Ativan that is ordered. I will continue his antibiotics for another day or to given the nature of the operation, the ostomy that was present, and the contamination that is unavoidable when the ostomy is returned to the abdomen. Quality VTE Deep Vein Thrombosis/Pulmonary Embolism Present on Admission: No
--- NOTE | 2018-10-25 13:56 | CM.DPNOTE ---
According to Dr Oden, pt will remain here for at least an addtl. 4-5 days. He lives alone and may have needs upon DC, Dr Oden can assess this better closer to DC. This VALVE MACHINE OPERATOR met w/pt today, explained SW role. Pt had been living off/on w/ a local friend but has recently been back on his boat. Pt has good friends that live locally, his girlfriend lives in [facility] and will be visiting next weekend. Pt will be renting a room in [place] upon this DC, he has access to a full kitchen and BR. Pt understands from Dr Oden that he will need to be on soft foods for at least 4-6 weeks to allow his bowel to rest. Pt says he can begin clear liquids today, pt has not eaten in 5 days. Pt is POD#1 from his abd surgery and also underwent a Cystoscopy w/ Suprapubic Cath Placement. Pt says he thinks he would benefit from home health nursing upon DC. He also has received meals on wheels in the past and wonders if he could have this arranged before his DC? This VALVE MACHINE OPERATOR explained that the VALVE MACHINE OPERATOR team would follow for DC needs; there could be contact w/the [facility] to inquire about meals on wheels (w/soft foods only?) when DC date is better known. Pt very appreciative. Pt enjoys cooking and hopes he can use his crock pot to cook some of his own meals. Friends can also help pt w/meals if standing for longer periods of time becomes cumbersome. VALVE MACHINE OPERATOR team will follow and review DCP again w/pt closer to his DC date. DARIA Nails
[2018-10-25] MEDS: metroNIDAZOLE 500 MG/100 ML PIGGYBACK 100 MG IV ×2 (14:19→20:40)
[2018-10-25] MEDS: levoFLOXacin 750 MG/150 ML PIGGYBACK 100 MG IV (15:20)
--- NOTE | 2018-10-25 15:27 | PC.NURSE ---
Pt up to chair with 1PA, FWW, gait belt. Tolerated well. Intermittent c/o shoulder/chest pain today. Dr. Oden aware. Dr. Oden recommends giving Ativan. Educated pt to med regimen. He verbalizes understanding but declines use of PRN ativan. VSS. Using call light appropriately.
--- NOTE | 2018-10-25 21:04 | PC.NURSE ---
2100 - Pt resting quietly in bed. Continues to report bilateral shoulder pain, however denies abd pain. Dermatome level of epidural approximately T8, infusing at 10cc/hr. Pt on RA 95%, encouraged I.S. use, pt states I have done it a little, I will do more tomorrow. Discussed treatment plan. Pt verbalized understanding. Pt c/o dry mouth, sips of water provided with HS meds. Call light in reach.
[2018-10-25] MEDS: ENOXAPARIN 40 MG/0.4 ML SYRINGE SUBCUT (21:32)
[2018-10-26] VITALS (9 sets, daily range): BP systolic 131–162; BP diastolic 66–94; PULSE 64–75; RESP 16–19; TEMP 37.1–37.8; O2SAT 90–94
[2018-10-26] MEDS: metroNIDAZOLE 500 MG/100 ML PIGGYBACK 100 MG IV ×2 (00:43→08:49)
[2018-10-26] MEDS: LACTATED RINGERS 1,000 ML 125 ML IV ×3 (00:43→17:18)
[2018-10-26] MEDS: MORPHINE 4 MG/ML INJ IV ×4 (01:41→23:50)
[2018-10-26] MEDS: ROPIVACAINE 0.2% 8 MG IV ×2 (06:11→15:59)
[2018-10-26] MEDS: GABAPENTIN 300 MG CAPSULE PO ×2 (08:49→21:24)
--- NOTE | 2018-10-26 09:29 | PN_ITS ---
DATE OF SERVICE: 10/25/2018 Post op day #2 status post placement cystoscopy and placement, suprapubic cystostomy. SUBJECTIVE: He was actually napping but once awoken, he is alert, oriented, and appropriate. He denies any pain but has many, many questions from related to his circumstances and plan. OBJECTIVE: Afebrile, vital signs are stable. My understanding is that his colostomy takedown yesterday was performed uneventfully. Examination: The dressings are thick and complex and I did not disturb them. The suprapubic is draining clear straw-colored urine. No blood or clots IMPRESSION: Bladder outlet obstruction of uncertain anatomy in a gentleman with an extensive past history of lower urinary tract interventions for outlet obstruction, currently stable with placement, suprapubic cystostomy. PLAN: Recommend daily local site care with half water or saline and half- peroxide. Running tap water is fine as a medium with hydrogen peroxide or half- strength solution. The site may then be dressed with a panty liner or feminine pad with a small stellate cut with scissors. Usually under clothing will adequately maintain positioning of the drain sponge. Otherwise, please provide contact information for follow-up with me following Mr. Cross's discharge Maximino Cross - QUENTIN/sil/ab doc#: [id number]/job#: [id number] dd: 10/25/2018 18:10:00 dt: 10/26/2018 09:17:00 DICTATING /COPIES TO: Darcy Charlton MD; Colby Oden MD COPIES MNE: KARYN NANCE
--- NOTE | 2018-10-26 10:29 | PM.PNPO.1 ---
Subjective Date Patient Seen: 10/26/18 Time Patient Seen: 10:29 Interval history: The patient feels better than yesterday. Has not yet been up but plans to do so. Exam Vital Signs (past 8 hours): - 10/26/18 03:45 10/26/18 06:00 10/26/18 08:00 Temperature 98.9 F 99.5 F Pulse Rate 70 75 Respiratory Rate 16 18 Blood Pressure 152/94 H 155/91 H Pulse Oximetry 90 L 92 92 Oxygen Delivery Method Room Air Oxygen Flow Rate 0 Narrative Exam Narrative: Lungs fair effort. Clear to auscultation. Heart regular rate and rhythm without murmur gallop. Abdomen is scaphoid and soft. Incisions are intact. Open ostomy site is clean. Objective Labs Result Diagrams: 10/25/18 04:36 10/25/18 04:36 Assessment & Plan Post-op Postoperative Procedures Operation Date: 10/23/18 10:15 Actual Procedures Side Surgeon p Cystoscopy Flexible Colby Oden MD p Laparoscopically Assisted Colostomy Closure - Aborted Colby Oden MD Operation Date: 10/23/18 16:15 Actual Procedures Side Surgeon p Cystoscopy Rigid, FLEXIBLE CYSTOSCOPY Darcy Charlton MD s Cystoscopy w/ Suprapubic Cath Placement Darcy Charlton MD Operation Date: 10/24/18 12:30 Actual Procedures Side Surgeon p Laparoscopy colostomy closure; closure of hepatic flexure Colby Oden MD Postoperative day: 2 Postoperative status: doing well Quality VTE Deep Vein Thrombosis/Pulmonary Embolism Present on Admission: No
[2018-10-26] MEDS: ONDANSETRON 4 MG/2 ML INJ IV ×2 (13:20→20:20)
--- NOTE | 2018-10-26 13:30 | PC.NURSE ---
Addendum entered by Thom Joseph R.N. 10/26/18 14:52: Pt c/o mild nausea without vomiting post zofran administration as well as shoulder discomfort. Ativan offered. Pt refused. Declines need for PRN morphine at this time. Original Note: 1015- Wet to dry dsg changed done to partially closed surgical wound per MD order. Drain sponge placed to suprapubic cath site. Site WNL. ABD pain and tape used to secure dsg. Pt tolerated well. Able to get OOB and ambulate today. BTs are active. Pt denies flatus. Cont. with c/o shoulder/chest pain. Educated to med regimen. Pt is reluctant to accept these medications because they make him feel flat. Clear liquids ordered for lunch. Pt able to tolerate some tea, clear ensure, and few bites of jello. After lunch, pt c/o wooziness and nausea. VSS. Provided tooth brush. Pt performed own oral care. Then CGA with gait belt and fww back to bed. After resting, he reports decrease in symptoms. Pt again c/o nausea and was administered zofran. Placed call light in easy reach. Will monitor.
[2018-10-26] MEDS: LORazepam 2 MG/ML SYRINGE 1 MG IV (16:02)
[2018-10-26] MEDS: ENOXAPARIN 40 MG/0.4 ML SYRINGE SUBCUT (21:24)
[2018-10-26] MEDS: chlorproMAZINE 25 MG in SODIUM CHLORIDE 0.9% 500 ML 1002 ML IV (23:27)
[2018-10-27] VITALS (10 sets, daily range): BP systolic 145–159; BP diastolic 88–96; PULSE 67–91; RESP 14–18; TEMP 36.7–38; O2SAT 91–93
[2018-10-27] MEDS: LACTATED RINGERS 1,000 ML 125 ML IV ×2 (01:34→09:49)
[2018-10-27] MEDS: ROPIVACAINE 0.2% 8 MG IV ×2 (01:36→11:15)
[2018-10-27] MEDS: PANTOPRAZOLE 40 MG VIAL 30 MG IV (01:41)
[2018-10-27] MEDS: ONDANSETRON 4 MG/2 ML INJ IV (02:33)
--- NOTE | 2018-10-27 02:47 | PC.NURSE ---
Report given epidural running at 10ml/hr and found to be so. 25mg Infusion of Thorazine given for Hiccoughs with some relief but not total. Med for nausea and 200ml emesis with Zofran. Order obtained from Dr. Oden for Protonix for pt c/o reflux and given with fair results. Med with Morphine for c/o pain from vomiting and Hiccoughs. Patient sleeping periodically, but not soundly.
[2018-10-27 06:55] LABS: Add Manual Diff / Slide Review NO; Basophils Absolute Auto 0 /uL (0-100); Basophils Percent Auto 0.3 % (0-2); Eosinophils Absolute Auto 0 /uL (0-450); Eosinophils Percent Auto 0.1 % (2-4); Hematocrit 40.1 % (41-53); Lymphocytes Absolute Auto 600 /uL (1100-4500); Lymphocytes Percent Auto 6.3 % (25-40); Mean Corpuscular HGB Conc 34.9 % (30-36); Mean Corpuscular Hemoglobin 29.4 PG (26-34); Mean Corpuscular Volume 84.2 fL (80-100); Monocytes Absolute Auto 1000 /uL (0-900); Monocytes Percent Auto 10.5 % (3-14); Neutrophils Absolute Auto 7700 /uL (1500-7000); Neutrophils Percent Auto 82.8 % (50-75); Platelet Count 212 X10^3/uL (150-400); Red Blood Cell Count 4.76 X10^6/uL (4.5-5.9); Red Cell Distribution Width 13.5 % (11.6-14.8); White Blood Cell Count 9.3 X10^3/uL (4.5-11.0)
--- NOTE | 2018-10-27 09:13 | PC.NURSE ---
Addendum entered by Jeimy Alcala R.N. 10/27/18 13:58: Dressing to old ostomy site changed, one 4x4 soaked with saline placed into wound. No odor, scant amount bloody drainage noted to old dressing. 4x4 placed over site and secured with paper tape. Supra pubic site also cleansed per orders. Patient bathed and ambulated around nursing station, gait steady. C/o pain when back to the chair, 2mg IVP morphine given. Patient also continues with the hiccups, chlorpromazine hung. Also given maalox for c/o reflux. Has poor appetite, did not take any clear liquids from tray. Original Note: Pt sleeping, easily aroused, denies abdominal pain but c/o reflux, states it is better. Hiccups continue while awake. BT+ but denies flatus. Patient refused to get out of bed at this time, did dangle at edge of bed for assessment. States I want to sleep a bit more. Patient agreeable to ambulate later this morning.
--- NOTE | 2018-10-27 11:54 | DIET.PN ---
Three days post op. Getting clear liquid trays but states he can't eat anything as his reflux is so bad. Requesting Mg to help alleviate. Reports was not able to take much of clear liquids or Ensure Clear [employer] during bowel prep because, I don't tolerate all those carbs Dx: S/P colostomy closure on 10/24 Diet: Clear liquids Ht: 175cm Weight: 82kg BMI: 27 Wt hx: 25# wt loss in Jun per pt r/t diverticulosis. Regained some. Usual Wt: approx 189#/ 86kg Percent wt change: 5% Assessment: Minimal PO nutrition X> week; not tolerating PO nutrition r/t reflux. Increased nutrient needs for post surgery healing. Hx of wt loss w/current illness. Nutrition Dx: Moderate PCM r/t inflammation of acute illness/surgery, PO intake estimated <50% EER X 1 week AEB 5% wt change from usual wt. Intervention: Try adding clear ONS to trays, but doubt pt will consume r/t reflux. Suggest consider TPN if unable to increase PO nutrition soon. Pt agreeable to alternate nutrition support if needed. Plan: monitor PO intake. Add Roque to meals; encouraged to try.
--- NOTE | 2018-10-27 12:48 | PM.PNPO.1 ---
Subjective Date Patient Seen: 10/27/18 Time Patient Seen: 12:37 Interval history: Patient having some hiccups. Treated with Thorazine with improvement. Still occasionally has them. Feels like he is having heartburn. Was placed on Protonix. Exam Vital Signs (past 8 hours): - 10/27/18 08:58 10/27/18 08:59 10/27/18 10:58 Temperature 100.4 F H 98.1 F Pulse Rate 91 H Respiratory Rate 18 Blood Pressure 146/96 H Pulse Oximetry 93 93 10/27/18 12:10 Temperature 99.7 F H Pulse Rate 67 Respiratory Rate 16 Blood Pressure 159/88 H Pulse Oximetry 93 Oxygen Delivery Method Room Air Oxygen Flow Rate 0 Narrative Exam Narrative: Lungs are clear. Heart regular rate and rhythm without murmur gallop. Abdomen is soft nontender. Staple lines intact. Objective Labs Result Diagrams: 10/27/18 06:20 10/25/18 04:36 Labs: Laboratory Results - last 24 hr 10/27/18 06:20 WBC 9.3 RBC 4.76 Hgb 14.0 Hct 40.1 L MCV 84.2 MCH 29.4 MCHC 34.9 RDW 13.5 Plt Count 212 Neut % (Auto) 82.8 H Lymph % (Auto) 6.3 L [place] % (Auto) 10.5 Eos % (Auto) 0.1 L Baso % (Auto) 0.3 Neut # (Auto) 7700 H Lymph # (Auto) 600 L [place] # (Auto) 1000 H Eos # (Auto) 0 Baso # (Auto) 0 Assessment & Plan Post-op Postoperative Procedures Operation Date: 10/23/18 10:15 Actual Procedures Side Surgeon p Cystoscopy Flexible Colby Oden MD p Laparoscopically Assisted Colostomy Closure - Aborted Colby Oden MD Operation Date: 10/23/18 16:15 Actual Procedures Side Surgeon p Cystoscopy Rigid, FLEXIBLE CYSTOSCOPY Darcy Charlton MD s Cystoscopy w/ Suprapubic Cath Placement Darcy Charlton MD Operation Date: 10/24/18 12:30 Actual Procedures Side Surgeon p Laparoscopy colostomy closure; closure of hepatic flexure Colby Oden MD Postoperative status narrative: Doing okay. Little concerned about the hiccups. Quality VTE Deep Vein Thrombosis/Pulmonary Embolism Present on Admission: No
[2018-10-27] MEDS: MAG HYDROX/ALUM/SIMETH 30 ML UDC PO (12:54)
[2018-10-27] MEDS: DEXTROSE 5%-NS W/KCL 20MEQ 1,000 ML 100 MEQ IV ×2 (12:55→23:47)
[2018-10-27] MEDS: MORPHINE 4 MG/ML INJ IV (13:53)
[2018-10-27] MEDS: chlorproMAZINE 25 MG in SODIUM CHLORIDE 0.9% 500 ML 1002 ML IV (14:02)
[2018-10-27] MEDS: ENOXAPARIN 40 MG/0.4 ML SYRINGE SUBCUT (21:29)
[2018-10-27] MEDS: ROPIVACAINE 8 MG IV (23:37)
[2018-10-28] VITALS (8 sets, daily range): BP systolic 144–160; BP diastolic 89–100; PULSE 66–90; RESP 16–20; TEMP 36.7–37.8; O2SAT 92–97
--- NOTE | 2018-10-28 | DI.RAD.S_ITS ---
PROCEDURE: XR ACUTE ABDOMEN SERIES INDICATIONS: post op ileus. now with emesis TECHNIQUE: One view chest and two views of the abdomen were acquired. COMPARISON: None. FINDINGS: Surgical changes and devices: Pigtail catheter projects over the lower pelvis. Multiple surgical skin andra project over the midline of the lower abdomen and pelvis. Chest: Streaky opacities in the lung bases compatible with atelectasis. Heart size is normal. No pleural effusions. No pneumoperitoneum. Abdomen: There is gaseous distention of colon. Multiple air-fluid levels are noted. There is a paucity of small bowel gas. There is free air under the diaphragms.. No suspicious calcifications. Visualized solid organ contours appear normal. Bones: No suspicious bony lesions. IMPRESSION: 1. Pneumoperitoneum. 2. Scattered air-fluid levels a paucity of small bowel gas which could represent early/partial small bowel obstruction or ileus. Dictated by: Ria Adame MD, PhD on 10/28/2018 at 15:16 Approved by: Ria Adame MD, PhD on 10/28/2018 at 15:22
--- NOTE | 2018-10-28 06:22 | PC.NURSE ---
Patient dozed intermittently, bupivicaine epidural infusing at 8ml/hr. Says it is controlling his pain, but he does feel bloated and c/o mild nausea, declined intervention. Bowel sounds hypoactive, denies passing flatus. VSS.
[2018-10-28] MEDS: MAG HYDROX/ALUM/SIMETH 30 ML UDC PO (08:10)
[2018-10-28] MEDS: PANTOPRAZOLE 40 MG VIAL 30 MG IV (08:15)
[2018-10-28] MEDS: GABAPENTIN 300 MG CAPSULE PO (08:15)
[2018-10-28] MEDS: BISACODYL 10 MG SUPP PR (08:15)
[2018-10-28] MEDS: SODIUM CHLORIDE 0.9% FLUSH 10 ML IV (08:16)
[2018-10-28] MEDS: ONDANSETRON 4 MG/2 ML INJ IV (08:27)
[2018-10-28] MEDS: DEXTROSE 5%-NS W/KCL 20MEQ 1,000 ML 100 MEQ IV ×2 (10:17→21:44)
--- NOTE | 2018-10-28 10:45 | PT.IIE ---
Current Diagnoses Encounter for attention to colostomy (10/23/18) Surgery Performed Operation Date: 10/23/18 10:15 Actual Procedures p Cystoscopy Flexible - Colby Oden MD p Laparoscopically Assisted Colostomy Closure - Aborted - Colby Oden MD Operation Date: 10/23/18 16:15 Actual Procedures p Cystoscopy Rigid, FLEXIBLE CYSTOSCOPY - Darcy Charlton MD s Cystoscopy w/ Suprapubic Cath Placement - Darcy Charlton MD Operation Date: 10/24/18 12:30 Actual Procedures p Laparoscopy colostomy closure; closure of hepatic flexure - Colby Oden MD Surgical History (Last Updated 10/21/18 @ 08:08 by Candy Meyer, RN) H/O: vasectomy (Acute) Hx of transurethral resection of prostate (Acute ~2011) Status post Abrahan procedure (Acute 05/27/18) Anesthesia (Resolved) H/O prostatectomy (Resolved ~2011) History of colonoscopy (Resolved ~05/27/18) History of radial keratotomy (Resolved ~10/23/87) Medical History (Last Updated 10/21/18 @ 08:11 by Candy Meyer RN) Achilles rupture, left (Acute ~2006) Arthritis (Acute) Former smoker (Acute) HLD (hyperlipidemia) (Acute) Pneumonia (Acute) UTI (urinary tract infection) (Acute) Urinary retention (Acute) Ankle pain (Chronic ~1996) BPH (benign prostatic hyperplasia) (Chronic ~2009) Colon polyps (Chronic) HTN (hypertension) (Chronic) History of urinary incontinence (Chronic ~2017) Low testosterone (Chronic ~2017) Osteoarthritis (Chronic ~2017) Sleep apnea (Chronic ~2017) Vision disorder (Chronic) Chicken pox (Resolved ~2017) Measles (Resolved ~1958) Shingles (Resolved) Physical Therapy Inpatient Evaluation/Re-Eval M1 PT/OT-IP Prior Functional Status Start: 10/28/18 12:26 Freq: NEEDED Status: Active Protocol: Document 10/28/18 10:45 AB (Rec: 10/28/18 13:08 AB [id number]) Medical Review Prior Functional Status Medical History Reviewed Yes Communication able to make needs known Mobility and Gait stated that he is independent with all mobilities and ambulation without AD Social History Household Members none Living Arrangements House Number of Floors (Floors) Two Floors Number of Stairs To Enter/Railing? Pt lives on a boat but stated that he rented a room to stay in upon d/c. has 6 steps to enter without rails has 20 steps with L rail ascending to get to the kitchen level Home Environment Standard Height Toilet Tub/Shower Home Equipment Straight Cane Hand Held Shower Grab Bars In Shower M2 PT-IP Current Condition Start: 10/28/18 12:26 Freq: NEEDED Status: Active Protocol: Document 10/28/18 10:45 AB (Rec: 10/28/18 13:08 AB [id number]) Physical Therapy Current Condition Current Condition Evaluation Date 10/28/18 Treatment Diagnosis colostomy closure; generalized weakness Onset Date 10/23/18 Precautions Abdominal Surgery Precautions Log Roll Lifting Restrictions Gait Belt above Incisional Area M3 PT-IP Subjective Start: 10/28/18 12:26 Freq: NEEDED Status: Active Protocol: Document 10/28/18 10:45 AB (Rec: 10/28/18 13:08 AB [id number]) Subjective Physical Therapy Visit Type Type Initial Evaluation Visit Start Time 10:45 Visit Stop Time 11:18 Total Visit Minutes 33 Number of RIB CHOPPER Visits 0 Physical Therapy Visit Comments Patient Comments pt agreeable to do PT Therapy Pain Assessment Pain When Pain Assessed At Rest Pain Present Pain Present Pain Reported Location Left Chest Intensity 5 Pain Management Techniques Timing of Activity with Medications M4 PT-IP Mobility and Gait Start: 10/28/18 12:26 Freq: NEEDED Status: Active Protocol: Document 10/28/18 10:45 AB (Rec: 10/28/18 13:08 AB [id number]) PT-Bed Mobility Assessment Rolling Type of Rolling Log Rolling Level of Assist Standby Assistance Supine to Sit Supine to Sit Standby Assistance Sit to Supine Sit to Supine Standby Assistance Scooting Scooting to Edge of Bed Standby Assistance Scooting Up and Down in Bed Standby Assistance PT-Transfer Assessment Sit to and From Stand Sit to and from Stand Standby Assistance Equipment Transfer Assistive Device None Gait Belt Orthotic/Prosthetic Devices or Brace: Yes Transfers Transfer Destination Bed Chair Transfer Technique Stand Step Pivot Transfer Ability Level of Assist Standby Assistance 1 Person Assistance Use of Upper Extremities Gait Assessment Gait Gait Assistance Required: Standby Assistance Contact Guard Assist Distance (Feet) 125 Assistive Devices Assistive Device None Gait Belt Straight Cane Orthotic/Prosthetic Devices or Brace: No Gait Deviations General Gait Pattern Antalgic Factors Limiting Gait Function Factors Limiting Gait Function Decreased Activity Tolerance Decreased Strength Pain Poor Balance Poor Safety Awareness Comments Gait Comments pt completed ambulation without AD 125 ft SBA to CGA but with gait deviation with slight LOB leaning to the L. pt stated that he just have more pain on his left. Assessed ambulation using SPC 150 ft SBA and pt was able to use SPC safely and improve with steadiness. PT-Balance Assessment Sitting Balance and Reactions Static Sitting Balance Ability Good Dynamic Sitting Balance Ability Good Standing Balance and Reactions Static Standing Balance Ability Good Dynamic Standing Balance Ability Fair Device Used without AD M5 PT-IP Objective Assessments Start: 10/28/18 12:26 Freq: NEEDED Status: Active Protocol: Document 10/28/18 10:45 AB (Rec: 10/28/18 13:08 AB [id number]) Orientation Orientation/Cognition Level of Alertness Alert Orientation Name Age Birthday Month Date Year Day of Week Place Situation Language Function Ability No Deficits Noted Safety Awareness Decreased Safety Awareness Gross Range of Motion Lower Extremity ROM Assessment Within Functional Limits Strength Lower Extremity Strength Assessment Within Functional Limits Coordination Assessment Gross Coordination Gross Coordination WNL Sensation Assessment Sensation Gross Sensation WNL Muscle Tone Muscle Tone WNL Yes M6 PT-IP Treatment Start: 10/28/18 12:26 Freq: NEEDED Status: Active Protocol: Document 10/28/18 10:45 AB (Rec: 10/28/18 13:08 AB [id number]) Physical Therapy Treatment Education Education Provided Precautions Safety M7 PT-IP Assessment and Plan Start: 10/28/18 12:26 Freq: NEEDED Status: Active Protocol: Document 10/28/18 10:45 AB (Rec: 10/28/18 13:08 AB [id number]) PT Summary Assessment and Plan Potential Rehabilitation Potential Good Status of Condition at Evaluation Stable Summary Impairments Pain ROM Strength Balance Coordination Sensation Tone Cognition Bed Mobility Transfers Gait Activity Tolerance Assessment Summary pt requiring SBA to CGA with mobility and will likely improve during hospital stay. pt presents with decrease activity tolerance affecting mobility. stair training will be conducted prior to d/c. Goals Bed Mobility Goal Independent Transfer Goal Independent Gait Goal Independent Gait Distance 250 Other Goals up/down 6 steps without rails up/down 20 steps with L rail ascending Days to Meet Goals 5 Frequency of Treatment Frequency Of Treatment Once a Day Treatment Plan Physical Therapy Treatment Plan Bed Mobility Training Transfer Training Gait Training Therapeutic Exercise Balance Retraining Post Op Education Discharge Planning Hot or Cold Pack Neuromuscular Re-ed Coordination Retraining Manual Therapy Other Recommendations and Next Treatment ambulation Focus Recommendations To Nursing Amount of Assist Needed 1 Person Assist Discharge Recommendations PT Discharge Recommendations Home
[2018-10-28] MEDS: ROPIVACAINE 8 MG IV (12:18)
--- NOTE | 2018-10-28 14:01 | PC.NURSE ---
pt with small bm (both incontinent and then in toilet) mucous-like and pink tinged-not painful for pt. dressing changed to supra-pubic catheter insertion site and wet-dry to ostomy site- he tolerated well. No c/o pain and occcassional nausea with moderate amount of emesis earlier this am. Epidural continues at 8ml/h and site is wnl, full intact cms- to radiology dept for abd series-
--- NOTE | 2018-10-28 15:11 | CM.DPC ---
DCP/continued: Reviewed chart. Spoke with RN/Radhika she reports patient continues with epidural. RN believes it might be removed tomorrow 10-29-18. Patient being followed by therapy and they continue to work with patient on stairs. It is anticipated that patient will d/c home when medically stable. P: CM team to continue to follow if d/c needs arise. Home when stable. DARIA Grant
--- NOTE | 2018-10-28 15:52 | OT.IP.EVAL ---
Current Diagnoses Encounter for attention to colostomy (10/23/18) Surgery Performed Operation Date: 10/23/18 10:15 Actual Procedures p Cystoscopy Flexible - Colby Oden MD p Laparoscopically Assisted Colostomy Closure - Aborted - Colby Oden MD Operation Date: 10/23/18 16:15 Actual Procedures p Cystoscopy Rigid, FLEXIBLE CYSTOSCOPY - Dacry Charlton MD s Cystoscopy w/ Suprapubic Cath Placement - Darcy Charlton MD Operation Date: 10/24/18 12:30 Actual Procedures p Laparoscopy colostomy closure; closure of hepatic flexure - Colby Oden MD Past Medical History (Last Updated 10/21/18 @ 08:11 by Candy Meyer, RN) Achilles rupture, left (Acute ~2006) Arthritis (Acute) Former smoker (Acute) HLD (hyperlipidemia) (Acute) Pneumonia (Acute) UTI (urinary tract infection) (Acute) Urinary retention (Acute) Ankle pain (Chronic ~1996) BPH (benign prostatic hyperplasia) (Chronic ~2009) Colon polyps (Chronic) HTN (hypertension) (Chronic) History of urinary incontinence (Chronic ~2017) Low testosterone (Chronic ~2017) Osteoarthritis (Chronic ~2017) Sleep apnea (Chronic ~2017) Vision disorder (Chronic) Chicken pox (Resolved ~2017) Measles (Resolved ~1958) Shingles (Resolved) Surgical History (Last Updated 10/21/18 @ 08:08 by Candy Meyer, RN) H/O: vasectomy (Acute) Hx of transurethral resection of prostate (Acute ~2011) Status post Abrahan procedure (Acute 05/27/18) Anesthesia (Resolved) H/O prostatectomy (Resolved ~2011) History of colonoscopy (Resolved ~05/27/18) History of radial keratotomy (Resolved ~10/23/87) Occupational Therapy Inpatient Evaluation/Re-Eval M1 PT/OT-IP Prior Functional Status Start: 10/28/18 12:26 Freq: NEEDED Status: Active Protocol: Document 10/28/18 15:52 EVELYNE (Rec: 10/28/18 16:26 EVELYNE [id number]) Medical Review Prior Functional Status Medical History Reviewed Yes Diet/Fluid Consistency Regular Communication WNL Mobility and Gait Pt stated that he is independent with all mobilities and ambulation without AD. Activities of Daily Living and IADL's Pt stated he is independent in all self care and IADLS. He lives on [address] [facility]. Prior Functional Level (Other details) Pt plans to rent a room in a house at d/c. 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 Social History Household Members none Living Arrangements House Number of Floors (Floors) Two Floors Number of Stairs To Enter/Railing? House has 6 steps to enter without rails. Pt's room on lower level with 12 stairs up to kitchen on main floor. Home Environment Standard Height Toilet Walk in Shower Home Equipment Straight Cane Hand Held Shower Grab Bars In Shower Employment Status Retired Additional Social History Comment Pt has girlfriend who lives and works in [facility], so not available to assist pt much. Pt states he has a few friends who could assist with IADLs after d/c M2 OT-IP Current Condition Start: 10/28/18 16:01 Freq: Status: Active Protocol: Document 10/28/18 15:52 PJM (Rec: 10/28/18 16:26 [facility] [id number]) Occupational Therapy Current Condition Current Condition Evaluation Date 10/28/18 Treatment Diagnosis decreased self care,mobility s /p reversal of colostomy, new suprapubic cath Diagnosis Onset Date 10/23/18 Post Operative Precautions Other Precautions multiple abdominal incisions, new suprapubic catheter (pt has had one before) M3 OT- IP Subjective and Pain Start: 10/28/18 16:01 Freq: Status: Active Protocol: Document 10/28/18 15:52 PJM (Rec: 10/28/18 16:26 [facility] [id number]) OT- Subjective Occupational Therapy Visit Type Type Initial Evaluation Visit Start Time 15:16 Visit Stop Time 15:52 Total Visit Minutes 36 Occupational Therapy Visit Comments Patient Comments I don't know how I will manage my meals. I am supposed to eat a soft diet when I go home. Patient/Caregiver Goals to resume normal activities and return to his boat OT Pain Assessment Pain When Pain Assessed After Treatment Pain Present Pain Present Pain Reported Location Abdomen Intensity 2 Scale Used hiccups, pt using meditation to relieve these Description Aching Acute Management Techniques Distraction M4 OT- IP ADL's Start: 10/28/18 16:01 Freq: Status: Active Protocol: Document 10/28/18 15:52 PJM (Rec: 10/28/18 16:26 [facility] [id number]) OT [id number] General Evaluation Self-Feeding Ability Independent Comments OT Self-Feeding Comments pt currently on clear liquid diet, has strong food preferences OT ADL-Grooming General Evaluation Grooming Ability Standby Assistance Areas Needing Assistance Retrieving/Set-up of Grooming Items Face Washing Comments OT Grooming Comments in bed or chair OT ADL-Oral Care General Eval Oral Care Ability Standby Assistance Areas of Assistance Brushing Teeth Retrieving/Set-Up of Items Comments Oral Care Comments in bed or chair OT ADL-Dressing General Eval Upper Body Dressing Ability Standby Assistance Lower Body Dressing Ability Maximum Assistance Areas Needing Assistance Socks Comments OT Dressing Comments Pt having difficulty reaching towards feet for dressing due to abdominal incisional pain and LLE stiffness. OT ADL-Toileting General Evaluation Toileting Ability Standby Assistance Devices Toileting Assistive Devices Urinal Comments OT Toileting Comments Pt is using urinal as well as drainage bag attached to suprapubic catheter. Pt familiar with use of leg bag and night drainage bag from previous suprapubic catheter use. OT ADL-Bathing Devices Bathing Equipment Shower Chair without Arms Comments OT Bathing Comments to be assessed; provided education re: shower seat options. He plans to borrow shower seat from [employer]. M5 OT- IP IADL's Start: 10/28/18 16:01 Freq: Status: Active Protocol: Document 10/28/18 15:52 PJM (Rec: 10/28/18 16:26 [facility] [id number]) OT-Instrumental Activities of Daily Living Deficits IADL Deficits Identified Deficits Home Safety Awareness Awareness of Need for Assistance at Home Good Awareness Home Safety Comments needs verbal cues to problem solve solutions to accessibility issues in rental house Medication Management Medication Management No Deficits Identified Money Management Money Management No Deficits Identified Meal Preparation Meal Preparation Comments pt having difficulty identifying soft foods he could prepare after d/c; pt would benefit from further advise from educational programming director Roof Panel Hanger Roof Panel Hanger Comments pt will need assist with statistical engineer after d/c Driving Driving Comments pt will need assist with transport while still on RX pain medication M6 OT- IP Functional Cognition Start: 10/28/18 16:01 Freq: Status: Active Protocol: Document 10/28/18 15:52 PJM (Rec: 10/28/18 16:26 [facility] [id number]) Cognitive Factors Limiting Selfcare Function Cognitive Ability Level of Alertness Alert Patient Orientation Name Age Birthday Month Date Year Day of Week Place Situation Attention Span Ability Capable of Focused Attention Capable of Sustained Attention Ability to Follow Commands Able to Follow One Step Commands Memory Description No Deficits Noted Safety Awareness No Deficits Noted Problem Solving Ability Needs Assist to Identify Solutions Cognitive Comments Cognitive Assessment Comments Appears WFL, but needs assist to identify solutions to increase independence while living alone after d/c OT- Vision and Hearing OT- Hearing Assessment OT- Hearing Assessment WFL OT- Vision Assessment Visual Acuity WFL Glasses All The Time Vision Assessment Comments pt wears trifocals; denies any recent vision changes M7 OT- IP Mobility and Balance Start: 10/28/18 16:01 Freq: Status: Active Protocol: Document 10/28/18 15:52 PJM (Rec: 10/28/18 16:26 PJ [id number]) OT-Transfer Assessment Comments Mobility Comments pt seen at bedside this session OT- Gait Assessment Gait Gait Assistance Required: Standby Assistance Comments Gait Ability Comments to bathroom and back per RN, pt using cane with P.T. OT- Balance Assessment Comments Other Balance Tests/Deviations/Treatment see P.T. notes : M8 OT- IP Objective Assessments Start: 10/28/18 16:01 Freq: Status: Active Protocol: Document 10/28/18 15:52 PJM (Rec: 10/28/18 16:26 PJ [id number]) OT Gross Range of Motion Upper Extremity Range of Motion Assessment Within Functional Limits OT Strength Upper Extremity Strength Assessment Within Functional Limits OT- Coordination Assessment Comments Coordination Comments BUE WFL OT-Muscle Tone Assessment Muscle Tone WNL Yes OT Sensation Assessment Comments Summary Comments Pt denies deficits in BUE's Edema Edema Present M9 OT- IP Assessment and Plan Start: 10/28/18 16:01 Freq: Status: Active Protocol: Document 10/28/18 15:52 PJM (Rec: 10/28/18 16:26 PJ [id number]) OT Summary Assessment and Plan Potential Rehabilitation Potential Good Analytic Complexity at Evaluation Low Summary Assessment Summary Low complexity OT assessment completed with emphasis on self care skills on this 63 yr old male admitted for colostomy reversal but found to have urinary blockage requiring placement of suprapubic catheter. Pt has persistent hiccups, abdominal pain and is still on clear liquid diet. Per chart notes, he will be on a soft diet at d/c Pt currently has performance deficits in activity tolerance, lower body dressing and bathing. Pt will benefit from 1-2 additional OT visits to address the goals below. Pt needs to be independent to discharge to his rental room in a house with 12 stairs to access the kitchen. Goals Grooming Goal Independent Dressing Goal Independent Long Handled Shoe Horn Brick Off Bearer Sock Aid Toileting Goal Independent Bathing Goal Independent Toilet Transfer Goal Independent Shower Transfer Goal Independent Walk-in Shower Shower Chair Grab Bars Patient/Caregiver Education Goal Demonstrate Post-Op Precautions Demonstrate Energy Conservation and Pacing OT-Other Goals Grooming to be done standing at sink. Days to Meet Goals 2 Frequency of Treatment Frequency Of Treatment Once a Day Treatment Plan OT Treatment Plan ADL Training Functional Mobility Patient/Family Education Discharge Planning Discharge Recommendations OT Discharge Recommendations Home with Assistance, follow up Other Discharge Recommendations pt states he will have intermittent assist from friends for statistical engineer, grocery shopping Home Equipment Needs shower chair
--- NOTE | 2018-10-28 18:38 | PM.PNPO.1 ---
Subjective Date Patient Seen: 10/28/18 Time Patient Seen: 12:38 Interval history: Patient postop colostomy closure. Feeling a little better. Had a bowel movement earlier today. Exam Vital Signs (past 8 hours): - 10/28/18 12:04 10/28/18 12:17 10/28/18 16:00 Temperature 98.1 F 98.8 F Pulse Rate 66 66 Respiratory Rate 16 20 Blood Pressure 144/91 H 160/100 H Pulse Oximetry 95 97 93 Oxygen Delivery Method Room Air Oxygen Flow Rate 0 Narrative Exam Narrative: Lungs clear. Heart regular rate and rhythm without murmur gallop. Abdomen is soft a little distended but not tender. Objective Labs Result Diagrams: 10/27/18 06:20 10/25/18 04:36 Assessment & Plan Post-op Postoperative Procedures Operation Date: 10/23/18 10:15 Actual Procedures Side Surgeon p Cystoscopy Flexible Colby Oden MD p Laparoscopically Assisted Colostomy Closure - Aborted Colby Oden MD Operation Date: 10/23/18 16:15 Actual Procedures Side Surgeon p Cystoscopy Rigid, FLEXIBLE CYSTOSCOPY Darcy Charlton MD s Cystoscopy w/ Suprapubic Cath Placement Darcy Charlton MD Operation Date: 10/24/18 12:30 Actual Procedures Side Surgeon p Laparoscopy colostomy closure; closure of hepatic flexure Colby Oden MD Postoperative status: doing well Postoperative plan narrative: Labs in the a.m.. Will close his ostomy site today. Quality VTE Deep Vein Thrombosis/Pulmonary Embolism Present on Admission: No
[2018-10-28] MEDS: ENOXAPARIN 40 MG/0.4 ML SYRINGE SUBCUT (21:43)
[2018-10-29] VITALS (9 sets, daily range): BP systolic 136–168; BP diastolic 88–91; PULSE 51–68; RESP 16–20; TEMP 36.8–37.2; O2SAT 91–98
[2018-10-29] MEDS: ROPIVACAINE 8 MG IV (00:23)
--- NOTE | 2018-10-29 06:17 | PC.NURSE ---
Patient has been up to [facility] frequently with loose green/brown stools, urine mixed with stool, no output into suprapubic catheter. Burping with intermittent nausea and c/o reflux every time he is up, no vomitting, declines offer of antiemetic or Maalox. Bupivicaine epidural infusion at 8ml/hr.
[2018-10-29] MEDS: DEXTROSE 5%-NS W/KCL 20MEQ 1,000 ML 100 MEQ IV (07:57)
--- NOTE | 2018-10-29 09:21 | OT.IP.TRT ---
Current Diagnoses Encounter for attention to colostomy (10/23/18) Surgery Performed Operation Date: 10/23/18 10:15 Actual Procedures p Cystoscopy Flexible - Colby Oden MD p Laparoscopically Assisted Colostomy Closure - Aborted - Colby Oden MD Operation Date: 10/23/18 16:15 Actual Procedures p Cystoscopy Rigid, FLEXIBLE CYSTOSCOPY - Darcy Charlton MD s Cystoscopy w/ Suprapubic Cath Placement - Darcy Charlton MD Operation Date: 10/24/18 12:30 Actual Procedures p Laparoscopy colostomy closure; closure of hepatic flexure - Colby Oden MD Occupational Therapy Treatment Note M2 OT-IP Current Condition Start: 10/28/18 16:01 Freq: Status: Active Protocol: Document 10/28/18 15:52 PJM (Rec: 10/28/18 16:26 PJM [id number]) Occupational Therapy Current Condition Current Condition Evaluation Date 10/28/18 Treatment Diagnosis decreased self care,mobility s /p reversal of colostomy, new suprapubic cath Diagnosis Onset Date 10/23/18 Post Operative Precautions Other Precautions multiple abdominal incisions, new suprapubic catheter (pt has had one before) M3 OT- IP Subjective and Pain Start: 10/28/18 16:01 Freq: Status: Active Protocol: Document 10/29/18 09:21 PJM (Rec: 10/29/18 14:06 PJM [id number]) OT- Subjective Occupational Therapy Visit Type Type Treatment Note Visit Start Time 09:05 Visit Stop Time 09:21 Total Visit Minutes 16 Notes Pt's s.o. here for education this session. Pt RN, pt's diet advanced to liquids from clear liquids, so pt will have more food choices. Occupational Therapy Visit Comments Patient Comments I haven't had any hiccups for 4 hrs. When I get them I get a lot of acid reflux and it's hard to eat. Patient/Caregiver Goals to get rid of hiccups and stop throwing up so he can eat more OT Pain Assessment Pain When Pain Assessed After Treatment Pain Present Pain Present Denied Pain M4 OT- IP ADL's Start: 10/28/18 16:01 Freq: Status: Active Protocol: Document 10/29/18 09:21 PJM (Rec: 10/29/18 14:06 PJM [id number]) OT [id number]-[id number] General Evaluation Self-Feeding Ability Independent OT ADL-Grooming General Evaluation Grooming Ability Independent Comments OT Grooming Comments standing at sink OT ADL-Oral Care General Eval Oral Care Ability Independent Comments Oral Care Comments standing at sink OT ADL-Dressing General Eval Lower Body Dressing Ability Independent Areas Needing Assistance Underpants/Brief Socks Comments OT Dressing Comments pt able to completed lower body dressing with no adaptive equipt required OT ADL-Toileting General Evaluation Toileting Ability Independent Areas Needing Assistance Manage Clothing Perform Perineal Hygiene Devices Toileting Assistive Devices Commode Comments OT Toileting Comments pt using BSC at times due to bowel urgency OT ADL-Bathing Bathing Type Bathing Type Shower Devices Bathing Equipment Hand Held Shower Sprayer Shower Chair without Arms Comments OT Bathing Comments PROFESSIONAL BASS FISHERMAN to assist pt with shower today once epidural catheter removed. S.O. has obtained shower seat for pt use in rental house after d/c. Shower stall has hand held shower. No deficits identified that would interfere with pt completing shower with this equipt. M5 OT- IP IADL's Start: 10/28/18 16:01 Freq: Status: Active Protocol: Document 10/29/18 09:21 PJM (Rec: 10/29/18 14:06 PJM [id number]) OT-Instrumental Activities of Daily Living Deficits IADL Deficits Identified Deficits Home Safety Awareness Awareness of Need for Assistance at Home Good Awareness Ability to Problem Solve Emergency Able to Problem Solve Situations Medication Management Medication Management No Deficits Identified Money Management Money Management No Deficits Identified Meal Preparation Meal Preparation Caregiver Provides Assist Meal Preparation Comments Per S.O. , they have made arrangements for pt to stay on main floor of rental house so he does not have use 12 stairs to get to the kitchen. Friends to assist pt with grocery shopping. Production Technologist Production Technologist Caregiver Provides Assist Production Technologist Comments pt will need assist with lead pourer Driving Driving Caregiver Provides Assist Driving Comments friends to assist unitl pt able. M6 OT- IP Functional Cognition Start: 10/28/18 16:01 Freq: Status: Active Protocol: Document 10/28/18 15:52 PJM (Rec: 10/28/18 16:26 PJM [id number]) Cognitive Factors Limiting Selfcare Function Cognitive Ability Level of Alertness Alert Patient Orientation Name Age Birthday Month Date Year Day of Week Place Situation Attention Span Ability Capable of Focused Attention Capable of Sustained Attention Ability to Follow Commands Able to Follow One Step Commands Memory Description No Deficits Noted Safety Awareness No Deficits Noted Problem Solving Ability Needs Assist to Identify Solutions Cognitive Comments Cognitive Assessment Comments Appears WFL, but needs assist to identify solutions to increase independence while living alone after d/c OT- Vision and Hearing OT- Hearing Assessment OT- Hearing Assessment WFL OT- Vision Assessment Visual Acuity WFL Glasses All The Time Vision Assessment Comments pt wears trifocals; denies any recent vision changes M7 OT- IP Mobility and Balance Start: 10/28/18 16:01 Freq: Status: Active Protocol: Document 10/29/18 09:21 PJM (Rec: 10/29/18 14:06 PJ [id number]) OT-Transfer Assessment Sit to and From Stand Sit to and from Stand Independent Transfers Transfer Ability Independent Technique Transfer Destination Bedside Commode Transfer Technique Stand Step Pivot Devices Transfer Assistive Devices None OT- Gait Assessment Comments Gait Ability Comments see P.T. notes OT- Balance Assessment Sitting Balance and Reactions Static Sitting Balance Ability Good Dynamic Sitting Balance Ability Good Standing Balance and Reactions Static Standing Balance Ability Good Dynamic Standing Balance Ability Good Comments Other Balance Tests/Deviations/Treatment during lower body clothing : management M8 OT- IP Objective Assessments Start: 10/28/18 16:01 Freq: Status: Active Protocol: Document 10/28/18 15:52 PJM (Rec: 10/28/18 16:26 PJ [id number]) OT Gross Range of Motion Upper Extremity Range of Motion Assessment Within Functional Limits OT Strength Upper Extremity Strength Assessment Within Functional Limits OT- Coordination Assessment Comments Coordination Comments BUE WFL OT-Muscle Tone Assessment Muscle Tone WNL Yes OT Sensation Assessment Comments Summary Comments Pt denies deficits in BUE's Edema Edema Present M9 OT- IP Assessment and Plan Start: 10/28/18 16:01 Freq: Status: Active Protocol: Document 10/29/18 09:21 PJM (Rec: 10/29/18 14:06 [facility] [id number]) OT Summary Assessment and Plan Summary Progress Towards Goals Goals Met Assessment Summary Pt making good progress with mobility and self care skills in room. All OT goals achieved for this admission. Pt plans to d/c to rental house with single floor living arrangements and assist from friends when medically stable and clears P.T. No further OT services needed. Frequency of Treatment Frequency Of Treatment Discharge Discharge Recommendations OT Discharge Recommendations Home with Assistance
[2018-10-29 09:49] LABS: Add Manual Diff / Slide Review NO; Basophils Absolute Auto 0 /uL (0-100); Basophils Percent Auto 0.4 % (0-2); Eosinophils Absolute Auto 200 /uL (0-450); Eosinophils Percent Auto 2.9 % (2-4); Hematocrit 42.8 % (41-53); Hemoglobin 14.7 g/dL (13.5-17.5); Lymphocytes Absolute Auto 1200 /uL (1100-4500); Lymphocytes Percent Auto 13.6 % (25-40); Mean Corpuscular HGB Conc 34.3 % (30-36); Mean Corpuscular Volume 84.6 fL (80-100); Monocytes Absolute Auto 1000 /uL (0-900); Monocytes Percent Auto 11.8 % (3-14); Neutrophils Absolute Auto 6100 /uL (1500-7000); Neutrophils Percent Auto 71.3 % (50-75); Platelet Count 308 X10^3/uL (150-400); Red Blood Cell Count 5.06 X10^6/uL (4.5-5.9); Red Cell Distribution Width 13.9 % (11.6-14.8); White Blood Cell Count 8.5 X10^3/uL (4.5-11.0)
[2018-10-29 10:03] LABS: BUN Creatinine Ratio 14.3 (6-22); Blood Urea Nitrogen 10 mg/dL (9-20); Calcium 8.3 mg/dL (8.4-10.2); Carbon Dioxide 23 mmol/L (22-32); Chloride 102 mmol/L (98-107); Estimated Glomerular Filt Rate > 60.0 mL/min (>60); Glucose 119 mg/dL (80-110); HEMOLYSIS < 15 (0-50); Potassium 3.2 mmol/L (3.4-5.1); Sodium 135 mmol/L (137-145)
--- NOTE | 2018-10-29 10:49 | PC.NURSE ---
Addendum entered by Radhika Davis R.N. 10/29/18 14:16: pt with supra pubic cath removed by dr banuelos due to being displaced and almost completely out of bladder- he has been voiding via ureter- frequency of loose stools has slowed and he is tolerating full liquids well- iv access removed due to length of vein cannulation- unable to restart another line- has not received anything iv other than protonix for several shifts Original Note: epidural removed - end of cath intact- no difficulties noted - lovenox held this am and pt doing well
--- NOTE | 2018-10-29 11:57 | PT.IPTN ---
Current Diagnoses Encounter for attention to colostomy (10/23/18) Surgery Performed Operation Date: 10/23/18 10:15 Actual Procedures p Cystoscopy Flexible - Colby Oden MD p Laparoscopically Assisted Colostomy Closure - Aborted - Colby Oden MD Operation Date: 10/23/18 16:15 Actual Procedures p Cystoscopy Rigid, FLEXIBLE CYSTOSCOPY - Darcy Charlton MD s Cystoscopy w/ Suprapubic Cath Placement - Darcy Charlton MD Operation Date: 10/24/18 12:30 Actual Procedures p Laparoscopy colostomy closure; closure of hepatic flexure - Colby Oden MD Physical Therapy Treatment Note M2 PT-IP Current Condition Start: 10/28/18 12:26 Freq: NEEDED Status: Active Protocol: Document 10/28/18 10:45 AB (Rec: 10/28/18 13:08 AB [id number]) Physical Therapy Current Condition Current Condition Evaluation Date 10/28/18 Treatment Diagnosis colostomy closure; generalized weakness Onset Date 10/23/18 Precautions Abdominal Surgery Precautions Log Roll Lifting Restrictions Gait Belt above Incisional Area M3 PT-IP Subjective Start: 10/28/18 12:26 Freq: NEEDED Status: Active Protocol: Document 10/29/18 11:44 SA (Rec: 10/29/18 11:57 SA [id number]) Subjective Physical Therapy Visit Type Type Treatment Note Visit Start Time 10:42 Visit Stop Time 11:05 Total Visit Minutes 23 Number of CEILING CLEANER Visits 1 Physical Therapy Visit Comments Patient Comments Pt agreeable to PT, supportive friend present during session . Patient Goals To d/c to house and eventually back to [place] that he lives [place] . Therapy Pain Assessment Pain When Pain Assessed During Mobility Pain Present Pain Present Pain Reported Location Left Chest Intensity 2 Pain Management Techniques Timing of Activity with Medications M4 PT-IP Mobility and Gait Start: 10/28/18 12:26 Freq: NEEDED Status: Active Protocol: Document 10/29/18 11:44 SA (Rec: 10/29/18 11:57 SA [id number]) PT-Bed Mobility Assessment Rolling Type of Rolling Log Rolling Roll to Right Level of Assist Standby Assistance Supine to Sit Supine to Sit Standby Assistance Sit to Supine Sit to Supine Standby Assistance Scooting Scooting to Edge of Bed Standby Assistance Scooting Up and Down in Bed Standby Assistance PT-Transfer Assessment Sit to and From Stand Sit to and from Stand Standby Assistance Equipment Transfer Assistive Device None Gait Belt Orthotic/Prosthetic Devices or Brace: Yes Transfers Transfer Destination Bed Chair Toilet Transfer Technique Stand Step Pivot Transfer Ability Level of Assist Standby Assistance Comments Mobility Comments Pt SBA with all mobility tasks , reports very little pain but has been having some nausea. Gait Assessment Gait Gait Assistance Required: Standby Assistance Contact Guard Assist Distance (Feet) 250 Assistive Devices Assistive Device Gait Belt Straight Cane Orthotic/Prosthetic Devices or Brace: No Gait Deviations General Gait Pattern Antalgic Factors Limiting Gait Function Factors Limiting Gait Function Decreased Activity Tolerance Decreased Strength Comments Gait Comments Gait training in halls with SPC to/from stairs, cues for pacing and safety. Pt had one minor LOB with turning but able to self recover. Stair Climbing Assessment Evaluation Level of Assist On Stairs Contact Guard Assistance 1 Person Assistance Devices Stair Climbing Assistive Devices Straight Cane Technique/Endurance Stair Climbing Direction Ascend and Descend Stair Climbing Technique Step to Step Number of Steps Climbed 16 Query Text: Stair Climbing Set # Repetitions (reps) 1 Comments Stair Climbing Comments Pt used SPC in RUE and L rail for up/down 16 stairs with CGA and cues for safety. Pt has 6 steps to enter home and another 6 to get to living level. Pt quite fatigued after stairs. PT-Balance Assessment Comments Other Balance Tests/Deviations/Treatment Pt slightly impulsive and : moves quickly, needs cues for pacing and safety. M5 PT-IP Objective Assessments Start: 10/28/18 12:26 Freq: NEEDED Status: Active Protocol: Document 10/28/18 10:45 AB (Rec: 10/28/18 13:08 AB [id number]) Orientation Orientation/Cognition Level of Alertness Alert Orientation Name Age Birthday Month Date Year Day of Week Place Situation Language Function Ability No Deficits Noted Safety Awareness Decreased Safety Awareness Gross Range of Motion Lower Extremity ROM Assessment Within Functional Limits Strength Lower Extremity Strength Assessment Within Functional Limits Coordination Assessment Gross Coordination Gross Coordination WNL Sensation Assessment Sensation Gross Sensation WNL Muscle Tone Muscle Tone WNL Yes M6 PT-IP Treatment Start: 10/28/18 12:26 Freq: NEEDED Status: Active Protocol: Document 10/29/18 11:44 SA (Rec: 10/29/18 11:57 SA [id number]) Physical Therapy Treatment Exercises Exercises Ankle Pumps Education Education Provided Precautions Safety M7 PT-IP Assessment and Plan Start: 10/28/18 12:26 Freq: NEEDED Status: Active Protocol: Document 10/29/18 11:44 SA (Rec: 10/29/18 11:57 SA [id number]) PT Summary Assessment and Plan Potential Rehabilitation Potential Good Status of Condition at Evaluation Stable Summary Assessment Summary Pt progressing well with decreased pain and nausea. Able to manage gait and stairs with SPC and CGA, receptive to safety education. Frequency of Treatment Frequency Of Treatment Once a Day Treatment Plan Physical Therapy Treatment Plan Bed Mobility Training Transfer Training Gait Training Therapeutic Exercise Balance Retraining Post Op Education Discharge Planning Hot or Cold Pack Neuromuscular Re-ed Coordination Retraining Manual Therapy Recommendations To Nursing Amount of Assist Needed 1 Person Assist Discharge Recommendations PT Discharge Recommendations Home
[2018-10-29] MEDS: PANTOPRAZOLE 40 MG VIAL 30 MG IV (13:07)
[2018-10-29] MEDS: SODIUM CHLORIDE 0.9% FLUSH 10 ML IV (13:08)
--- NOTE | 2018-10-29 13:42 | PM.CHAP ---
Met with Maximino to discuss his estrangement from his daughter Lydia, and his interest in prayer. We talked and prayed together.
--- NOTE | 2018-10-29 19:32 | PM.PNPO.1 ---
Subjective Date Patient Seen: 10/29/18 Time Patient Seen: 08:32 Interval history: Patient had his wound closed yesterday. He is feeling all right. Still pelvis in gas and moving his bowels. He is afraid to eat because it causes hiccups he says. Exam Vital Signs (past 8 hours): - 10/29/18 11:58 10/29/18 14:08 10/29/18 16:13 Temperature 98.6 F 98.9 F Pulse Rate 63 51 L Respiratory Rate 20 18 Blood Pressure 168/88 H 136/88 Pulse Oximetry 98 97 94 10/29/18 18:00 Temperature Pulse Rate Respiratory Rate Blood Pressure Pulse Oximetry 95 Oxygen Delivery Method Room Air Oxygen Flow Rate 0 Narrative Exam Narrative: Lungs are clear. Heart regular rate and rhythm without murmur gallop. Abdomen is soft mildly distended nontender. Unfortunately his suprapubic tube was backed out at the skin level and he is urinating. I asked for a postvoid residual and it was 36 cc. Objective Labs Result Diagrams: 10/29/18 09:26 10/29/18 09:26 Labs: Laboratory Results - last 24 hr 10/29/18 10/29/18 09:26 09:26 WBC 8.5 RBC 5.06 Hgb 14.7 Hct 42.8 MCV 84.6 MCH 29.0 MCHC 34.3 RDW 13.9 Plt Count 308 Neut % (Auto) 71.3 Lymph % (Auto) 13.6 L [place] % (Auto) 11.8 Eos % (Auto) 2.9 Baso % (Auto) 0.4 Neut # (Auto) 6100 Lymph # (Auto) 1200 [place] # (Auto) 1000 H Eos # (Auto) 200 Baso # (Auto) 0 Sodium 135 L Potassium 3.2 L Chloride 102 Carbon Dioxide 23 BUN 10 Creatinine 0.70 Estimated GFR > 60.0 BUN/Creatinine Ratio 14.3 Glucose 119 H Calcium 8.3 L Assessment & Plan Post-op Postoperative Procedures Operation Date: 10/23/18 10:15 Actual Procedures Side Surgeon p Cystoscopy Flexible Colby Oden MD p Laparoscopically Assisted Colostomy Closure - Aborted Colby Oden MD Operation Date: 10/23/18 16:15 Actual Procedures Side Surgeon p Cystoscopy Rigid, FLEXIBLE CYSTOSCOPY Darcy Charlton MD s Cystoscopy w/ Suprapubic Cath Placement Darcy Charlton MD Operation Date: 10/24/18 12:30 Actual Procedures Side Surgeon p Laparoscopy colostomy closure; closure of hepatic flexure Colby Oden MD Postoperative status narrative: The patient is doing well. His suprapubic tube is out was removed. he is urinating and appears to be adequate. I talked with Dr. Charlton his urologist who placed a suprapubic tube for me. He felt that since he is able to urinate and appears to be urinating adequately we can leave the tube out. He will follow in my up in his office about a week after discharge. Postoperative plan narrative: Will advance diet as tolerated. Probable discharge tomorrow or the next day. Interestingly, patient has a fair amount of free air on his plain x-rays from yesterday morning. He is absolutely asymptomatic so this must just be air from his operative procedure. it might explain why she has had the hiccups if he has had distention of his diaphragms from extraintestinal air. This should resolve on its own spontaneously. Patient's epidural catheter was removed today. Quality VTE Deep Vein Thrombosis/Pulmonary Embolism Present on Admission: No
[2018-10-29] MEDS: ENOXAPARIN 40 MG/0.4 ML SYRINGE SUBCUT (21:08)
[2018-10-30] VITALS (7 sets, daily range): BP systolic 139–151; BP diastolic 77–90; PULSE 56–63; RESP 13–18; TEMP 36.9–37.3; O2SAT 93–96
[2018-10-30 11:26] LABS: Appearance Urine UA CLEAR; Bilirubin Urine UA NEGATIVE (NEGATIVE); Color Urine UA YELLOW; Glucose Urine UA NEGATIVE (Negative); Ketones Urine UA TRACE (NEGATIVE); Leukocyte Esterase Urine UA NEGATIVE (NEGATIVE); Nitrite Urine UA NEGATIVE (Negative); Occult Blood Urine UA TRACE-INTACT (Negative); Protein Urine UA NEGATIVE (Negative); Specific Gravity Urine UA 1.015 (1.000-1.035); Urobilinogen Urine UA 0.2 E.U./dL (0.2)
--- NOTE | 2018-10-30 11:32 | PM.CHAP ---
visit with patient to discuss discharge. He is very nervous about returning home because he has only himself. He would rather have one more day of solid food to make sure everything is working properly. We discussed end of life issues at his request. He reports feeling much more hopeful.HAYDEN
[2018-10-30 11:47] LABS: RBC Urine 1-5/HPF (0-5/HPF); Squamous Epithelial Cell Urine 0-1 /HPF (0-5/HPF); WBC Urine 1-5/HPF (0-5/HPF)
[2018-10-30 11:48] LABS: Amorphous Sediment Urine 1+; Bacteria Urine Few (2-10); Culture Indicated Urine Cult Not Indicated; Mucus Urine 1+ (Negative)
--- NOTE | 2018-10-30 12:05 | PT.IPTN ---
Current Diagnoses Encounter for attention to colostomy (10/23/18) Surgery Performed Operation Date: 10/23/18 10:15 Actual Procedures p Cystoscopy Flexible - Colby Oden MD p Laparoscopically Assisted Colostomy Closure - Aborted - Colby Oden MD Operation Date: 10/23/18 16:15 Actual Procedures p Cystoscopy Rigid, FLEXIBLE CYSTOSCOPY - Darcy Charlton MD s Cystoscopy w/ Suprapubic Cath Placement - Darcy Charlton MD Operation Date: 10/24/18 12:30 Actual Procedures p Laparoscopy colostomy closure; closure of hepatic flexure - Colby Oden MD Physical Therapy Treatment Note M2 PT-IP Current Condition Start: 10/28/18 12:26 Freq: NEEDED Status: Active Protocol: Document 10/28/18 10:45 AB (Rec: 10/28/18 13:08 AB [id number]) Physical Therapy Current Condition Current Condition Evaluation Date 10/28/18 Treatment Diagnosis colostomy closure; generalized weakness Onset Date 10/23/18 Precautions Abdominal Surgery Precautions Log Roll Lifting Restrictions Gait Belt above Incisional Area M3 PT-IP Subjective Start: 10/28/18 12:26 Freq: NEEDED Status: Active Protocol: Document 10/30/18 11:57 SA (Rec: 10/30/18 12:05 [id number]) Subjective Physical Therapy Visit Type Type Discharge Summary Visit Start Time 11:20 Visit Stop Time 11:45 Total Visit Minutes 25 Number of BUSINESS ENTERPRISE OFFICER Visits 2 Physical Therapy Visit Comments Patient Comments Pt up in chair, agreeable to PT. Patient Goals To d/c to house and eventually back to boat that he lives [place] . Therapy Pain Assessment Pain When Pain Assessed During Mobility Pain Present Pain Present Pain Reported Location Abdomen Intensity 3 Scale Used Numeric (1 - 10) Pain Management Techniques Modification of Treatment Re-positioning M4 PT-IP Mobility and Gait Start: 10/28/18 12:26 Freq: NEEDED Status: Active Protocol: Document 10/30/18 11:57 SA (Rec: 10/30/18 12:05 [id number]) PT-Transfer Assessment Sit to and From Stand Sit to and from Stand Standby Assistance Equipment Transfer Assistive Device None Gait Belt Orthotic/Prosthetic Devices or Brace: Yes Transfers Transfer Destination Bed Chair Transfer Technique Stand Step Pivot Transfer Ability Level of Assist Standby Assistance Comments Mobility Comments PT SBA with mobility tasks, cues for pacing and safety. Pt with c/o abdominal pain/ discomfort rating it as 3/10 Gait Assessment Gait Gait Assistance Required: Standby Assistance Distance (Feet) 250 Assistive Devices Assistive Device Gait Belt Straight Cane Orthotic/Prosthetic Devices or Brace: No Gait Deviations General Gait Pattern Antalgic Factors Limiting Gait Function Factors Limiting Gait Function Decreased Activity Tolerance Decreased Strength Comments Gait Comments GAit training in halls with SPC and SBA, no LOB noted today and pt with improving endurance and gait quality. Stair Climbing Assessment Evaluation Level of Assist On Stairs Standby Assistance Contact Guard Assistance 1 Person Assistance Devices Stair Climbing Assistive Devices Straight Cane Technique/Endurance Stair Climbing Direction Ascend and Descend Stair Climbing Technique Step to Step Number of Steps Climbed 16 Query Text: Stair Climbing Set # Repetitions (reps) 1 Functional Assessments Functional Tests Timed Up and Go 9 seconds Other Functional Tests Performed Pt 9 seconds with TUG test which relates to low risk of falls for age group, test completed with SPC. M5 PT-IP Objective Assessments Start: 10/28/18 12:26 Freq: NEEDED Status: Active Protocol: Document 10/28/18 10:45 AB (Rec: 10/28/18 13:08 AB [id number]) Orientation Orientation/Cognition Level of Alertness Alert Orientation Name Age Birthday Month Date Year Day of Week Place Situation Language Function Ability No Deficits Noted Safety Awareness Decreased Safety Awareness Gross Range of Motion Lower Extremity ROM Assessment Within Functional Limits Strength Lower Extremity Strength Assessment Within Functional Limits Coordination Assessment Gross Coordination Gross Coordination WNL Sensation Assessment Sensation Gross Sensation WNL Muscle Tone Muscle Tone WNL Yes M6 PT-IP Treatment Start: 10/28/18 12:26 Freq: NEEDED Status: Active Protocol: Document 10/30/18 11:57 SA (Rec: 10/30/18 12:05 [email or web address]) Physical Therapy Treatment Exercises Exercises Ankle Pumps Gluteal Sets Heel Slides Education Education Provided Precautions Safety M7 PT-IP Assessment and Plan Start: 10/28/18 12:26 Freq: NEEDED Status: Active Protocol: Document 10/30/18 11:57 SA (Rec: 10/30/18 12:05 [id number]) PT Summary Assessment and Plan Potential Rehabilitation Potential Good Status of Condition at Evaluation Stable Summary Progress Towards Goals Goals Met Assessment Summary Pt has progressed well and met functional goals, using SPC safely and has personal SPC. Navigates stairs and functional ambulation well. Frequency of Treatment Frequency Of Treatment Discharge Recommendations To Nursing Amount of Assist Needed 1 Person Assist Discharge Recommendations PT Discharge Recommendations Home
--- NOTE | 2018-10-30 15:47 | P.DS_ITS ---
History of Present Illness Date Patient Seen: 10/30/18 Time Patient Seen: 15:29 Chief complaint: LAPAROSCOPY COLOSTOMY CLOSURE Narrative: Patient is a gentleman who had perforated diverticulitis had a an end colostomy and Abrahan's procedure in the past. He was brought in for colostomy closure. Because of a history of chest pain E underwent a preoperative cardiac evaluation and that did not show any evidence of cardiac ischemia. Discharge Providers Date of admission: 10/23/18 09:37 Discharge Date: 10/30/18 Primary care physician: SHAYY Balderrama Consults: 10/21/18 08:32 Consult to Pastoral Services Routine Comment: Colostomy closure 10/23/18 Consult to Respiratory Therapy Evaluate & Treat Comment: Stop Bang Assess positive Physician Instructions: Evaluate and treat 10/23/18 19:46 Consult to Discharge Planning Routine Comment: 10/24/18 18:04 Consult to Discharge Planning Routine Comment: 10/27/18 12:46 Consult to Occupational Therapy Evaluate & Treat Comment: Physician Instructions: Evaluate and treat Consult to Physical Therapy Evaluate & Treat Comment: Physician Instructions: Evaluate and Treat Discharge provider: Colby Oden MD Summary Discharge Diagnosis: History of perforated diverticulitis with end colostomy and Abrahan's procedure Acute Chest pain most likely really musculoskeletal with to which she responded with pain medicine. Chronic Urinary tract obstruction secondary to a complication of a prostate operation done in the distant past at another facility. Acute Moderate protein calorie malnutrition based on the fact that he has been NPO for multiple days and his albumin has deteriorated as has his sugar and protein stores. Hiccups acute Hospital Course: The patient was taken to the operating room to perform a colostomy closure. We could not get a Moe placed and he had to have a suprapubic tube placed by Dr. Charlton. This delayed the operation by day. He was taken back to the operating room after having oral antibiotics an additional bowel prep in order to close his colostomy. The operation went well. His postoperative course was rather smooth. His suprapubic catheter did come out on its own. The patient however was able to void and had post residuals of about [address] Charlton would like to see him in the office in about a week. He did not feel it necessary to replace the catheter. His epidural catheter was removed the day prior to his discharge. He tolerated this well. The patient had an open wound that was treated with wound care. It was sewn closed on postoperative day 5 which she tolerated well. A discharge there was no evidence of cellulitis. He will be seeded by office next week a and he will have to call Dr. Charlton to set up an appointment with him. Status at Discharge Cognitive/behavioral status at discharge: oriented Functional status at discharge: independent ambulation Overall status at discharge: patient is progressing back to baseline Exam Vital Signs (past 8 hours): - 10/30/18 08:00 Temperature 98.5 F Pulse Rate 56 L Respiratory Rate 13 Blood Pressure 151/87 H Pulse Oximetry 96 Oxygen Delivery Method Room Air Oxygen Flow Rate 0 Narrative Exam Narrative: Lungs are clear to auscultation with excellent effort. Heart regular rate and rhythm without murmur gallop. Abdomen is soft nontender. Incisions are all intact. No cellulitis. Objective Labs Result Diagrams: 10/29/18 09:26 10/29/18 09:26 Labs: Laboratory Results - last 24 hr 10/30/18 10:25 Urine Color Yellow Urine Appearance Clear Urine pH 7.0 Ur Specific [place] 1.015 Urine Protein Negative Urine Glucose (UA) Negative Urine Ketones Trace H Urine Occult Blood Trace-intact Urine Nitrate Negative Urine Bilirubin Negative Urine Urobilinogen 0.2 Ur Leukocyte Esterase Negative Urine RBC 1-5/hpf Urine WBC 1-5/hpf Ur Squamous Epith Cells 0-1 /hpf Amorphous Sediment 1+ Urine Bacteria Few (2-10) H Urine Mucus 1+ H Ur Culture Indicated? Cult not indicated Discharge Plan Discharge Plan Patient Disposition: Home Discharge Med Rec/Prescriptions Prescriptions: New hydrocodone-acetaminophen [[place]] 5-325 mg tablet 1 tab PO Q4-6H PRN (Reason: pain) Qty: 14 RF: 0 Continued testosterone 1 % (50 mg/5 gram) gel in packet 1 packet Transdermal DAILY PRN (Reason: low energy) RF: 0 erythromycin 500 mg tablet See Rx Instructions PO .COMPLEX Qty: 6 RF: 0 ascorbic acid (vitamin C) [Vitamin C] 1,000 mg Tablet 1,000 mg PO DAILY RF: 0 flaxseed oil 1,000 mg Capsule 1,000 mg PO DAILY Qty: 0 RF: 0 magnesium 250 mg Tablet 250 mg PO DAILY Qty: 0 RF: 0 multivitamin Capsule 1 cap PO DAILY Qty: 0 RF: 0 Glucosamine-Chondr (MSM-hyal) 500-66.7-500-2 mg Tablet 1 tab PO DAILY Qty: 0 RF: 0 Follow up/Referrals: Zaira Duran ARNP [Primary Care Provider] - Provider Discharge Instructions Diet: Diet as Tolerated Skin/Wound/Dressing Care Report to your healthcare provider any signs of infection, such as:: chills, fever, night sweats, increased pain, unusual drainage and unusual redness Visit Report/Discharge Packet Instructions: DI for Colostomy or Ileostomy Reversal, DI for Colectomy Discharge Data Primary Care Provider: Zaira Duran Attending Provider: Colby Oden Admit Date/Time: 10/23/18 09:37 Quality VTE Deep Vein Thrombosis/Pulmonary Embolism Present on Admission: No
== END 2018-10-30 20:00 | disposition home or self-care (01) | DRG 221 ==
LOC: AC 09:42 → ICU 09:54
PROVIDERS: Specialist; Admitting Provider Specialist; PCP Nurse Practitioner Family; Visit Provider Specialist
PROC: 0TJB8ZZ Inspection of Bladder, Via Natural or Artificial Opening Endoscopic (ICD-10-PCS; CPT 52000; principal; 2018-10-23 10:15)
PROC: 0DTE0ZZ Resection of Large Intestine, Open Approach (ICD-10-PCS; 2018-10-23 10:15)
PROC: 0T9B30Z Drainage of Bladder with Drainage Device, Percutaneous Approach (ICD-10-PCS; CPT 51102; 2018-10-23 16:15)
PROC: 0DTE0ZZ Resection of Large Intestine, Open Approach (ICD-10-PCS; principal; 2018-10-24 12:30)
DX: Z43.3 Encounter for attention to colostomy (principal); N32.0 Bladder-neck obstruction; M25.512 Pain in left shoulder; N99.111 Postprocedural bulbous urethral stricture, male; E44.0 Moderate protein-calorie malnutrition; Z68.26 Body mass index [BMI] 26.0-26.9, adult; E78.5 Hyperlipidemia, unspecified; I10 Essential (primary) hypertension; G47.33 Obstructive sleep apnea (adult) (pediatric); Z87.891 Personal history of nicotine dependence; R07.89 Other chest pain; R06.6 Hiccough
CPT/HCPCS: 36415; 44227; 74022; 80048; 80053; 81001; 83735; 85025; 87797; 93005; 94760; 97116; 97161; 97165; 97530; 97535; C9113; J1100; J1650; J1956; J2060; J2250; J2270; J2274; J2405; J2704; J2785; J2795; J3010; J3230

== ENCOUNTER → 2019-03-05 10:00 | Outpatient (CLI) | payer MEDICAID, SELFPAY ==
[2018-10-23 09:44] VITALS: BMI 26.7
[2019-03-05 11:02] LABS: Hemoglobin 16.7 g/dL (13.5-17.5); Mean Corpuscular HGB Conc 34.8 % (30-36); Mean Corpuscular Hemoglobin 30.3 PG (26-34); Mean Corpuscular Volume 87.1 fL (80-100); Platelet Count 265 X10^3/uL (150-400); Red Blood Cell Count 5.52 X10^6/uL (4.5-5.9); Red Cell Distribution Width 13.7 % (11.6-14.8); White Blood Cell Count 6.3 X10^3/uL (4.5-11.0)
[2019-03-05 12:00] LABS: Alanine Aminotransferase 26 IU/L (21-72); Albumin 4.2 g/dL (3.5-5.0); Albumin Globulin Ratio 1.4 (1.0-2.8); Alkaline Phosphatase 70 U/L (38-126); Aspartate Aminotransferase 29 IU/L (17-59); BUN Creatinine Ratio 17.8 (6-22); Bilirubin Total 0.7 mg/dL (0.2-1.3); Blood Urea Nitrogen 16 mg/dL (9-20); Calcium 9.4 mg/dL (8.4-10.2); Carbon Dioxide 26 mmol/L (22-32); Chloride 101 mmol/L (98-107); Cholesterol 267 mg/dL (140-199); Estimated Glomerular Filt Rate > 60.0 mL/min (>60); Glucose 92 mg/dL (80-110); HDL Cholesterol 48 mg/dL (40-60); HEMOLYSIS < 15 (0-50); LDL Cholesterol Calculated 182 mg/dL (<100); Potassium 4.2 mmol/L (3.4-5.1); Sodium 138 mmol/L (137-145); Total Protein 7.2 g/dL (6.3-8.2); Triglycerides 184 mg/dL (35-150)
[2019-03-09 17:05] LABS: Testosterone Free 46.1 pg/mL (35.0-155.0); Testosterone Total 390 ng/dL (250-1100)
== END ==
PROVIDERS: PCP Nurse Practitioner Family; Visit Provider Nurse Practitioner Family
DX: R53.83 Other fatigue (principal); Z68.28 Body mass index [BMI] 28.0-28.9, adult
CPT/HCPCS: 36415; 80053; 80061; 84402; 84403; 85027

== ENCOUNTER 2019-04-10 09:30 | Outpatient (RCR) | payer OTHER, SELFPAY ==
[2018-10-23 09:44] VITALS: BMI 26.7
--- NOTE | 2018-12-26 13:44 | OT.OP.EVAL ---
Visit Care Team Role Provider Type SHAYY Balderrama Primary Care Provider Advanced Sr. Director Product Management Specialty: Family Practice Address: [address] [place] [address], [id number] Email: Wai Mcdaniel PA-C Attending Provider Non-Staff Specialty: Medical Address: [address] [place] [address], [phone] Fax: Email: Occupational Therapy Initial Evaluation OT Outpatient Adult Evaluation Start: 12/22/18 14:12 Freq: Status: Active Protocol: Document 12/19/18 14:14 AMS (Rec: 12/22/18 14:40 AMS [email or web address]) General Information Visit Start Time 10:30 Visit Stop Time 11:15 Total Visit Minutes 45 Visit Number 07/[id number] Plan of Care Dates 12/19/18-03/13/19 Insurance Information Workers CompensationL&I Treatment Setting Outpatient Care Note Type Initial Evaluation Referring Physician Wai Mcdaniel PA-C 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 Per Colby Oden MD 11/18/18 = 'Patient doing well. Should restrict his activities another month and then gradually resume normal activity'. Identification Confirmed Yes: Photo ID Patient Goals 'Be able to use [my] hands' Medical History Medical records available reviewed. Physical, Occupational & Speech Therapy Outpatient Health History form completed and placed in paper chart. Significant for arthritis; back pain; headaches; jaw pain; neck pain ; vision problems; HTN; OA; sleep apnea; and surgery ( colonscopy; prostate; Abrahan procedure). L&I claim originated in April of 2018 . Previous Therapy/Therapies No: Per pt Social History Resides on personal boat. Therapy Pain Assessment Pain Present Pain Reported Right Hand Intensity 4 Scale Used Numeric (1 - 10) Left Hand Intensity 4 Scale Used Numeric (1 - 10) Left Hip Intensity 4 Scale Used Numeric (1 - 10) Left Knee Intensity 4 Scale Used Numeric (1 - 10) Right Ankle Intensity 4 Scale Used Numeric (1 - 10) Patient Questionnaires Quick Dash UE Score 50.0 Quick Dash UE Impairment 40 to 59% Impaired (Score 40- 59) Quick Dash W&S Score Sports/Performing Arts Module = 56.3 Quick Dash Work and Sport Impairment 40 to 59% Impaired (Score 40- 59) ADLs Basic ADLs WFL Comments Modifications as necessary IADLs Comments Impaired Skill Level WFL Vocational Ability Currently not working Skill Level 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 Instructed in tendon gliding, passive range of motion of exercises of distal UEs (forearm supination w/ wrist and digit extension; forearm pronation w/ wrist and digit flexion). Written and visual instructions were provided for these exercises. Initiated joint protection education w/ focus on utilization of bigger joints versus smaller joints. Maximino denied questions. Short Term Goals 1. 5/5 MMT R wrist flexion. 2. 5/5 MMT R wrist extension. 3. 5/[address] 4. 5/[address] 5. 5/5 MMT L wrist UD. 6. Patient will present with increased ability to functionally utilize hands with task completion due to reduction in pain/discomfort as indicated by 2 or less on Pain Assessment Grid relative to bilateral hands. Detention Goals 1. Patient will be modified independent with distal upper exercise program utilizing provided written and visual instructions from therapist. 2. Patient will verbalize 100% understanding of basic joint protection principles relative to the upper extremities/ hands. 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 Injuries include right hand strain, left hand strain, right wrist strain, left wrist strain, left lateral epicondylitis, and weakness of both hands. PMH: Significant for arthritis; back pain; headaches; jaw pain; neck pain ; vision problems; HTN; OA; sleep apnea; and surgery ( colonscopy; prostate; Abrahan procedure). L&I claim originated in April of 2018 . Precautions: Colby Oden MD 11/18/18= 'Patient doing well. Should restrict his activities another month and then gradually resume normal activity'. Patient Concerns/ Goals: 'Be able to use [my] hands'. Patient Goals/Concerns: 'Be able to use [my] hands' Evaluation Findings: Right hand dominant male who would like to return to work as soon as possible; despite being right hand dominant, patient is ambidexturous w/ use of tools; decreased awareness of joint protection principles; decreased wrist strength; stiffness/tightness of distal UEs; (-) use of splints; decreased thumb abd/extension bilaterally; pain of hands/ lower extremities; decreased object manipulation abilities; (-) exacerbation of symptoms of lateral elbow w/ resisted wrist extension; and decreased ability to execute functional /recreational work tasks compared to PLOF. Outpatient OT recommended to address right hand strain; left hand strain; left wrist strain; right wrist strain; left lateral epicondylitis; weakness of both hands. Home Exercise Program Please refer to treatment section of note for specific details. Comment 12 weeks Treatment Frequency Once a Week Therapeutic Contents Active Range of Motion Adaptive Equipment Education Client Education Cognitive Skills Development Functional Activities Home Exercise Program Joint Protection Manual Therapy Education Neurodevelopment Treatment Neuromuscular Re-Education Self-Care Splinting Stretching/Flexibility Activities Therapeutic Activities Therapeutic Exercises Modalities Sensory Re-education Modalities As Needed As Prescribed Types of Modalities Contrast Bath E-Stim Functional Stimulation (FES) Ice Massage Iontophoresis T.E.N. Stimulation TENS Placement/Application Ultrasound Patient Instruction Home Exercise Program Plan of Care Questions/Concerns
--- NOTE | 2018-12-26 14:09 | OT.OP.TRT ---
Visit Care Team Role Provider Type SHAYY Balderrama Primary Care Provider Advanced [place] Specialty: Family Practice Address: [address] [place] [address], [id number] Email: Wai Mcdaniel PA-C Attending Provider Non-Staff Specialty: Medical Address: [id number] [place] [address], [phone] Fax: Email: Occupational Therapy Treatment Note OT Outpatient Treatment Note - Adult Start: 12/22/18 14:12 Freq: Status: Active Protocol: Document 12/26/18 13:46 AMS (Rec: 12/26/18 14:09 AMS [email or web address]) OT Outpatient Adult Treatment Note Session Time Visit Start Time 08:30 Visit Stop Time 11:20 Total Visit Minutes 50 Visit Information Plan of Care Dates 12/19/18-03/13/19 Setting Treatment Setting Outpatient Care Visit Type Note Type Treatment Note General Information General Information Patient is a 63 year-old right hand dominant male who was referred to outpatient OT by Wai Mcdaniel PA-C, 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 Injuries include right hand strain, left hand strain, right wrist strain, left wrist strain, left lateral epicondylitis, and weakness of both hands. PMH: Significant for arthritis; back pain; headaches; jaw pain; neck pain ; vision problems; HTN; OA; sleep apnea; and surgery ( colonscopy; prostate; Abrahan procedure). L&I claim originated in April of 2018 . Precautions: Colby Oden MD 11/18/18= 'Patient doing well. Should restrict his activities another month and then gradually resume normal activity'. Patient - Subjective Identification Type Name Identification Reconciled With Medical Record Observations I have been doing my stretches per Maximino. I have adapted how I do some things, including using a tool to help tighten down the masts of my boat. Chief Complaint(s) Restricts Patient Expectation/Goals Concerns/Goals: 'Be able to use [my] hands'. Patient/Caregiver Compliance with Home Good Exercise Program Comments w/ written/visual instructions - Objective Objective Measurements Seen 1:1 for OT treatment session. (+) tenderness palpated bilaterally of thumb web spaces; (-) use of over- the-counter or custom-made splints at this time. Decreased active implementation of joint protection principles. Decreased B thumb extension/ abduction strength bilaterally . Short Term Goals 1. 5/5 MMT R wrist flexion. 2. 5/5 MMT R wrist extension. 3. 5/[address] 4. 5/[address] 5. 5/5 MMT L wrist UD. 6. Patient will present with increased ability to functionally utilize hands with task completion due to reduction in pain/discomfort as indicated by 2 or less on Pain Assessment Grid relative to bilateral hands. Fiber Product Cutting Machine Operator Goals 1. Patient will be modified independent with distal upper exercise program utilizing provided written and visual instructions from therapist. 2. Patient will verbalize 100% understanding of basic joint protection principles relative to the upper extremities/ hands. - Exercises 2 Descriptor Ultrasound. 20% duty cycle. 2. 0 w/cm2 to 7 min to each thumb web space to address stiffness. Skin intact pre- and post-treatment. 1 Descriptor HEP. Reviewed basic hand joint protection principles. Provided written and visual instructions to support carry- over of joint protection principles into every day life in the home and in the community settings. Instructed in thumb strengthening exercises (extension and abduction); provided medium firm blue theraputty and visual/written instructions to assist w/ carry-over. Instruction was completed in re: care of theraputty and ability to reduce/increase resistance based on width of putty. Complexity Upgraded - Assessment Patient Response to Treatment Good Rehab Potential Fair Impairments Identified ADLs Body Mechanics Coordination/Dexterity Flexibility Functional Activities Motor Function Pain Weakness Posture Range of Motion Recreational Activities Meaningful Activities Stiffness Swelling Soft Tissue Mobility Motor Planning Assessment of Improvement Upgraded HEP on this treatment date; additional education was completed on this date re: joint protection principles and utilization of principles in day-to-day life w/ task completion. Initiated thumb strengthening exercises. 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 Discussed need for referral to PT to address knee, ankle, foot and hip pain. Patient verbalized understanding. Home Exercise Program Please refer to treatment section of note for specific details. Reviewed with Patient/Caregiver Goals Home Exercise Program Patient/Caregiver Understanding Good - Plan Therapy Recommendations Continue with Current Program Advance per Rehabilitation Protocol Suggested Referrals Physical Therapy
--- NOTE | 2019-01-02 11:46 | OT.OP.TRT ---
Visit Care Team Role Provider Type SHAYY Balderrama Primary Care Provider Advanced Process Improvement Analyst Specialty: Family Practice Address: [address] [place] [address], [id number] Email: Wai Mcdaniel PA-C Attending Provider Non-Staff Specialty: Medical Address: [id number] [place] [address], [phone] Fax: Email: Occupational Therapy Treatment Note OT Outpatient Treatment Note - Adult Start: 12/22/18 14:12 Freq: Status: Active Protocol: Document 01/02/19 11:28 AMS (Rec: 01/02/19 11:46 AMS [email or web address]) OT Outpatient Adult Treatment Note Session Time Visit Start Time 08:30 Visit Stop Time 09:18 Total Visit Minutes 48 Visit Information Plan of Care Dates 12/19/18-03/13/19 Setting Treatment Setting Outpatient Care Visit Type Note Type Treatment Note General Information General Information Patient is a 63 year-old right hand dominant male who was referred to outpatient OT by Wai Mcdaniel PA-C, 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 Injuries include right hand strain, left hand strain, right wrist strain, left wrist strain, left lateral epicondylitis, and weakness of both hands. PMH: Significant for arthritis; back pain; headaches; jaw pain; neck pain ; vision problems; HTN; OA; sleep apnea; and surgery ( colonscopy; prostate; Abrahan procedure). L&I claim originated in April of 2018 . Precautions: Colby Oden MD 11/18/18= 'Patient doing well. Should restrict his activities another month and then gradually resume normal activity'. Patient - Subjective Identification Type Name Identification Reconciled With Medical Record Observations I have been switching the hand I have been using with the kade per Maximino. Chief Complaint(s) Restricts Patient Expectation/Goals Concerns/Goals: 'Be able to use [my] hands'. Patient/Caregiver Compliance with Home Good Exercise Program Comments w/ written/visual instructions - Objective Objective Measurements Seen 1:1 for OT treatment session. (+) tenderness palpated bilaterally of thumb web spaces; (-) use of over- the-counter or custom-made splints at this time. Decreased active implementation of joint protection principles; reviewed joint protection principles. Decreased B thumb extension/abduction strength bilaterally. Initiated wrist strengthening exercises utilizing theraband. Short Term Goals 1. 5/5 MMT R wrist flexion. 2. 5/5 MMT R wrist extension. 3. 5/[address] 4. 5/[address] 5. 5/5 MMT L wrist UD. 6. Patient will present with increased ability to functionally utilize hands with task completion due to reduction in pain/discomfort as indicated by 2 or less on Pain Assessment Grid relative to bilateral hands. Assisted Goals 1. Patient will be modified independent with distal upper exercise program utilizing provided written and visual instructions from therapist. 2. Patient will verbalize 100% understanding of basic joint protection principles relative to the upper extremities/ hands. - Exercises 3 Descriptor Wrist strengthening Wrist extension, wrist flexion , wrist UD, wrist RD Side Both Sets 1 Repetitions 10 Resistance TB #4 Complexity Upgraded 2 Descriptor Ultrasound. 20% duty cycle. 2. 0 w/cm2 to 7 min to each thumb web space to address stiffness. Skin intact pre- and post-treatment. 1 Descriptor HEP. Initiated wrist strengthening exercises; written/visual instructions were provided to patient. Personal TB #4 was also provided. Exercises were reviewed in treatment session and all questions were answered. Copy of exercises were placed in paper chart. - Assessment Patient Response to Treatment Good Rehab Potential Fair Impairments Identified ADLs Body Mechanics Coordination/Dexterity Flexibility Functional Activities Motor Function Pain Weakness Posture Range of Motion Recreational Activities Meaningful Activities Stiffness Swelling Soft Tissue Mobility Motor Planning Assessment of Improvement Upgraded HEP on this treatment date. Based on verbal report, increased carry-over of joint protection principles into day-to-day life. (+) c/o bilateral digit/hand swelling this morning upon awakening; reported that swelling has reduced in digits/hands since then. Discussed use of gloves for heat/protection of hands with work/day-to-day tasks/ when temperature decreases based on season/time of day. 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 Revisited need for referral to PT to address knee, ankle, foot and hip pain. Patient verbalized understanding. Home Exercise Program Please refer to treatment section of note for specific details. Reviewed with Patient/Caregiver Goals Home Exercise Program Patient/Caregiver Understanding Good - Plan Therapy Recommendations Continue with Current Program Advance per Rehabilitation Protocol Suggested Referrals Physical Therapy
--- NOTE | 2019-01-16 14:26 | OT.OP.TRT ---
Visit Care Team Role Provider Type SHAYY Balderrama Primary Care Provider Advanced Complex Commercial Litigation Paralegal Specialty: Family Practice Address: [address] [place] [address], [id number] Email: Wai Mcdaniel PA-C Attending Provider Non-Staff Specialty: Medical Address: [id number] [place] [address], [phone] Fax: Email: Occupational Therapy Treatment Note OT Outpatient Treatment Note - Adult Start: 12/22/18 14:12 Freq: Status: Active Protocol: Document 01/16/19 14:18 AMS (Rec: 01/16/19 14:26 AMS [email or web address]) OT Outpatient Adult Treatment Note Session Time Visit Start Time 08:30 Visit Stop Time 09:15 Total Visit Minutes 45 Visit Information Plan of Care Dates 12/19/18-03/13/19 Setting Treatment Setting Outpatient Care Visit Type Note Type Treatment Note General Information General Information Patient is a 63 year-old right hand dominant male who was referred to outpatient OT by Wai Mcdaniel PA-C, 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 Injuries include right hand strain, left hand strain, right wrist strain, left wrist strain, left lateral epicondylitis, and weakness of both hands. PMH: Significant for arthritis; back pain; headaches; jaw pain; neck pain ; vision problems; HTN; OA; sleep apnea; and surgery ( colonscopy; prostate; Abrahan procedure). L&I claim originated in April of 2018 . Precautions: Colby Oden MD 11/18/18= 'Patient doing well. Should restrict his activities another month and then gradually resume normal activity'. Patient - Subjective Identification Type Name Identification Reconciled With Medical Record Observations I have been trying to use the larger part of my arms per Maximino. Chief Complaint(s) Restricts Patient Expectation/Goals Concerns/Goals: 'Be able to use [my] hands'. Patient/Caregiver Compliance with Home Good Exercise Program Comments w/ written/visual instructions - Objective Objective Measurements Seen 1:1 for OT treatment session. (+) tenderness palpated bilaterally of thumb web spaces; (-) use of over- the-counter or custom-made splints at this time. (+) stretch reported w/ '4' of L; (-) stretch experienced w/ R. Instructed in elbow ext/thumb tuck/wrist UD. Short Term Goals 1. 5/5 MMT R wrist flexion. 2. 5/5 MMT R wrist extension. 3. 5/[address] 4. 5/[address] 5. 5/5 MMT L wrist UD. 6. Patient will present with increased ability to functionally utilize hands with task completion due to reduction in pain/discomfort as indicated by 2 or less on Pain Assessment Grid relative to bilateral hands. Custodial Goals 1. Patient will be modified independent with distal upper exercise program utilizing provided written and visual instructions from therapist. 2. Patient will verbalize 100% understanding of basic joint protection principles relative to the upper extremities/ hands. - Exercises 3 Descriptor Wrist strengthening Wrist extension, wrist flexion , wrist UD, wrist RD Side Both Sets 1 Repetitions 10 Resistance TB #4 Complexity Upgraded 2 Descriptor Ultrasound. 20% duty cycle. 2. 0 w/cm2 to 7 min to each thumb web space to address stiffness. Skin intact pre- and post-treatment. 1 Descriptor HEP. Initiated thumb stretch d /t c/o discomfort of L thumb; '4' stretch, as well as elbow ext/thumb tuck/wrist UD. Exercises were reviewed in treatment session and all questions were answered. Copy of exercises were placed in paper chart. - Assessment Patient Response to Treatment Good Rehab Potential Fair Impairments Identified ADLs Body Mechanics Coordination/Dexterity Flexibility Functional Activities Motor Function Pain Weakness Posture Range of Motion Recreational Activities Meaningful Activities Stiffness Swelling Soft Tissue Mobility Motor Planning Assessment of Improvement Upgraded HEP on this treatment date to address discomfort of L thumb. Education completed re: frequency w/ strengthening exercises versus ROM/ stretching/flexibility exercises. Patient denied questions. Based on verbal report, positive carry-over of joint protection principles into day-to-day life. Revisited need for referral to PT to address knee, ankle, foot and hip pain. Patient verbalized understanding. Recommend assessing wrist strength at time of next treatment session. Home Exercise Program Please refer to treatment section of note for specific details. Reviewed with Patient/Caregiver Goals Home Exercise Program Patient/Caregiver Understanding Good - Plan Therapy Recommendations Continue with Current Program Advance per Rehabilitation Protocol Suggested Referrals Physical Therapy
--- NOTE | 2019-01-30 11:48 | OT.OP.TRT ---
Visit Care Team Role Provider Type SHAYY Balderrama Primary Care Provider Advanced Dredge Mechanic Specialty: Family Practice Address: [address] [place] [address], [id number] Email: Wai Mcdaniel PA-C Attending Provider Non-Staff Specialty: Medical Address: [id number] [place] [address], [phone] Fax: Email: Occupational Therapy Treatment Note OT Outpatient Treatment Note - Adult Start: 12/22/18 14:12 Freq: Status: Active Protocol: Document 01/30/19 11:22 AMS (Rec: 01/30/19 11:48 AMS [email or web address]) OT Outpatient Adult Treatment Note Session Time Visit Start Time 08:35 Visit Stop Time 09:20 Total Visit Minutes 45 Visit Information Visit Number 11/02 Plan of Care Dates 12/19/18-03/13/19 Insurance Information L&I Setting Treatment Setting Outpatient Care Visit Type Note Type Treatment Note General Information General Information Patient is a 63 year-old right hand dominant male who was referred to outpatient OT by Wai Mcdaniel PA-C, 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 Injuries include right hand strain, left hand strain, right wrist strain, left wrist strain, left lateral epicondylitis, and weakness of both hands. PMH: Significant for arthritis; back pain; headaches; jaw pain; neck pain ; vision problems; HTN; OA; sleep apnea; and surgery ( colonscopy; prostate; Abrahan procedure). L&I claim originated in April of 2018 . Precautions: Colby Oden MD 11/18/18= 'Patient doing well. Should restrict his activities another month and then gradually resume normal activity'. Patient - Subjective Identification Type Name Identification Reconciled With Medical Record Observations I woke up this morning really stiff per Maximino. I was doing some canvas repair this week in my shop and I could really feel it in my elbows, wrists and hands. Chief Complaint(s) Restricts Patient Expectation/Goals Concerns/Goals: 'Be able to use [my] hands'. Patient/Caregiver Compliance with Home Good Exercise Program Comments w/ written/visual instructions - Objective Objective Measurements Seen 1:1 for OT treatment session. (+) tenderness palpated bilaterally of thumb web spaces; (-) use of over- the-counter or custom-made splints at this time. MMT testing completed on this date ; please refer to objective section of note for specific details. Short Term Goals 1. 5/[address] 01/30/19= 4+/5 MMT 2. 5/[address] 01/30/19= 4+/5 MMT 3. Patient will present with increased ability to functionally utilize hands with task completion due to reduction in pain/discomfort as indicated by 2 or less on Pain Assessment Grid relative to bilateral hands. GOALS MET 5/5 MMT R wrist flexion. *MET 01/30/19 5/5 MMT R wrist extension. * MET 01/30/19 5/5 MMT L wrist UD. *MET Jail Goals 1. Patient will be modified independent with distal upper exercise program utilizing provided written and visual instructions from therapist. GOALS MET Verbalized 100% understanding of basic joint protection principles relative to the upper extremities/hands. *MET 01/30/19 - Exercises 2 Descriptor Ultrasound. 20% duty cycle. 2. 0 w/cm2 to 7 min to each thumb web space to address swelling . Skin intact pre- and post- treatment. 1 Descriptor HEP/POC/Education. Education was completed in re: splint options. Discussed over-the- counter versus custom-made splints. Recommended patient follow-up w/ referring physicianWai PA-C, re: referral to alternative facility for custom-made splints by [facility] given that this outpatient clinic does not provide custom-made splints to patients. Patient verbalized understanding. Reviewed importance of stretches and joint protection. - Assessment Patient Response to Treatment Good Rehab Potential Fair Impairments Identified ADLs Body Mechanics Coordination/Dexterity Flexibility Functional Activities Motor Function Pain Weakness Posture Range of Motion Recreational Activities Meaningful Activities Stiffness Swelling Soft Tissue Mobility Motor Planning Assessment of Improvement Improving bilateral wrist strength; met goals for R wrist flexion, R wrist extension, and L wrist UD. Decreased strength continues to present bilaterally w/ wrist UD. Patient has been instructed in stretches and joint protection for the hands and wrists; discussed splints given that patient continues to complain of bilateral hand/ thumb pain w/ work-based tasks . Discussed [id number] versus custom-made splints. Recommended that patient follow-up w/ referring physician, Wai Mcdaniel PA-C, re: referral to alternative facility for custom-made splints by [facility] given that this outpatient clinic does not provide custom-made splints to patients. Based on verbal report, positive carry-over of joint protection principles into day-to-day life. Thus, patient has met goal in this area. Reviewed HEP and patient denied questions. Recommend having patient complete Pain Assessment Grid at time of next treatment session; follow -up in re: splints. Follow-up to assist w/ functional problem solving relative to environmental modifications to support joint protection. Home Exercise Program Please refer to treatment section of note for specific details. Reviewed with Patient/Caregiver Goals Home Exercise Program Patient/Caregiver Understanding Good - Plan Therapy Recommendations Continue with Current Program Advance per Rehabilitation Protocol Suggested Referrals Physical Therapy Occupational Therapy Assessment OT Outpatient Muscle Testing Start: 12/26/18 12:24 Freq: Status: Active Protocol: Document 01/30/19 11:22 AMS (Rec: 01/30/19 11:48 AMS [email or web address]) Wrist Strength Wrist Manual Muscle Testing Left Flexion (C7) 5 Normal Extension (C6) 5 Normal Ulnar Deviation 4+ Good+ Radial Deviation 5 Normal Comments 01/30/19 = New Measurements taken Eval Measurements L flex 5/5 MMT; L ext 5/5 MMT; L UD 4+/5 MMT; L RD 4+/5 MMT Right Flexion (C7) 5 Normal Extension (C6) 5 Normal Ulnar Deviation 5 Normal Radial Deviation 4+ Good+ Comments 01/30/19 = New Measurements taken Eval Measurements R flex 4+/5 MMT; R ext 4+/5 MMT; R UD 5/5 MMT; R RD 4+/5 MMT Digital Associate Media Director/Hand Strength Digital Associate Media Director/Hand Strength Left Digital Associate Media Director Dynamometer II 65.3 Comments Norms for Males 60-64 years of age = 76.8 +/- 20.3 Interpretation = within 1 SD below the mean Right Digital Associate Media Director Dynamometer II 67.0 Comments Norms for Males 60-64 years of age = 89.7 +/- 20.4 Interpretation = slightly > than 1 SD below the mean
--- NOTE | 2019-03-02 10:43 | OT.OP.TRT ---
Visit Care Team Role Provider Type SHAYY Balderrama Primary Care Provider Advanced Biofuels Processing Technician Specialty: Family Practice Address: [address] [place] [address], [phone] Email: [email or web address] Wai Mcdaniel PA-C Attending Provider Non-Staff Specialty: Medical Address: [address] [place] [address], [phone] Fax: Email: Occupational Therapy Treatment Note OT Outpatient Treatment Note - Adult Start: 12/22/18 14:12 Freq: Status: Active Protocol: Document 02/27/19 12:30 AMS (Rec: 03/02/19 10:43 AMS [email or web address]) OT Outpatient Adult Treatment Note Session Time Visit Start Time 09:30 Visit Stop Time 10:18 Total Visit Minutes 48 Visit Information Visit Number 12/03 Plan of Care Dates 12/19/18-03/13/19 Setting Treatment Setting Outpatient Care Visit Type Note Type Treatment Note General Information General Information Patient is a 63 year-old right hand dominant male who was referred to outpatient OT by Wai Mdcaniel PA-C, 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 Injuries include right hand strain, left hand strain, right wrist strain, left wrist strain, left lateral epicondylitis, and weakness of both hands. PMH: Significant for arthritis; back pain; headaches; jaw pain; neck pain ; vision problems; HTN; OA; sleep apnea; and surgery ( colonscopy; prostate; Abrahan procedure). L&I claim originated in April of 2018 . Precautions: Colby Oden MD 11/18/18= 'Patient doing well. Should restrict his activities another month and then gradually resume normal activity'. Patient - Subjective Identification Type Name Identification Reconciled With Medical Record Observations Pain Assessment Grid completed ; 3-4 left thumb pain. 3-5 right thumb pain. Volar and dorsal surfaces. Grid placed in paper chart. Chief Complaint(s) Restricts Patient Expectation/Goals Concerns/Goals: 'Be able to use [my] hands'. Patient/Caregiver Compliance with Home Good Exercise Program Comments w/ written/visual instructions - Objective Objective Measurements Seen 1:1 for OT treatment session. (+) tenderness palpated bilaterally of thumb web spaces; (-) use of over- the-counter or custom-made splints at this time. Short Term Goals 1. 5/[address] 01/30/19= 4+/5 MMT 2. 5/[address] 01/30/19= 4+/5 MMT 3. Patient will present with increased ability to functionally utilize hands with task completion due to reduction in pain/discomfort as indicated by 2 or less on Pain Assessment Grid relative to bilateral hands. 02/27/19= 50 % met. GOALS MET 5/5 MMT R wrist flexion. *MET 01/30/19 5/5 MMT R wrist extension. * MET 01/30/19 5/5 MMT L wrist UD. *MET Autocad Electrical Designer Goals 1. Patient will be modified independent with distal upper exercise program utilizing provided written and visual instructions from therapist. GOALS MET Verbalized 100% understanding of basic joint protection principles relative to the upper extremities/hands. *MET 01/30/19 - Exercises 2 Descriptor Ultrasound. 20% duty cycle. 2. 0 w/cm2 to 7 min to each thumb web space to address swelling . Skin intact pre- and post- treatment. 1 Descriptor HEP/POC/Education. Recommended patient follow-up w/ referring physician, Wai Mcdaniel PA-C, re: referral to alternative facility for custom-made splints by [facility] given that this outpatient clinic does not provide custom -made splints to patients. Patient verbalized understanding. Education completed re: positioning of hands/wrists w/ utilization of personal bike. Reviewed importance of stretches and joint protection. - Assessment Patient Response to Treatment Good Rehab Potential Fair Impairments Identified ADLs,Body Mechanics, Coordination/Dexterity, Flexibility,Functional Activities,Motor Function,Pain ,Weakness,Posture,Range of Motion,Recreational Activities ,Meaningful Activities, Stiffness,Swelling,Soft Tissue Mobility,Motor Planning Assessment of Improvement Continue to recommend that patient follow-up w/ referring physician, Wai Mcdaniel PA-C, re : referral to alternative facility for custom-made splints by [facility] given that this outpatient clinic does not provide custom-made splints to patients. Based on verbal report, positive carry-over of joint protection principles into day-to-day life. Pain Assessment Grid completed; pain continues to present itself in bilateral thumbs ( volar/dorsal surfaces) despite reported completion of stretches and following of joint protection principles. Education was completed re: sustained plant floor automation manager and monitoring of positioning of hands/wrists w/ bike riding. Patient has follow-up w/ doctor near end of February re: symptoms that are impacting canvas making abilities. Follow-up to assist w/ functional problem solving relative to environmental modifications to support joint protection. Home Exercise Program Please refer to treatment section of note for specific details. Reviewed with Patient/Caregiver Goals,Home Exercise Program Patient/Caregiver Understanding Good - Plan Therapy Recommendations Continue with Current Program, Advance per Rehabilitation Protocol Suggested Referrals Physical Therapy
--- NOTE | 2019-03-05 15:11 | OT.OP.TRT ---
Visit Care Team Role Provider Type SHAYY Balderrama Primary Care Provider Advanced Quarantine Officer Specialty: Family Practice Address: [address] [place] [address], [phone] Email: [email or web address] Wai Mcdaniel PA-C Attending Provider Non-Staff Specialty: Medical Address: [address] [place] [address], [phone] Fax: Email: Occupational Therapy Treatment Note OT Outpatient Treatment Note - Adult Start: 12/22/18 14:12 Freq: Status: Active Protocol: Document 03/05/19 15:04 AMS (Rec: 03/05/19 15:10 AMS [email or web address]) OT Outpatient Adult Treatment Note Session Time Visit Start Time 12:30 Visit Stop Time 13:17 Total Visit Minutes 47 Visit Information Visit Number 01/02 Plan of Care Dates 12/19/18-03/13/19 Setting Treatment Setting Outpatient Care Visit Type Note Type Treatment Note General Information General Information Patient is a 63 year-old right hand dominant male who was referred to outpatient OT by Wai Mcdaniel PA-C, 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 Injuries include right hand strain, left hand strain, right wrist strain, left wrist strain, left lateral epicondylitis, and weakness of both hands. PMH: Significant for arthritis; back pain; headaches; jaw pain; neck pain ; vision problems; HTN; OA; sleep apnea; and surgery ( colonscopy; prostate; Abrahan procedure). L&I claim originated in April of 2018 . Precautions: Colby Oden MD 11/18/18= 'Patient doing well. Should restrict his activities another month and then gradually resume normal activity'. Patient - Subjective Identification Type Name Identification Reconciled With Medical Record Observations I think I may have overdid it with the bike riding per Maximino. Chief Complaint(s) Restricts Patient Expectation/Goals Concerns/Goals: 'Be able to use [my] hands'. Patient/Caregiver Compliance with Home Good Exercise Program Comments w/ written/visual instructions - Objective Objective Measurements Seen 1:1 for OT treatment session. (+) tenderness palpated bilaterally of thumb web spaces; (-) use of over- the-counter or custom-made splints at this time. Short Term Goals 1. 5/[address] 01/30/19= 4+/5 MMT 2. 5/[address] 01/30/19= 4+/5 MMT 3. Patient will present with increased ability to functionally utilize hands with task completion due to reduction in pain/discomfort as indicated by 2 or less on Pain Assessment Grid relative to bilateral hands. 02/27/19= 50 % met. GOALS MET 5/5 MMT R wrist flexion. *MET 01/30/19 5/5 MMT R wrist extension. * MET 01/30/19 5/5 MMT L wrist UD. *MET E Business Specialist Goals 1. Patient will be modified independent with distal upper exercise program utilizing provided written and visual instructions from therapist. GOALS MET Verbalized 100% understanding of basic joint protection principles relative to the upper extremities/hands. *MET 01/30/19 - Exercises 3 Descriptor Wrist PROM exercises Tendon gliding 2 Descriptor Ultrasound. 20% duty cycle. 2. 0 w/cm2 to 7 min to each thumb web space to address swelling . Skin intact pre- and post- treatment. 1 Descriptor HEP/POC/Education. Reviewed importance of stretches and joint protection. - Assessment Patient Response to Treatment Good Rehab Potential Fair Impairments Identified ADLs,Body Mechanics, Coordination/Dexterity, Flexibility,Functional Activities,Motor Function,Pain ,Weakness,Posture,Range of Motion,Recreational Activities ,Meaningful Activities, Stiffness,Swelling,Soft Tissue Mobility,Motor Planning Assessment of Improvement Continue to recommend that patient follow-up w/ referring physician, Wai Mcdaniel PA-C, re : referral to alternative facility for custom-made splints by T given that this outpatient clinic does not provide custom-made splints to patients. Reviewed importance of daily stretches and tendon glides w/ increased personal bike use as form of transportation. Increased intrinsic tightness and overall increased stiffness of distal UEs. This is likely d/ t increased use of personal bike as primary form of transportation over the last week/several days. Follow-up to assist w/ functional problem solving relative to environmental modifications to support joint protection. Home Exercise Program Please refer to treatment section of note for specific details. Reviewed with Patient/Caregiver Goals,Home Exercise Program Patient/Caregiver Understanding Good - Plan Therapy Recommendations Continue with Current Program, Advance per Rehabilitation Protocol Suggested Referrals Physical Therapy
--- NOTE | 2019-03-17 11:41 | OT.OP.REEVAL ---
Visit Care Team Role Provider Type SHAYY Balderrama Primary Care Provider Advanced Oxygen Furnace Operator Address: [address] [place] [address], [id number] Email: [email or web address] Wai Mcdaniel PA-C Attending Provider Non-Staff Address: [address] [place] [address], [phone] Fax: Email: OT Outpatient OT Outpatient Adult Evaluation Start: 12/22/18 14:12 Freq: Status: Active Protocol: Document 12/19/18 14:14 AMS (Rec: 12/22/18 14:40 AMS [email or web address]) General Information Session Time Visit Start Time 10:30 Visit Stop Time 11:15 Total Visit Minutes 45 Visit Information Visit Number 07/05 Plan of Care Dates 12/19/18-03/13/19 Insurance Information Workers CompensationL&I Setting Treatment Setting Outpatient Care Visit Type Note Type Initial Evaluation Referral Referring Physician Wai Mcdaniel PA-C 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 Per Colby Oden MD 11/18/18 = 'Patient doing well. Should restrict his activities another month and then gradually resume normal activity'. Identification Identification Confirmed Yes: Photo ID Patient Patient Goals 'Be able to use [my] hands' Medical Information Medical History Medical records available reviewed. Physical, Occupational & Speech Therapy Outpatient Health History form completed and placed in paper chart. Significant for arthritis; back pain; headaches; jaw pain; neck pain ; vision problems; HTN; OA; sleep apnea; and surgery ( colonscopy; prostate; Abrahan procedure). L&I claim originated in April of 2018 . Previous Therapy Previous Therapy/Therapies No: Per pt Social Information Social History Resides on personal boat. Therapy Pain Assessment Pain Present Pain Present Pain Reported Location Right Hand Intensity 4 Scale Used Numeric (1 - 10) Left Hand Intensity 4 Scale Used Numeric (1 - 10) Left Hip Intensity 4 Scale Used Numeric (1 - 10) Left Knee Intensity 4 Scale Used Numeric (1 - 10) Right Ankle Intensity 4 Scale Used Numeric (1 - 10) Patient Questionnaires Quick Dash- Upper Extremity Quick Dash UE Score 50.0 Quick Dash UE Impairment 40 to 59% Impaired (Score 40- 59) Quick Dash- Work and Sports Modules Quick Dash W&S Score Sports/Performing Arts Module = 56.3 Quick Dash Work and Sport Impairment 40 to 59% Impaired (Score 40- 59) ADLs Overall Ability Basic ADLs WFL Comments Modifications as necessary IADLs Overall Function Comments Impaired Driving Skill Level WFL Vocation Vocational Ability Currently not working Skill Level Impaired 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 Instructed in tendon gliding, passive range of motion of exercises of distal UEs (forearm supination w/ wrist and digit extension; forearm pronation w/ wrist and digit flexion). Written and visual instructions were provided for these exercises. Initiated joint protection education w/ focus on utilization of bigger joints versus smaller joints. Maximino denied questions. Short Term Goals Short Term Goals 1. 5/5 MMT R wrist flexion. 2. 5/5 MMT R wrist extension. 3. 5/[address] 4. 5/[address] 5. 5/5 MMT L wrist UD. 6. Patient will present with increased ability to functionally utilize hands with task completion due to reduction in pain/discomfort as indicated by 2 or less on Pain Assessment Grid relative to bilateral hands. Custodial Goals Custodial Goals 1. Patient will be modified independent with distal upper exercise program utilizing provided written and visual instructions from therapist. 2. Patient will verbalize 100% understanding of basic joint protection principles relative to the upper extremities/ hands. 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 Injuries include right hand strain, left hand strain, right wrist strain, left wrist strain, left lateral epicondylitis, and weakness of both hands. PMH: Significant for arthritis; back pain; headaches; jaw pain; neck pain ; vision problems; HTN; OA; sleep apnea; and surgery ( colonscopy; prostate; Abrahan procedure). L&I claim originated in April of 2018 . Precautions: Colby Oden MD 11/18/18= 'Patient doing well. Should restrict his activities another month and then gradually resume normal activity'. Patient Concerns/ Goals: 'Be able to use [my] hands'. Patient Goals/Concerns: 'Be able to use [my] hands' Evaluation Findings: Right hand dominant male who would like to return to work as soon as possible; despite being right hand dominant, patient is ambidexturous w/ use of tools; decreased awareness of joint protection principles; decreased wrist strength; stiffness/tightness of distal UEs; (-) use of splints; decreased thumb abd/extension bilaterally; pain of hands/ lower extremities; decreased object manipulation abilities; (-) exacerbation of symptoms of lateral elbow w/ resisted wrist extension; and decreased ability to execute functional /recreational work tasks compared to PLOF. Outpatient OT recommended to address right hand strain; left hand strain; left wrist strain; right wrist strain; left lateral epicondylitis; weakness of both hands. Home Exercise Program Please refer to treatment section of note for specific details. Plan Comment 12 weeks Treatment Frequency Once a Week Therapeutic Contents Active Range of Motion, Adaptive Equipment Education, Client Education,Cognitive Skills Development,Functional Activities,Home Exercise Program,Joint Protection, Manual Therapy,Education, Neurodevelopment Treatment, Neuromuscular Re-Education, Self-Care,Splinting,Stretching /Flexibility Activities, Therapeutic Activities, Therapeutic Exercises, Modalities,Sensory Re- education Modalities As Needed,As Prescribed Types of Modalities Contrast Bath,E-Stim, Functional Stimulation (FES), Ice Massage,Iontophoresis,T.E. N. Stimulation,TENS Placement/ Application,Ultrasound Patient Instruction Home Exercise Program,Plan of Care,Questions/Concerns Sensory Assessment Sensory Profile2 Functional Wrist/Hand Scan Hand Side OT Outpatient Muscle Testing Start: 12/26/18 12:24 Freq: Status: Active Protocol: Document 03/13/19 13:22 AMS (Rec: 03/13/19 13:31 AMS [email or web address]) Wrist Strength Wrist Manual Muscle Testing Left Flexion (C7) 5 Normal Extension (C6) 5 Normal Ulnar Deviation 5 Normal Radial Deviation 5 Normal Comments 03/13/19= New Measurements Eval Measurements L flex 5/5 MMT; L ext 5/5 MMT; L UD 4+/5 MMT; L RD 4+/5 MMT Right Flexion (C7) 5 Normal Extension (C6) 5 Normal Ulnar Deviation 5 Normal Radial Deviation 5 Normal Comments 03/13/19= New Measurements Eval Measurements R flex 4+/5 MMT; R ext 4+/5 MMT; R UD 5/5 MMT; R RD 4+/5 MMT Cuff Setter Overlock/Hand Strength Cuff Setter Overlock/Hand Strength Left Cuff Setter Overlock Dynamometer II 65.3 Comments Norms for Males 60-64 years of age = 76.8 +/- 20.3 Interpretation = within 1 SD below the mean Right Cuff Setter Overlock Dynamometer II 67.0 Comments Norms for Males 60-64 years of age = 89.7 +/- 20.4 Interpretation = slightly > than 1 SD below the mean OT Outpatient Treatment Note - Adult Start: 12/22/18 14:12 Freq: Status: Active Protocol: Document 03/13/19 13:22 AMS (Rec: 03/13/19 13:31 AMS [email or web address]) OT Outpatient Adult Treatment Note Session Time Visit Start Time 10:30 Visit Stop Time 11:19 Total Visit Minutes 49 Visit Information Visit Number 02/02 Plan of Care Dates 03/13/19-04/24/19 Setting Treatment Setting Outpatient Care Visit Type Note Type Re-Evaluation General Information General Information Patient is a 63 year-old right hand dominant male who was referred to outpatient OT by Wai Mcdaniel PA-C, 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 Injuries include right hand strain, left hand strain, right wrist strain, left wrist strain, left lateral epicondylitis, and weakness of both hands. PMH: Significant for arthritis; back pain; headaches; jaw pain; neck pain ; vision problems; HTN; OA; sleep apnea; and surgery ( colonscopy; prostate; Abrahan procedure). L&I claim originated in April of 2018 . Precautions: Colby Oden MD 11/18/18= 'Patient doing well. Should restrict his activities another month and then gradually resume normal activity'. Patient - Subjective Identification Type Name Identification Reconciled With Medical Record Observations My hands still get sore per Maximino. Chief Complaint(s) Restricts Patient Expectation/Goals Concerns/Goals: 'Be able to use [my] hands'. Patient/Caregiver Compliance with Home Good Exercise Program Comments w/ written/visual instructions - Objective Objective Measurements Seen 1:1 for OT treatment session. (-) use of over-the- counter or custom-made splints at this time. Short Term Goals 1. Patient will present with increased ability to functionally utilize hands with task completion due to reduction in pain/discomfort as indicated by 2 or less on Pain Assessment Grid relative to bilateral hands. 02/27/19= 50 % met. GOALS MET 5/5 MMT R wrist flexion. *MET 01/30/19 5/5 MMT R wrist extension. * MET 01/30/19 5/5 MMT L wrist UD. *MET 5/[address] *MET 5/[address] *MET Custodial Goals 1. Patient will be modified independent with distal upper exercise program utilizing provided written and visual instructions from therapist. = 50% met GOALS MET Verbalized 100% understanding of basic joint protection principles relative to the upper extremities/hands. *MET 01/30/19 - Exercises 3 Descriptor Wrist ROM exercises Tendon gliding Thumb stretches/AROM 2 Descriptor Ultrasound. 20% duty cycle. 2. 0 w/cm2 to 7 min to each thumb web space to address swelling . Skin intact pre- and post- treatment. 1 Descriptor HEP/POC/Education. Reviewed importance of stretches and joint protection principles. Discussed different approaches to protect joints of distal UEs w/ task completion (e.g., taking breaks, having assist w / heavy hand tasks, use of equipment to decreased force exertion on hands). - Assessment Patient Response to Treatment Good Rehab Potential Fair Impairments Identified ADLs,Body Mechanics, Coordination/Dexterity, Flexibility,Functional Activities,Motor Function,Pain ,Weakness,Posture,Range of Motion,Recreational Activities ,Meaningful Activities, Stiffness,Swelling,Soft Tissue Mobility,Motor Planning Assessment of Improvement Patient has made progress over the last certification period relative to bilateral wrist strength and awareness; this is evidenced by Maximino meeting short term goals in the areas of wrist strength. This is also evidenced by Maximino verbalizing use of joint protection principles in day- to-day life. Education re: different approaches to preserving joints w/ work based tasks continue to be discussed. Therapist continues to recommend that patient follow-up w/ referring physician, Wai Mcdaniel PA-C, re: referral to alternative facility for custom-made splints by [facility] given that this outpatient clinic does not provide custom-made splints to patients. Therapist also continues to recommend that patient follow-up w/ referring physician, Wai Mcdaniel PA-C, re : concerns re: LE pain/ discomfort. Increased focus on stiffness/range of motion of L thumb on this treatment date . Continued outpatient OT is recommended to address hands/ distal UE abilities to maximize patient's success in day-to-day life. Home Exercise Program Please refer to treatment section of note for specific details. Reviewed with Patient/Caregiver Goals,Home Exercise Program Patient/Caregiver Understanding Good - Plan Therapy Recommendations Advance per Rehabilitation Protocol Comment 6 weeks Frequency of Treatment Once a Week Therapeutic Contents Active Range of Motion, Adaptive Equipment Education, Client Education,Cognitive Skills Development,Functional Activities,Home Exercise Program,Joint Protection, Manual Therapy,Education, Neurodevelopment Treatment, Neuromuscular Re-Education, Self-Care,Stretching/ Flexibility Activities, Therapeutic Activities, Therapeutic Exercises, Modalities,Sensory Re- education Modalities As Needed,As Prescribed Types of Modalities Contrast Bath,E-Stim, Functional Stimulation (FES), Ice Massage,Infrared, Iontophoresis,Low Level Laser, T.E.N. Stimulation,TENS Placement/Application, Ultrasound,Other Additional Types of Modalities Heat Suggested Referrals Physical Therapy
--- NOTE | 2019-03-20 16:49 | OT.OP.TRT ---
Visit Care Team Role Provider Type SHAYY Balderrama Primary Care Provider Advanced Oral Therapist Specialty: Family Practice Address: [address] [place] [address], [phone] Email: [email or web address] Wai Mcdaniel PA-C Attending Provider Non-Staff Specialty: Medical Address: [address] [place] [address], [phone] Fax: Email: Occupational Therapy Treatment Note OT Outpatient Treatment Note - Adult Start: 12/22/18 14:12 Freq: Status: Active Protocol: Document 03/20/19 16:40 AMS (Rec: 03/20/19 16:49 AMS [email or web address]) OT Outpatient Adult Treatment Note Session Time Visit Start Time 09:30 Visit Stop Time 10:18 Total Visit Minutes 48 Visit Information Visit Number 03/05 Plan of Care Dates 03/13/19-04/24/19 Setting Treatment Setting Outpatient Care Visit Type Note Type Treatment Note General Information General Information Patient is a 63 year-old right hand dominant male who was referred to outpatient OT by Wai Mcdaniel PA-C, 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 Injuries include right hand strain, left hand strain, right wrist strain, left wrist strain, left lateral epicondylitis, and weakness of both hands. PMH: Significant for arthritis; back pain; headaches; jaw pain; neck pain ; vision problems; HTN; OA; sleep apnea; and surgery ( colonscopy; prostate; Abrahan procedure). L&I claim originated in April of 2018 . Precautions: Colby Oden MD 11/18/18= 'Patient doing well. Should restrict his activities another month and then gradually resume normal activity'. Patient - Subjective Identification Type Name Identification Reconciled With Medical Record Observations I saw the Wai Jonas on the per Maximino. He recommended that I continue with this. I feel like that this right hand is doing better but this left thumb still needs some work. Chief Complaint(s) Restricts Patient Expectation/Goals Concerns/Goals: 'Be able to use [my] hands'. Patient/Caregiver Compliance with Home Good Exercise Program Comments w/ written/visual instructions - Objective Objective Measurements Seen 1:1 for OT treatment session. (-) use of over-the- counter or custom-made splints at this time. Short Term Goals 1. Patient will present with increased ability to functionally utilize hands with task completion due to reduction in pain/discomfort as indicated by 2 or less on Pain Assessment Grid relative to bilateral hands. 02/27/19= 50 % met. GOALS MET 5/5 MMT R wrist flexion. *MET 01/30/19 5/5 MMT R wrist extension. * MET 01/30/19 5/5 MMT L wrist UD. *MET 5/[address] *MET 5/[address] *MET Group Home Goals 1. Patient will be modified independent with distal upper exercise program utilizing provided written and visual instructions from therapist. = 50% met GOALS MET Verbalized 100% understanding of basic joint protection principles relative to the upper extremities/hands. *MET 01/30/19 - Exercises 3 Descriptor Wrist ROM exercises Tendon gliding Thumb stretches/AROM 2 Descriptor Ultrasound. 20% duty cycle. 2. 0 w/cm2 to L dorsal radial side of hand to address swelling. Skin intact pre- and post-treatment. 1 Descriptor HEP/POC/Education. Focus on education re: strengthening of the left thumb utilizing provided theraputty during previous treatment session. Recommend focus on thumb palmar abd, thumb ext, and thumb flex to base of 5th digit. Reviewed these exercises in treatment session ; recommended reducing width of theraputty to avoid pain range w/ execution of strengthening exercises. Complexity Upgraded - Assessment Patient Response to Treatment Good Rehab Potential Fair Impairments Identified ADLs,Body Mechanics, Coordination/Dexterity, Flexibility,Functional Activities,Motor Function,Pain ,Weakness,Posture,Range of Motion,Recreational Activities ,Meaningful Activities, Stiffness,Swelling,Soft Tissue Mobility,Motor Planning Assessment of Improvement Focus on strengthening of left thumb given c/o discomfort and decreased success w/ object manipulation (as per dropping small bowl w/ L hand previous date). Education re: avoidance of positions of deformity of the left thumb w/ object manipulation and/or resistance at MP joint. (+) response to PROM and manual mobs to left thumb. Decreased c/o stiffness or pain w/ ROM and movement. Recommend assessing thumb strength. Therapist continues to recommend that patient follow- up w/ referring physician, Wai Mcdaniel PA-C, re: referral to alternative facility for custom-made splints by [facility] given that this outpatient clinic does not provide custom -made splints to patients. Continued outpatient OT is recommended to address hands/ distal UE abilities to maximize patient's success in day-to-day life. Home Exercise Program Please refer to treatment section of note for specific details. Reviewed with Patient/Caregiver Goals,Home Exercise Program Patient/Caregiver Understanding Good - Plan Therapy Recommendations Advance per Rehabilitation Protocol Suggested Referrals Physical Therapy
--- NOTE | 2019-03-27 12:03 | OT.OP.TRT ---
Visit Care Team Role Provider Type SHAYY Balderrama Primary Care Provider Advanced Tube Trailer Filler Specialty: Family Practice Address: [address] [place] [address], [address] Email: [email or web address] Wai Mcdaniel PA-C Attending Provider Non-Staff Specialty: Medical Address: [address] [place] [address], [phone] Fax: Email: Occupational Therapy Treatment Note OT Outpatient Treatment Note - Adult Start: 12/22/18 14:12 Freq: Status: Active Protocol: Document 03/27/19 11:41 AMS (Rec: 03/27/19 12:03 AMS [email or web address]) OT Outpatient Adult Treatment Note Session Time Visit Start Time 09:30 Visit Stop Time 10:20 Total Visit Minutes 50 Visit Information Visit Number 04/04 Plan of Care Dates 03/13/19-04/24/19 Setting Treatment Setting Outpatient Care Visit Type Note Type Treatment Note General Information General Information Patient is a 63 year-old right hand dominant male who was referred to outpatient OT by Wai Mcdaniel PA-C, 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 Injuries include right hand strain, left hand strain, right wrist strain, left wrist strain, left lateral epicondylitis, and weakness of both hands. PMH: Significant for arthritis; back pain; headaches; jaw pain; neck pain ; vision problems; HTN; OA; sleep apnea; and surgery ( colonscopy; prostate; Abrahan procedure). L&I claim originated in April of 2018 . Precautions: Colby Oden MD 11/18/18= 'Patient doing well. Should restrict his activities another month and then gradually resume normal activity'. Patient - Subjective Identification Type Name Identification Reconciled With Medical Record Observations I will know more after next week per Maximino. This right shoulder has been giving a lot of trouble. I am not even able to sleep on this side anymore. Chief Complaint(s) Restricts Patient Expectation/Goals Concerns/Goals: 'Be able to use [my] hands'. Patient/Caregiver Compliance with Home Good Exercise Program Comments w/ written/visual instructions - Objective Objective Measurements Seen 1:1 for OT treatment session. Impaired body mechanics with transitional movements/stabilization of distal UEs with functional transfers. (-) use of over-the -counter or custom-made splints at this time. Please refer to strength testing section of note for specific details re: results of digit strength testing (palmar, tip, lateral pinch). Short Term Goals 1. Patient will present with increased ability to functionally utilize hands with task completion due to reduction in pain/discomfort as indicated by 2 or less on Pain Assessment Grid relative to bilateral hands. 02/27/19= 50 % met. GOALS MET 5/5 MMT R wrist flexion. *MET 01/30/19 5/5 MMT R wrist extension. * MET 01/30/19 5/5 MMT L wrist UD. *MET 5/[address] *MET 5/[address] *MET Cinema Operator Goals 1. Patient will be modified independent with distal upper exercise program utilizing provided written and visual instructions from therapist. = 50% met GOALS MET Verbalized 100% understanding of basic joint protection principles relative to the upper extremities/hands. *MET 01/30/19 - Exercises 4 Descriptor Thumb strengthening Blue firm theraputty Thumb Opposition; Lateral Richard Pinch; Tip pinch; Palmar Thumb Abduction; Thumb extension Side Left Body Position Sitting Sets 3 Repetitions 10 Resistance Blue Firm Theraputty 3 Descriptor Wrist ROM exercises Tendon gliding Thumb stretches/AROM 2 Descriptor Ultrasound. 20% duty cycle. 2. 0 w/cm2 to L dorsal radial side of hand to address swelling. Skin intact pre- and post-treatment. 1 Descriptor HEP/POC/Education. Reviewed HEP (joint protection principles; management of presenting symptoms (e.g., heat); maintaining ROM/ flexibility; modification of activities/tasks and/or environment; conservation; utilization of splints). Instructed in body mechanics to support functional transfers; discussed positioning of hands/wrists to protect joints of distal UEs. Reviewed importance of carry- over of strengthening exercises w/ theraputty. Patient denied questions. Complexity Upgraded - Assessment Patient Response to Treatment Good Rehab Potential Good Impairments Identified ADLs,Body Mechanics, Coordination/Dexterity, Flexibility,Functional Activities,Motor Function,Pain ,Weakness,Posture,Range of Motion,Recreational Activities ,Meaningful Activities, Stiffness,Swelling,Soft Tissue Mobility,Motor Planning Assessment of Improvement (+) response to PROM and manual mobs to left thumb. Decreased c/o stiffness or pain w/ ROM and movement. Decreased strength of radial side of hand bilaterally as needed w/ object manipulation; > 2+ SD from mean compared to same-aged male peers w/ richard, palmar and pinch co founder and ceo strengthening. Instruction on body mechanics w/ functional transfers w/ attention to positioning of hands/wrists w/ change of body position in space. Therapist continues to recommend that patient follow- up w/ referring physician, Wai Mcdaniel PA-C, re: referral to alternative facility for custom-made splints by T given that this outpatient clinic does not provide custom -made splints to patients. Recommended outpatient PT. Continued outpatient OT is recommended to address hands/ distal UE abilities to maximize patient's success in day-to-day life. Home Exercise Program Please refer to treatment section of note for specific details. Reviewed with Patient/Caregiver Goals,Home Exercise Program Patient/Caregiver Understanding Good - Plan Therapy Recommendations Continue with Current Program, Advance per Rehabilitation Protocol Suggested Referrals Physical Therapy
--- NOTE | 2019-04-03 12:53 | OT.OP.TRT ---
Visit Care Team Role Provider Type SHAYY Balderrama Primary Care Provider Advanced Machine Shop Instructor Specialty: Family Practice Address: [address] [place] [address], [id number] Email: [email or web address] Wai Mcdaniel PA-C Attending Provider Non-Staff Specialty: Medical Address: [address] [place] [address], [phone] Fax: Email: Occupational Therapy Treatment Note OT Outpatient Treatment Note - Adult Start: 12/22/18 14:12 Freq: Status: Active Protocol: Document 04/03/19 12:47 AMS (Rec: 04/03/19 12:53 AMS [email or web address]) OT Outpatient Adult Treatment Note Session Time Visit Start Time 09:33 Visit Stop Time 10:20 Total Visit Minutes 45 Visit Information Visit Number 05/05 Plan of Care Dates 03/13/19-04/24/19 Setting Treatment Setting Outpatient Care Visit Type Note Type Treatment Note General Information General Information Patient is a 63 year-old right hand dominant male who was referred to outpatient OT by Wai Mcdaniel PA-C, 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 Injuries include right hand strain, left hand strain, right wrist strain, left wrist strain, left lateral epicondylitis, and weakness of both hands. PMH: Significant for arthritis; back pain; headaches; jaw pain; neck pain ; vision problems; HTN; OA; sleep apnea; and surgery ( colonscopy; prostate; Abrahan procedure). L&I claim originated in April of 2018 . Precautions: Colby Oden MD 11/18/18= 'Patient doing well. Should restrict his activities another month and then gradually resume normal activity'. Patient - Subjective Identification Type Name Identification Reconciled With Medical Record Observations I am going to be seeing my new doctor this afternoon, Dr. Reyna. I am going to ask about this right shoulder and this right hip per Maximino. I have been doing my theraputty exercises every other day. Chief Complaint(s) Restricts Patient Expectation/Goals Concerns/Goals: 'Be able to use [my] hands'. Patient/Caregiver Compliance with Home Good Exercise Program Comments w/ written/visual instructions - Objective Objective Measurements Seen 1:1 for OT treatment session. Impaired body mechanics with transitional movements/stabilization of distal UEs with functional transfers. (-) use of over-the -counter or custom-made splints at this time. Please refer to strength testing section of note for specific details re: results of digit strength testing (palmar, tip, lateral pinch). Short Term Goals 1. Patient will present with increased ability to functionally utilize hands with task completion due to reduction in pain/discomfort as indicated by 2 or less on Pain Assessment Grid relative to bilateral hands. 02/27/19= 50 % met. GOALS MET 5/5 MMT R wrist flexion. *MET 01/30/19 5/5 MMT R wrist extension. * MET 01/30/19 5/5 MMT L wrist UD. *MET 5/[address] *MET 5/[address] *MET Intermediate Goals 1. Patient will be modified independent with distal upper exercise program utilizing provided written and visual instructions from therapist. = 50% met GOALS MET Verbalized 100% understanding of basic joint protection principles relative to the upper extremities/hands. *MET 01/30/19 - Exercises 4 Descriptor Thumb strengthening Blue firm theraputty Thumb Opposition; Lateral Richard Pinch; Tip pinch; Palmar Thumb Abduction; Thumb extension Side Both Body Position Sitting Sets 3 Repetitions 10 Resistance Blue Firm Theraputty Complexity Upgraded 3 Descriptor Wrist ROM exercises Tendon gliding Thumb stretches/AROM 2 Descriptor Ultrasound. 20% duty cycle. 2. 0 w/cm2 to L volar surface of thumb. Skin intact pre- and post-treatment. 1 Descriptor HEP/POC/Education. No changes to home exercise program were made on this date. - Assessment Patient Response to Treatment Good Rehab Potential Good Impairments Identified ADLs,Body Mechanics, Coordination/Dexterity, Flexibility,Functional Activities,Motor Function,Pain ,Weakness,Posture,Range of Motion,Recreational Activities ,Meaningful Activities, Stiffness,Swelling,Soft Tissue Mobility,Motor Planning Assessment of Improvement (+) response to PROM and manual mobs to left thumb. Recommended that patient follow-up w/ new PCP, Dr. Reyna, re: right shoulder/hip pain/discomfort. Increased tolerance for blue theraputty relative to bilateral thumb strengthening observed on this date. Recommend considering upgrade to firm, maher theraputty for hand strengthening at time of next treatment session. Continued outpatient OT is recommended to address hands/distal UE abilities to maximize patient' s success in day-to-day life. Home Exercise Program Please refer to treatment section of note for specific details. Reviewed with Patient/Caregiver Goals,Home Exercise Program Patient/Caregiver Understanding Good - Plan Therapy Recommendations Continue with Current Program, Advance per Rehabilitation Protocol
--- NOTE | 2019-04-10 10:25 | OT.OP.TRT ---
Visit Care Team Role Provider Type SHAYY Balderrama Primary Care Provider Advanced Pre K Lead Teacher Specialty: Family Practice Address: [address] [place] [address], [id number] Email: [email or web address] Wai Mcdaniel PA-C Attending Provider Non-Staff Specialty: Medical Address: [address] [place] [address], [phone] Fax: Email: Occupational Therapy Treatment Note OT Outpatient Treatment Note - Adult Start: 12/22/18 14:12 Freq: Status: Active Protocol: Document 04/10/19 10:25 AMS (Rec: 04/14/19 13:22 AMS [email or web address]) OT Outpatient Adult Treatment Note Session Time Visit Start Time 09:30 Visit Stop Time 09:15 Total Visit Minutes 45 Visit Information Visit Number 06/04 Plan of Care Dates 03/13/19-04/24/19 Setting Treatment Setting Outpatient Care Visit Type Note Type Treatment Note General Information General Information Patient is a 63 year-old right hand dominant male who was referred to outpatient OT by Wai Mcdaniel PA-C, 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 Injuries include right hand strain, left hand strain, right wrist strain, left wrist strain, left lateral epicondylitis, and weakness of both hands. PMH: Significant for arthritis; back pain; headaches; jaw pain; neck pain ; vision problems; HTN; OA; sleep apnea; and surgery ( colonscopy; prostate; Abrahan procedure). L&I claim originated in April of 2018 . Precautions: Colby Oden MD 11/18/18= 'Patient doing well. Should restrict his activities another month and then gradually resume normal activity'. Patient - Subjective Identification Type Name Identification Reconciled With Medical Record Observations I was thinking that I could use both hands to attach the snaps per Maximino. Chief Complaint(s) Restricts Patient Expectation/Goals Concerns/Goals: 'Be able to use [my] hands'. Patient/Caregiver Compliance with Home Good Exercise Program Comments w/ written/visual instructions - Objective Objective Measurements Seen 1:1 for OT treatment. (-) use of [id number] or custom-made splints at this time. Short Term Goals GOALS MET 5/5 MMT R wrist flexion. *MET 01/30/19 5/5 MMT R wrist extension. * MET 01/30/19 5/5 MMT L wrist UD. *MET 5/[address] *MET 5/[address] *MET GOAL DISCHARGED Patient will present with increased ability to functionally utilize hands with task completion due to reduction in pain/discomfort as indicated by 2 or less on Pain Assessment Grid relative to bilateral hands. 04/10/19= indicated 3-4/10 on the Pain Assessment Grid relative to B hands. Senior Living Goals GOALS MET Verbalized 100% understanding of basic joint protection principles relative to the upper extremities/hands. *MET 01/30/19 Mod independent w/ distal UE HEP utilizing provided written and visual instructions from therapist. *MET 04/10/19 - Exercises 4 Descriptor Thumb strengthening Blue firm theraputty Thumb Opposition; Lateral Richard Pinch; Tip pinch; Palmar Thumb Abduction; Thumb extension Side Both Body Position Sitting Sets 3 Repetitions 10 Resistance Blue Firm Theraputty 3 Descriptor Wrist ROM exercises Tendon gliding Thumb stretches/AROM 2 Descriptor Ultrasound. 20% duty cycle. 2. 0 w/cm2 to L volar surface of thumb. Skin intact pre- and post-treatment. 1 Descriptor HEP/POC/Education. Reviewed current HEP. Patient denied questions. - Assessment Patient Response to Treatment Good Rehab Potential Good Impairments Identified ADLs,Body Mechanics, Coordination/Dexterity, Flexibility,Functional Activities,Motor Function,Pain ,Weakness,Posture,Range of Motion,Recreational Activities ,Meaningful Activities, Stiffness,Swelling,Soft Tissue Mobility,Motor Planning Assessment of Improvement Patient is mod I w/ HEP at this time utilizing provided written and visual instructions. Patient has demonstrated gains relative to bilateral wrist strengthening , as evidenced by progress to meeting short term goals relative to muscle testing in these areas. Despite progress that has been made in outpatient OT, patient continues to present with bilateral hand/thumb pain. Therapist has completed education re: joint protection principles/management of symptoms/potential use of splints/ROM exercises to maintain available range of motion and to address stiffness. Home Exercise Program Please refer to treatment section of note for specific details. Reviewed with Patient/Caregiver Goals,Home Exercise Program Patient/Caregiver Understanding Good - Plan Therapy Recommendations Discharge to Home Exercise Program
--- NOTE | 2019-04-14 13:38 | OT.OP.DC ---
Visit Care Team Role Provider Type SHAYY Balderrama Primary Care Provider Advanced Servicer [employer] Machines Address: [address] [place] [address], [id number] Email: [email or web address] Wai Mcdaniel PA-C Attending Provider Non-Staff Address: [address] [place] [address], [phone] Fax: Email: OT Outpatient OT Outpatient Adult Evaluation Start: 12/22/18 14:12 Freq: Status: Active Protocol: Document 12/19/18 14:14 AMS (Rec: 12/22/18 14:40 AMS [email or web address]) General Information Session Time Visit Start Time 10:30 Visit Stop Time 11:15 Total Visit Minutes 45 Visit Information Visit Number 07/05 Plan of Care Dates 12/19/18-03/13/19 Insurance Information Workers CompensationL&I Setting Treatment Setting Outpatient Care Visit Type Note Type Initial Evaluation Referral Referring Physician Wai Mcdaniel PA-C 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 Per Colby Oden MD 11/18/18 = 'Patient doing well. Should restrict his activities another month and then gradually resume normal activity'. Identification Identification Confirmed Yes: Photo ID Patient Patient Goals 'Be able to use [my] hands' Medical Information Medical History Medical records available reviewed. Physical, Occupational & Speech Therapy Outpatient Health History form completed and placed in paper chart. Significant for arthritis; back pain; headaches; jaw pain; neck pain ; vision problems; HTN; OA; sleep apnea; and surgery ( colonscopy; prostate; Abrahan procedure). L&I claim originated in April of 2018 . Previous Therapy Previous Therapy/Therapies No: Per pt Social Information Social History Resides on personal boat. Therapy Pain Assessment Pain Present Pain Present Pain Reported Location Right Hand Intensity 4 Scale Used Numeric (1 - 10) Left Hand Intensity 4 Scale Used Numeric (1 - 10) Left Hip Intensity 4 Scale Used Numeric (1 - 10) Left Knee Intensity 4 Scale Used Numeric (1 - 10) Right Ankle Intensity 4 Scale Used Numeric (1 - 10) Patient Questionnaires Quick Dash- Upper Extremity Quick Dash UE Score 50.0 Quick Dash UE Impairment 40 to 59% Impaired (Score 40- 59) Quick Dash- Work and Sports Modules Quick Dash W&S Score Sports/Performing Arts Module = 56.3 Quick Dash Work and Sport Impairment 40 to 59% Impaired (Score 40- 59) ADLs Overall Ability Basic ADLs WFL Comments Modifications as necessary IADLs Overall Function Comments Impaired Driving Skill Level WFL Vocation Vocational Ability Currently not working Skill Level Impaired 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 Instructed in tendon gliding, passive range of motion of exercises of distal UEs (forearm supination w/ wrist and digit extension; forearm pronation w/ wrist and digit flexion). Written and visual instructions were provided for these exercises. Initiated joint protection education w/ focus on utilization of bigger joints versus smaller joints. Maximino denied questions. Short Term Goals Short Term Goals 1. 5/5 MMT R wrist flexion. 2. 5/5 MMT R wrist extension. 3. 5/[address] 4. 5/[address] 5. 5/5 MMT L wrist UD. 6. Patient will present with increased ability to functionally utilize hands with task completion due to reduction in pain/discomfort as indicated by 2 or less on Pain Assessment Grid relative to bilateral hands. Alf Goals Alf Goals 1. Patient will be modified independent with distal upper exercise program utilizing provided written and visual instructions from therapist. 2. Patient will verbalize 100% understanding of basic joint protection principles relative to the upper extremities/ hands. 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 Injuries include right hand strain, left hand strain, right wrist strain, left wrist strain, left lateral epicondylitis, and weakness of both hands. PMH: Significant for arthritis; back pain; headaches; jaw pain; neck pain ; vision problems; HTN; OA; sleep apnea; and surgery ( colonscopy; prostate; Abrahan procedure). L&I claim originated in April of 2018 . Precautions: Colby Oden MD 11/18/18= 'Patient doing well. Should restrict his activities another month and then gradually resume normal activity'. Patient Concerns/ Goals: 'Be able to use [my] hands'. Patient Goals/Concerns: 'Be able to use [my] hands' Evaluation Findings: Right hand dominant male who would like to return to work as soon as possible; despite being right hand dominant, patient is ambidexturous w/ use of tools; decreased awareness of joint protection principles; decreased wrist strength; stiffness/tightness of distal UEs; (-) use of splints; decreased thumb abd/extension bilaterally; pain of hands/ lower extremities; decreased object manipulation abilities; (-) exacerbation of symptoms of lateral elbow w/ resisted wrist extension; and decreased ability to execute functional /recreational work tasks compared to PLOF. Outpatient OT recommended to address right hand strain; left hand strain; left wrist strain; right wrist strain; left lateral epicondylitis; weakness of both hands. Home Exercise Program Please refer to treatment section of note for specific details. Plan Comment 12 weeks Treatment Frequency Once a Week Therapeutic Contents Active Range of Motion, Adaptive Equipment Education, Client Education,Cognitive Skills Development,Functional Activities,Home Exercise Program,Joint Protection, Manual Therapy,Education, Neurodevelopment Treatment, Neuromuscular Re-Education, Self-Care,Splinting,Stretching /Flexibility Activities, Therapeutic Activities, Therapeutic Exercises, Modalities,Sensory Re- education Modalities As Needed,As Prescribed Types of Modalities Contrast Bath,E-Stim, Functional Stimulation (FES), Ice Massage,Iontophoresis,T.E. N. Stimulation,TENS Placement/ Application,Ultrasound Patient Instruction Home Exercise Program,Plan of Care,Questions/Concerns Sensory Assessment Sensory Profile2 Functional Wrist/Hand Scan Hand Side OT Outpatient Muscle Testing Start: 12/26/18 12:24 Freq: Status: Active Protocol: Document 04/10/19 10:25 AMS (Rec: 04/14/19 13:22 AMS [email or web address]) Wrist Strength Wrist Manual Muscle Testing Left Flexion (C7) 5 Normal Extension (C6) 5 Normal Ulnar Deviation 5 Normal Radial Deviation 5 Normal Comments 03/13/19= New Measurements Eval Measurements L flex 5/5 MMT; L ext 5/5 MMT; L UD 4+/5 MMT; L RD 4+/5 MMT Right Flexion (C7) 5 Normal Extension (C6) 5 Normal Ulnar Deviation 5 Normal Radial Deviation 5 Normal Comments 03/13/19= New Measurements Eval Measurements R flex 4+/5 MMT; R ext 4+/5 MMT; R UD 5/5 MMT; R RD 4+/5 MMT Garment Sewing Machine Operator/Hand Strength Garment Sewing Machine Operator/Hand Strength Left Garment Sewing Machine Operator Dynamometer II 65.3 Lateral Pinch Strengh (lbs) 8.5 Palmar Pinch Strength (lbs) 6.0 Tip Pinch Strength (lbs) 5.3 Comments Garment Sewing Machine Operator Norms for Males 60-64 years of age = 76.8 +/- 20.3 Garment Sewing Machine Operator Interpretation = within 1 SD below the mean Lateral Richard Pinch Norms for Males 65-69 years of age = 22. 0 +/- 3.6; > 3 SD below the mean Palmar Pinch Norms for Males 65-69 years of age = 21.2 +/- 4.1; > 4 SD below the mean Tip Pinch Norms for Males 65- 69 years of age = 15.4 +/- 2.9 ; > 3 SD below the mean Right Garment Sewing Machine Operator Dynamometer II 67.0 Lateral Pinch Strengh (lbs) 9.2 Palmar Pinch Strength (lbs) 9.7 Tip Pinch Strength (lbs) 7.0 Comments Garment Sewing Machine Operator Norms for Males 60-64 years of age = 89.7 +/- 20.4 Garment Sewing Machine Operator Interpretation = slightly > than 1 SD below the mean Lateral Richard Pinch for Males 65 -69 years of age = 23.4 +/- 3. 9; > 3 SD below the mean Palmar Pinch for Males 65-69 years of age = 21.4 +/- 3.0; > 3 SD below the mean Tip Pinch Norms for Males 65- 69 years of age = 17.0 +/- 4.2 ; > 2 SD below the mean OT Outpatient Treatment Note - Adult Start: 12/22/18 14:12 Freq: Status: Active Protocol: Document 04/10/19 10:25 AMS (Rec: 04/14/19 13:22 AMS [email or web address]) OT Outpatient Adult Treatment Note Session Time Visit Start Time 09:30 Visit Stop Time 09:15 Total Visit Minutes 45 Visit Information Visit Number 06/04 Plan of Care Dates 03/13/19-04/24/19 Setting Treatment Setting Outpatient Care Visit Type Note Type Treatment Note General Information General Information Patient is a 63 year-old right hand dominant male who was referred to outpatient OT by Wai Mcdaniel PA-C, 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 Injuries include right hand strain, left hand strain, right wrist strain, left wrist strain, left lateral epicondylitis, and weakness of both hands. PMH: Significant for arthritis; back pain; headaches; jaw pain; neck pain ; vision problems; HTN; OA; sleep apnea; and surgery ( colonscopy; prostate; Abrahan procedure). L&I claim originated in April of 2018 . Precautions: Colby Oden MD 11/18/18= 'Patient doing well. Should restrict his activities another month and then gradually resume normal activity'. Patient - Subjective Identification Type Name Identification Reconciled With Medical Record Observations I was thinking that I could use both hands to attach the snaps per Maximino. Chief Complaint(s) Restricts Patient Expectation/Goals Concerns/Goals: 'Be able to use [my] hands'. Patient/Caregiver Compliance with Home Good Exercise Program Comments w/ written/visual instructions - Objective Objective Measurements Seen 1:1 for OT treatment. (-) use of okzf-jca-rytjkcz or custom-made splints at this time. Short Term Goals GOALS MET 5/5 MMT R wrist flexion. *MET 01/30/19 5/5 MMT R wrist extension. * MET 01/30/19 5/5 MMT L wrist UD. *MET 5/[address] *MET 5/[address] *MET GOAL DISCHARGED Patient will present with increased ability to functionally utilize hands with task completion due to reduction in pain/discomfort as indicated by 2 or less on Pain Assessment Grid relative to bilateral hands. 04/10/19= indicated 3-4/10 on the Pain Assessment Grid relative to B hands. Customer Solutions Coordinator Goals GOALS MET Verbalized 100% understanding of basic joint protection principles relative to the upper extremities/hands. *MET 01/30/19 Mod independent w/ distal UE HEP utilizing provided written and visual instructions from therapist. *MET 04/10/19 - Exercises 4 Descriptor Thumb strengthening Blue firm theraputty Thumb Opposition; Lateral Richard Pinch; Tip pinch; Palmar Thumb Abduction; Thumb extension Side Both Body Position Sitting Sets 3 Repetitions 10 Resistance Blue Firm Theraputty 3 Descriptor Wrist ROM exercises Tendon gliding Thumb stretches/AROM 2 Descriptor Ultrasound. 20% duty cycle. 2. 0 w/cm2 to L volar surface of thumb. Skin intact pre- and post-treatment. 1 Descriptor HEP/POC/Education. Reviewed current HEP. Patient denied questions. - Assessment Patient Response to Treatment Good Rehab Potential Good Impairments Identified ADLs,Body Mechanics, Coordination/Dexterity, Flexibility,Functional Activities,Motor Function,Pain ,Weakness,Posture,Range of Motion,Recreational Activities ,Meaningful Activities, Stiffness,Swelling,Soft Tissue Mobility,Motor Planning Assessment of Improvement Patient is mod I w/ HEP at this time utilizing provided written and visual instructions. Patient has demonstrated gains relative to bilateral wrist strengthening , as evidenced by progress to meeting short term goals relative to muscle testing in these areas. Despite progress that has been made in outpatient OT, patient continues to present with bilateral hand/thumb pain. Therapist has completed education re: joint protection principles/management of symptoms/potential use of splints/ROM exercises to maintain available range of motion and to address stiffness. Home Exercise Program Please refer to treatment section of note for specific details. Reviewed with Patient/Caregiver Goals,Home Exercise Program Patient/Caregiver Understanding Good - Plan Therapy Recommendations Discharge to Home Exercise Program
== END 2019-04-22 16:29 | disposition home or self-care (01) ==
LOC: OT 09:30
PROVIDERS: PCP Nurse Practitioner Family; Visit Provider Physician Assistant
DX: S66.911A Strain of unspecified muscle, fascia and tendon at wrist and hand level, right hand, initial encounter (principal); S66.912A Strain of unspecified muscle, fascia and tendon at wrist and hand level, left hand, initial encounter; M77.12 Lateral epicondylitis, left elbow; R29.898 Other symptoms and signs involving the musculoskeletal system
CPT/HCPCS: 97035; 97110; 97165; 97530

== ENCOUNTER → 2019-06-01 17:36 | Outpatient (CLI) | payer MEDICARE, SELFPAY ==
[2018-10-23 09:44] VITALS: BMI 26.7
--- NOTE | 2019-06-01 17:42 | DI.RAD.S_ITS ---
PROCEDURE: XR SHOULDER RT MIN 2V INDICATIONS: Right shoulder impingement TECHNIQUE: 2 views of the shoulder were acquired. COMPARISON: [facility], CR, XR CHEST 1V, 05/30/2018, 5:55. FINDINGS: Bones: No fractures or dislocations. No suspicious bony lesions. Visualized ribs appear intact. Mild joint narrowing with periarticular osteophyte formation. Soft tissues: No suspicious soft tissue calcifications. IMPRESSION: Mild acromioclavicular and glenohumeral joint degeneration. Dictated by: Diego LEIJA Interpreted: Marylu Manuel MD on 06/02/2019 at 17:25 Approved by: Marylu Manuel M.D. on 06/02/2019 at 18:36
--- NOTE | 2019-06-01 17:42 | DI.RAD.S_ITS ---
PROCEDURE: XR CERVICAL SPINE 4V OR 5V INDICATIONS: Cervical Strain TECHNIQUE: 6 views of the cervical spine were acquired. COMPARISON: None. FINDINGS: Bones: No fractures or dislocations to the T1 level. Grade 1 retrolisthesis C4-C5 and C5-C6. Multilevel disc degeneration, most notably and moderate to severe to C4-C5 and C5-C6 level where there also bilateral neural foraminal narrowing. Mild multilevel uncovertebral hypertrophy. No suspicious bony lesions. There is normal range of motion between flexion and extension, with preserved normal bony alignment. Soft tissues: Prevertebral soft tissues are normal in thickness. IMPRESSION: Multilevel degenerative change. Dictated by: Diego HARRINGTON Interpreted: Marylu Manuel MD on 06/02/2019 at 17:26 Approved by: Marylu Manuel M.D. on 06/02/2019 at 18:36
== END ==
PROVIDERS: Family Provider Family Medicine; PCP Family Medicine; Visit Provider Personal Emergency Response Attendant
DX: S16.1XXA Strain of muscle, fascia and tendon at neck level, initial encounter (principal); M75.41 Impingement syndrome of right shoulder; M19.011 Primary osteoarthritis, right shoulder; M43.12 Spondylolisthesis, cervical region; M47.812 Spondylosis without myelopathy or radiculopathy, cervical region; M25.511 Pain in right shoulder; K57.80 Diverticulitis of intestine, part unspecified, with perforation and abscess without bleeding
CPT/HCPCS: 72040; 72050; 73030; 99214

== ENCOUNTER → 2019-07-23 09:16 | Outpatient (CLI) | payer MEDICARE, SELFPAY ==
[2019-07-20 09:46] VITALS: BMI 26.7
[2019-07-23 10:23] LABS: Add Manual Diff / Slide Review NO; Basophils Absolute Auto 0 /uL (0-100); Basophils Percent Auto 0.8 % (0-2); Eosinophils Absolute Auto 200 /uL (0-450); Eosinophils Percent Auto 3.5 % (2-4); Hematocrit 47.1 % (41-53); Hemoglobin 16.1 g/dL (13.5-17.5); Lymphocytes Absolute Auto 1600 /uL (1100-4500); Mean Corpuscular HGB Conc 34.1 % (30-36); Mean Corpuscular Hemoglobin 30.1 PG (26-34); Mean Corpuscular Volume 88.1 fL (80-100); Monocytes Absolute Auto 600 /uL (0-900); Monocytes Percent Auto 11.3 % (3-14); Neutrophils Absolute Auto 3100 /uL (1500-7000); Neutrophils Percent Auto 56.4 % (50-75); Platelet Count 262 X10^3/uL (150-400); Red Blood Cell Count 5.34 X10^6/uL (4.5-5.9); Red Cell Distribution Width 13.9 % (11.6-14.8); White Blood Cell Count 5.5 X10^3/uL (4.5-11.0)
[2019-07-23 11:20] LABS: HEMOLYSIS < 15 (0-50); Iron 87 ug/dL (49-181)
[2019-07-23 11:30] LABS: Percent Iron Saturation 27 % (20-50); Total Iron Binding Capacity 323 ug/dL (261-462); Transferrin 272 mg/dL (206-381)
[2019-07-23 11:52] LABS: Prostate Specific Antigen Scrn 1.49 ng/mL (0.1-4.0)
[2019-07-23 12:10] LABS: Vitamin B12 Reflex MMA if <400 449 pg/mL (239-931)
[2019-07-28 10:51] LABS: Testosterone Free 85.2 pg/mL (35.0-155.0); Testosterone Total 426 ng/dL (250-1100)
== END ==
PROVIDERS: PCP Family Medicine; Visit Provider Family Medicine
DX: E34.9 Endocrine disorder, unspecified (principal); R53.83 Other fatigue; G47.33 Obstructive sleep apnea (adult) (pediatric); G47.19 Other hypersomnia; G47.00 Insomnia, unspecified; R06.83 Snoring; Z76.89 Persons encountering health services in other specified circumstances; Z12.5 Encounter for screening for malignant neoplasm of prostate
CPT/HCPCS: 36415; 82607; 83540; 83550; 84402; 84403; 85025; 99214; G0103

== ENCOUNTER → 2019-12-23 12:32 | Outpatient (CLI) | payer MEDICARE, SELFPAY ==
[2019-07-20 09:46] VITALS: BMI 26.7
[2019-12-24 08:12] LABS: SARS CoV19 IgG Negative (Negative)
== END ==
PROVIDERS: PCP Family Medicine; Referring Provider Family Medicine; Visit Provider Family Medicine
DX: G47.19 Other hypersomnia (principal)
CPT/HCPCS: 36415; 86769

== ENCOUNTER → 2019-12-25 16:07 | Outpatient (CLI) | payer MEDICARE, SELFPAY ==
[2019-07-20 09:46] VITALS: BMI 26.7
[2019-12-26 13:15] LABS: COVID19 Sendout Not Detected (Not Detect)
== END ==
PROVIDERS: PCP Family Medicine; Visit Provider Nurse Practitioner
DX: Z01.812 Encounter for preprocedural laboratory examination (principal)
CPT/HCPCS: 87635

== ENCOUNTER 2019-12-28 09:29 | Day surgery (SDC) | payer MEDICARE, SELFPAY ==
[2019-07-20 09:46] VITALS: BMI 26.7
[2019-12-23 15:13] VITALS: BMI 32.0
[2019-12-28] VITALS (13 sets, daily range): BP systolic 121–160; BP diastolic 58–97; PULSE 55–68; RESP 13–94; TEMP 36.1–36.4; O2SAT 14–96; BMI 31.1
--- NOTE | 2019-12-28 10:11 | PM.PREOP ---
Pre-operative Note COVID-19 COVID-19 status: Negative Result date/Date tested (Pos, Neg/Pending): 12/25/19 Interval Note History & Physical reviewed/Exam performed by Physician: Yes Changes to H&P: No
[2019-12-28] MEDS: LACTATED RINGERS 1,000 ML 42 ML IV (10:14)
[2019-12-28] MEDS: CLINDAMYCIN 900 MG/50 ML PIGGYBACK 50 MG IV (10:55)
--- NOTE | 2019-12-28 11:15 | SUR.OPER ---
Supine on padded OR bed, head on pillow, arms secured on padded arm boards at <90 degrees abduction, legs uncrossed, safety belt at thigh, tape over blanket over lower legs.
[2019-12-28] MEDS: BUPIVACAINE 0.5% (PF) VIAL 30 ML INJ (11:19)
--- NOTE | 2019-12-28 13:04 | PM.OP.1 ---
Operative Date/Time/Diagnoses Date of procedure: 12/28/19 Time of procedure: 13:04 Pre-op diagnosis: Incisional ventral hernia reducible Post-op diagnosis: same Procedure & Clinicians Procedure: Repair with underlay of mesh Same procedure as scheduled: Yes Indications: Symptomatic incisional hernia Surgeon: Colby Oden Click Yes if Unassisted: Yes Anesthesia Type: General Operative Notes Findings: Hernia Closure Type: primary Specimen(s): none sent Prosthetic devices, grafts, tissues, transplants, or devices: 2.5 in diameter circular mesh underlay Estimated Blood Loss (mL): 10 Blood products transfused: none Procedure in detail: A patient was placed supine on the operating room table and underwent general LMA anesthesia. He was prepped and draped in the usual fashion. A skin incision was made to the right of the umbilicus in an old scar and carried down to the level the fascia. I proceeded to attempt to dissect the sac off the overlying skin of the umbilicus but they were fused and I quickly entered the sac and dissected back to the level the fascia. The fascia was cleared circumferentially. This was a rather tedious process. I then dissected the peritoneum back off of the abdominal wall circumferentially. I created small defects in the peritoneum which were closed with interrupted 3 0 [id number] Vicryl stitch. I then laid a 2.5 in diameter circular mesh under the fascial defect and close the defect with interrupted [id number] Ethibond incorporating the tails of the mesh into the closure. As discussed with the patient preoperatively the umbilicus was quite attenuated and I was concerned about its viability therefore excised it. The subcu was reapproximated in 2 levels with 2 0 Vicryl. The subcu was closed with interrupted 3 0 Vicryl and the skin was closed with a running 4 0 Vicryl subcuticular stitch and Steri-Strips. Dressing was applied and the patient was awakened, extubated and taken recovery room good condition. There were no apparent complications. Complications: none Post-operative Condition: stable Disposition: PACU Plan for aftercare: Follow-up in the office
[2019-12-28] MEDS: fentaNYL 100 MCG/2 ML INJ IV ×2 (13:12→13:21)
[2019-12-28] MEDS: OXYCODONE/ACETAMINOPHEN 5/325 TABLET 1 TAB PO (13:37)
== END 2019-12-28 15:15 | disposition home or self-care (01) ==
PROVIDERS: PCP Family Medicine; Referring Provider Specialist; Visit Provider Specialist
PROC: (CPT 49560; principal; 2019-12-28 10:45)
DX: K43.2 Incisional hernia without obstruction or gangrene (principal); G47.33 Obstructive sleep apnea (adult) (pediatric)
CPT/HCPCS: 49560; 49568; C1781; J1100; J1885; J2405; J2704; J3010